=== PATIENT | female | born 1935 | race Caucasian/White ===

== ENCOUNTER 2017-11-04 18:11 | Inpatient (IN) | payer OTHER ==
[~2017-11-04] VITALS: Ht 152.4 cm; Wt 74.4 kg
--- NOTE | 2017-11-04 18:11 | NUR ---
PT BIBA BLS TO BED 6
[2017-11-04 18:18] VITALS: BP 117/38
--- NOTE | 2017-11-04 18:20 | NUR ---
82 YO F BIBA SENT FROM [facility] FOR HYPERNATREMIA, AND INCREASED GENERALIZED WEAKNESS. PT ARRIVES IN C-COLLAR. PER FAMILY, PT HAD A FALL 1-2 MONTHS AGO W/ SURGERY FOR FRACTURED C4 AND C5. PT IS GCS 3 AT THIS TIME AND UPON ARRIVAL. FACILITY REPORTS PT USUALLY OPENS EYES, BUT SHE HAS NOT SINCE ARRIVING TO ER. PT HAS A GTUBE WITH SURROUNDING SKIN INTACT. WILCOX CATHETER INSERTED, WITH 200 ML CLEAR, YELLOW URINE. UNSTAGEABLE WOUNDS TO BACK OF HEAD AND COCCYX. RR TACHYPNIC, SHALLOW AND APPEAR LABORED, WITH SYMMETRICAL RISE AND FALL OF THE CHEST. LUNGS BILATERALLY CLEAR TO AUSCULTATION AT THIS TIME. O2 SAT 90% ON 2L/MIN NC. CMS INTACT. ABD SOFT. ER MD ADAM NOTIFIED OF PT STATUS. PT NEEDS MET. SAFETY PRECAUTIONS IN PLACE. DAUGHTER AT BEDSIDE. WILL CONTINUE TO MONITOR. MED HX: DEMENTIA, ASPIRATION PNA, QUADRIPLEGIC S/P FALL, OPEN REDUCTION OF C4-C5, CORONARY ARTERY BYPASS GRAFT 2007,VENTRAL HERNIA REPAIR, DM
--- NOTE | 2017-11-04 18:30 | NUR ---
PT PLACED SUPINE AT THIS TIME WITH PILLOWS POSITIONED ON HER DOUG PROMINENCES. WILL COTNINUE TO MONITOR.
[2017-11-04] MEDS ORDERED: NACL 0.9% 1,000 ML IV SCH (18:33)
[2017-11-04] MEDS ORDERED: MULT10VI3 IV (18:41)
[2017-11-04] MEDS ORDERED: NOVR SUBQ (18:41)
[2017-11-04] MEDS ORDERED: MEMA5TAB PO (18:41)
[2017-11-04] MEDS ORDERED: ASCO500T45 PO ×2 (18:41→22:58)
[2017-11-04] MEDS ORDERED: METO-485 PO ×2 (18:41→22:58)
[2017-11-04] MEDS ORDERED: ASPI81CT89 PO (18:41)
[2017-11-04] MEDS ORDERED: FERR75LI22 PO (18:41)
[2017-11-04] MEDS ORDERED: ACET-8386 PO (18:41)
[2017-11-04] MEDS ORDERED: GABA100C PO (18:41)
[2017-11-04] MEDS ORDERED: QUET25TA PO (18:41)
[2017-11-04] MEDS ORDERED: LOV40I SUBQ (18:41)
[2017-11-04] MEDS ORDERED: PRO5 PO (18:41)
[2017-11-04] MEDS ORDERED: PIPE1SOL IV ×2 (18:41→22:58)
[2017-11-04] MEDS ORDERED: ALBU2SYR49 PO (18:41)
[2017-11-04] MEDS ORDERED: [UNRECOGNIZED DRUG - CODE] PO (18:41)
[2017-11-04] MEDS ORDERED: ACET-2619 PO (18:41)
--- NOTE | 2017-11-04 19:15 | NUR ---
PATIENT TAKEN TO CT VIA [facility] WITH TECH.
[2017-11-04 19:24] LABS: BASOPHILS % (AUTO) 0.3 % (0.0-2.0); EOSINOPHILS # (AUTO) 0.1 K/uL (0-0.4); EOSINOPHILS % (AUTO) 1.4 % (0.0-4.0); HEMATOCRIT 31.9 % (36-48); HEMOGLOBIN 9.3 g/dL (12.0-16.0); LYMPHOCYTES # (AUTO) 1.7 K/uL (2.5-16.5); LYMPHOCYTES % (AUTO) 18.8 % (20.5-51.1); MEAN CORPUSCULAR HEMOGLOBIN 28 pg (27-31); MEAN CORPUSCULAR HGB CONC 29 g/dL (33-37); MONOCYTES # (AUTO) 0.3 K/uL (0.8-1.0); MONOCYTES % (AUTO) 2.9 % (1.7-9.3); NEUTROPHILS # (AUTO) 6.8 K/uL (1.8-7.7); NEUTROPHILS % (AUTO) 76.6 % (42.2-75.2); PLATELET COUNT (AUTO) 192 K/uL (140-450); RED BLOOD CELL COUNT(AUTO) 3.32 MIL/uL (4.20-5.40); RED CELL DISTRIBUTION WIDTH 16.7 % (11.6-13.7); WHITE BLOOD COUNT (AUTO) 8.8 K/uL (4.8-10.8)
--- NOTE | 2017-11-04 19:28 | NUR ---
PT RETURN FROM CT.
[2017-11-04 19:49] LABS: ALBUMIN 1.5 g/dL (3.4-5.0); ANION GAP 3.6 (8-16); ASPARTATE AMINOTRANSFERASE 190 U/L (15-37); CARBON DIOXIDE 39.7 mmol/L (21-32); CHLORIDE 139 mmol/L (98-107); CREATININE 0.7 mg/dL (0.6-1.3); GLUCOSE 162 mg/dL (74-106); POTASSIUM 3.3 mmol/L (3.5-5.1); TOTAL BILIRUBIN 0.2 mg/dL (0.0-1.0); UREA NITROGEN, BLOOD 56 mg/dL (7-18)
--- NOTE | 2017-11-04 19:51 | NUR ---
PERIPHERAL IV UNABLE TO BE INSERTED DUE TO PERIPHERAL EDEMA. ORE WASHER NOTIFIED, AND CHARGE UNABLE TO INSERT IV. ER MD WATTERS NOTIFIED. WILL CONTINUE TO MONITOR.
[2017-11-04 19:57] LABS: SODIUM SERUM 179 mmol/L (136-145)
--- NOTE | 2017-11-04 19:57 | NUR ---
CRITICAL LAB VALUE FOR SODIUM 179 RECEIVED AT THIS TIME AND VERIFIED BY YORDAN IN THE LAB. ER MD WATTERS NOTIFIED.
--- NOTE | 2017-11-04 19:59 | NUR ---
CRITICAL LAB VALUE LACTIC ACID 2.4 RECEIVED FOM YORDAN IN THE LAB. ER MD WATTERS NOTIFIED.
--- NOTE | 2017-11-04 20:25 | NUR ---
PT TURNED ONTO HER RIGHT SIDE AT THIS TIME WITH ADDITIONAL PILLOWS PLACED ON DOUG PROMINENCES. WILL CONTINUE TO MONITOR.
--- NOTE | 2017-11-04 20:53 | NUR ---
ER MD WATTERS AT BEDSIDE AT THIS TIME.
[2017-11-04] MEDS ORDERED: DOCUSATE SODIUM 100 MG GELCAP PO PRN (21:15)
[2017-11-04] MEDS ORDERED: ACETAMINOPHEN 325 MG TAB PO PRN (21:15)
[2017-11-04] MEDS ORDERED: ONDANSETRON 4 MG/2 ML VIAL IM/IVP PRN (21:15)
[2017-11-04] MEDS ORDERED: NACL 0.9% 1,000 ML IV ONE (21:30)
[2017-11-04] MEDS ORDERED: MECLIZINE 25 MG TAB PO SCH (21:30)
--- NOTE | 2017-11-04 21:30 | NUR ---
PATIENT TAKEN TO CT VIA [facility] WITH TECH.
[2017-11-04 21:42] LABS: PROTHROMBIN TIME 10.2 secs (10.8-13.4)
[2017-11-04] MEDS ORDERED: NACL 0.45% 1,000 ML IV SCH (21:45)
[2017-11-04 21:53] LABS: CHOL/HDL RATIO 4.1 (1-4.5); FREE T4 (FREE THYROXINE) 0.7 ng/dL (0.76-1.46); MAGNESIUM 2.8 mg/dL (1.8-2.4); PHOSPHORUS 3.3 mg/dL (2.5-4.9); THYROID STIMULATING HORMONE 2.97 uIU/mL (0.34-3.74)
--- NOTE | 2017-11-04 21:55 | NUR ---
PATIENT RETURN FROM CT.
--- NOTE | 2017-11-04 22:21 | NUR ---
PT STILL ON THE FLOOR DUE TO PICTURES BEING TAKEN OF UNSTAGEABLE WOUNDS TO VARIOUS LOCATIONS OF PT BODY AND CLEANING PT UP. CHARGE NURSE KESHA AWARE. SHAHEED WATTERS AWARE. PT HEADING TO THE FLOOR AT THIS TIME ACCOMPANIED BY FEI PRESCOTT AND CITLALLI CARRASCO. Addendum: 11/06/17 at 0922 by [email or web address] PT STILL ON THE ER FLOOR DUE TO PICTURES BEING TAKEN OF UNSTAGEABLE WOUNDS TO VARIOUS LOCATIONS OF PT BODY AND CLEANING PT UP. PT HAS UNSTAGEABLE WOUND TO THE BACK OF THE HEAD R/T HARD C-COLLAR BEING WORN FOR EXTENDED PERIOD OF 2 MONTHS PER FAMILY. THE WOUND WAS ROUGHLY 3 INCH BY 4 INCH AND CIRCULAR WITH WHAT APPEARS TO BE BONE EXPOSED. THE SKIN SURROUNDING OF THE WOUND APPEARS TO BE PINK AND FLESHY AT THIS TIME. WOUND TO COCCYX HAD A LARGE, ISLAND DRESSING THAT WAS SATURATED WITH GREEN EXUDATE AND FOUL-SMELLING. THE WOUNDS MEASURE ROUGHLY 5 INCH BY 6 INCH AND CIRCULAR IN SHAPE. FECES WAS IN THE WOUND, BUT NO FECES WERE NOTED IN HER ADULT BREIF. THE WOUND WAS CLEANED BY MYSELF DURING THIS ASSESSMENT. EXPOSED DOWN TO WHAT APPEARS TO BE THE BONE, WITH NOTED ESCHAR AND POSSIBLE NECROSIS OF SURROUNDING SKIN. PT TURNED ONTO HER LEFT SIDE AT THIS TIME TO PREVENT FURTHER BREAKDOWN. CHARGE NURSE KESHA AWARE. SHAHEED WATTERS AWARE. PT HEADING TO THE FLOOR AT THIS TIME ACCOMPANIED BY FEI PRESCOTT AND CITLALLI CARRASCO.
--- NOTE | 2017-11-04 22:30 | NUR ---
Patient will be admitted to care of [facility]. Admitted to TELE. Will go to room 123A. Belongings list completed. Report to CITLALLI BROOKS.
[2017-11-04] MEDS ORDERED: IBUPROFEN 400 MG TAB GT PRN (22:40)
--- NOTE | 2017-11-04 22:45 | NUR ---
RECEIVED FROM ER PER AMAN PT. ACCOMPANIED BY FAMILY MEMBERS. PT. RESIDENT OF [facility]. RECEIVED WITH C-COLLAR IN PLACE. 02 AT 4 LPM/NC , GT IN PLACE, WILCOX CATHETER IN PLACE . PT. IS LETHARGIC. MOANS WHEN MOVED BUT DOES NOT OPEN EYES. NON VERBAL. TELEMETRY MONITORING. CARE PLANS FOR THE NIGHT DISCUSSED BY MD TEJADA TO FAMILY MEMBERS. NEEDS WILL BE ANTICIPATED AND WILL BE MET. PT. SKIN NOT INTACT RT PER STOCK PITCHER WITH SURGICAL WOUND TO BACK OF HEAD AND SACRAL WOUND. SEE PICTURES. HX. OF QUADRIPLEGIA, DEMENTIA, PNA ASPIRATION, VENTRAL HERNIA, DM AND POST FALL IN SNF.
[2017-11-04] MEDS ORDERED: VAN500I IV (22:58)
[2017-11-04] MEDS ORDERED: MEMA5TAB GT (22:58)
[2017-11-04] MEDS ORDERED: GABA100C GT (22:58)
[2017-11-04] MEDS ORDERED: IBUP-1842 GT (22:58)
[2017-11-04] MEDS ORDERED: LEVEMIR SUBQ (22:58)
[2017-11-04] MEDS ORDERED: LACT10SO1 PO (22:58)
[2017-11-04] MEDS ORDERED: FURO-572 GT (22:58)
[2017-11-04] MEDS ORDERED: FERR75LI22 GT (22:58)
--- NOTE | 2017-11-04 23:00 | NUR ---
FAMILY MEMBERS LEFT. NEEDS OF PPT. WILL BE ATTENDED. TOTAL CARE. IMMOBILE.
[2017-11-04] MEDS ORDERED: KCL 20 MEQ/WATER INJ PREMIX 100 ML IV SCH (23:10)
--- NOTE | 2017-11-04 23:17 | NUR ---
INFORMED MD TEJADA THAT PT.S 02 SAT WITH 4LPM/NC IS AT 80 %. SAID "I WILL ORDER RESPIRATORY THERAPIST TO TITRATE IT. " INFORMED HIM OF CT ABDOMEN AND PELVIS WITHOUT CONTRAST RESULT FAXED IN BY RADIOLOGIST. AWARE.
[2017-11-04 23:30] VITALS: BP 94/33
--- NOTE | 2017-11-04 23:32 | NUR ---
RESPIRATORY THERAPIST IN HERE TO TITRATE 02 FOR PT. NOW ON 02 AT 6LPM/OXYMIZER NOW 02 SAT AT 96 %.
[2017-11-04] MEDS ORDERED: PIPERACILLIN/TAZOBACTAM 2.25 GM VIAL IV ONE (23:42)
[2017-11-05] VITALS (24 sets, daily range): BP systolic 78–116; BP diastolic 26–95
--- NOTE | 2017-11-05 00:06 | NUR ---
PAGED RESPIRATORY THERAPIST TO RE-TITRATE 02. PT. IN HERE TO OBSERVE PT. INFORMED MD TEJADA OF PRESENT SITUATION OF PT.
--- NOTE | 2017-11-05 00:10 | NUR ---
RESPIRATORY THERAPIST TITRATED 02 TO 9 LITERS NOW . 02 SAT 93 %.
[2017-11-05] MEDS ORDERED: FUROSEMIDE 40 MG/4 ML VIAL IVP SCH (01:50)
[2017-11-05 02:42] LABS: ANION GAP 2.9 (8-16); CARBON DIOXIDE 37.7 mmol/L (21-32); CHLORIDE 143 mmol/L (98-107); CREATININE 0.6 mg/dL (0.6-1.3); GLUCOSE 138 mg/dL (74-106); POTASSIUM 3.6 mmol/L (3.5-5.1); UREA NITROGEN, BLOOD 50 mg/dL (7-18)
[2017-11-05 02:46] LABS: SODIUM SERUM 180 mmol/L (136-145)
--- NOTE | 2017-11-05 02:53 | NUR ---
CRITICAL LAB VALUE: SODIUM 180. SPOKE WITH DR. TEJADA AND HE WILL BE PLACING AN ORDER TO INCREASE IVF TO NS 4.5% @ 100ML/HR
--- NOTE | 2017-11-05 03:15 | NUR ---
PT. IVF FLUID INCREASED TO 100 ML/H. IVF SITE TO LEFT FOREARM#22 WITH GOOD BLOOD RETURN. NEEDS ANTICIPATED AND WILL BE MET. TURNED Q 2H SIDE TO SIDE ONLY.
[2017-11-05] MEDS ORDERED: PIPERACILLIN IV SCH (05:00)
[2017-11-05] MEDS ORDERED: DEXTROSE IV SCH (05:00)
[2017-11-05] MEDS ORDERED: TAZOBACTAM IV SCH (05:00)
[2017-11-05] MEDS ORDERED: PIPERACILLIN/TAZOBACTAM 2.25 GM VIAL IV ONE (05:02)
[2017-11-05] MEDS: BLOOD GLUCOSE MONITORING 1 DEV DEV FS SCH ×4 (05:10→21:00)
[2017-11-05 06:53] LABS: BASOPHILS % (AUTO) 0.2 % (0.0-2.0); EOSINOPHILS # (AUTO) 0.1 K/uL (0-0.4); EOSINOPHILS % (AUTO) 1.7 % (0.0-4.0); HEMATOCRIT 22.5 % (36-48); LYMPHOCYTES % (AUTO) 17.6 % (20.5-51.1); MEAN CORPUSCULAR HEMOGLOBIN 29 pg (27-31); MEAN CORPUSCULAR HGB CONC 30 g/dL (33-37); MEAN CORPUSCULAR VOLUME 95.4 fL (80-94); MONOCYTES # (AUTO) 0.2 K/uL (0.8-1.0); MONOCYTES % (AUTO) 3.5 % (1.7-9.3); NEUTROPHILS # (AUTO) 4.5 K/uL (1.8-7.7); PLATELET COUNT (AUTO) 144 K/uL (140-450); RED BLOOD CELL COUNT(AUTO) 2.36 MIL/uL (4.20-5.40); RED CELL DISTRIBUTION WIDTH 16.8 % (11.6-13.7); WHITE BLOOD COUNT (AUTO) 5.8 K/uL (4.8-10.8)
--- NOTE | 2017-11-05 07:22 | NUR ---
OXYMIZER TITRATED TO 5L. NURSE AWARE WILL CONTINUE TO MONITOR. PT NOT SOB AT THIS TIME.
--- NOTE | 2017-11-05 07:30 | NUR ---
ENDORSED TO THE NEXT RN FOR CONTINUITY OF CARE. PT. OPENS EYES AT THIS TIME. NONE VERBAL STILL. NEEDS ANTICIPATED AND MET. TURNED TO SIDES ONLY AND NOT SUPINE IN THIS SHIFT. WILCOX CATHETER DRAINING WELL. FOR US ABD. AND NEEDS TO BE NPO. ENDORSED TO THE AM RN.
--- NOTE | 2017-11-05 07:50 | NUR ---
PATIENT IS DROWSY, EYE OPEN SPONTANEOUSLY, NO VERBAL RESPONSE. RESPIRATION EVEN, UNLABOR ON 5L OXIMIZER. SKIN DRY AND WARM. WILCOX IS DRAINING WELL. GTUBE PATENT AND INTACT. IV PATENT AND INTACT. FLACC 0. NO DISTRESS NOTED AT THIS TIME. BED AT LOW POSITION, SIDE RAILS UP. CALL LIGHT WITHIN REACH
[2017-11-05 07:51] LABS: HEMOGLOBIN 6.8 g/dL (12.0-16.0)
[2017-11-05 08:19] LABS: ANION GAP 7.6 (8-16); CARBON DIOXIDE 34.7 mmol/L (21-32); CHLORIDE 142 mmol/L (98-107); POTASSIUM 3.3 mmol/L (3.5-5.1); SODIUM SERUM 181 mmol/L (136-145)
[2017-11-05 08:20] LABS: CREATININE 0.6 mg/dL (0.6-1.3); GLUCOSE 113 mg/dL (74-106); UREA NITROGEN, BLOOD 50 mg/dL (7-18)
[2017-11-05 08:21] LABS: MAGNESIUM 2.7 mg/dL (1.8-2.4); PHOSPHORUS 2.9 mg/dL (2.5-4.9)
[2017-11-05] MEDS ORDERED: FERROUS SULFATE 300 MG/5 ML UDC GT SCH (09:00)
[2017-11-05] MEDS ORDERED: FUROSEMIDE 20 MG TAB GT SCH (09:00)
[2017-11-05] MEDS ORDERED: ASPIRIN 81 MG TAB.CHEW PO SCH (09:00)
[2017-11-05] MEDS: METOCLOPRAMIDE 10 MG TAB PO SCH ×2 (09:00→21:58)
[2017-11-05] MEDS: ATORVASTATIN 20 MG TAB PO SCH (09:00)
[2017-11-05] MEDS: FUROSEMIDE 20 MG/2 ML VIAL IVP SCH (09:00)
[2017-11-05] MEDS: LACTULOSE 20 GM/30 ML UDC PO SCH (09:00)
[2017-11-05] MEDS: ASCORBIC ACID 500 MG TAB PO SCH (09:00)
[2017-11-05] MEDS ORDERED: VANCOMYCIN 500 MG VIAL IV SCH (09:00)
--- NOTE | 2017-11-05 09:00 | NUR ---
PATIENT IS LETHARGIC, ONLY RESPONSIVE TO NAME AND SHAKING. PO MEDS WERE HELD.
--- NOTE | 2017-11-05 09:00 | NUR ---
GTUBE IS IN PLACE, INTACT, AND DRY. RESIDUAL CHECKED AT 5ML. MEDS WERE GIVEN PER ORDER
--- NOTE | 2017-11-05 09:18 | NUR ---
PATIENT HAS BEEN SCREENED AND CATEGORIZED HIGH NUTRITION RISK. PATIENT WILL BE SEEN WITHIN 1-2 DAYS OF ADMISSION. 11/05/17 11/06/[address]
[2017-11-05] MEDS: MEMANTINE 10 MG TAB GT SCH ×2 (09:51→21:58)
[2017-11-05] MEDS: GABAPENTIN 100 MG CAP GT SCH ×3 (09:51→16:39)
[2017-11-05] MEDS: DEXTROSE 5% 1,000 ML IV SCH ×2 (09:52→20:25)
[2017-11-05] MEDS: INSULIN LANTUS 100 UNITS/ML 10 ML VIAL SUBQ SCH (09:58)
[2017-11-05] MEDS ORDERED: VANCOMYCIN 500 MG in DEXTROSE 5% 100 ML IV SCH ×2 (10:00→21:00)
--- NOTE | 2017-11-05 10:00 | NUR ---
PATIENT WAS REPOSITIONED, PERINEAL CARE WAS GIVEN. OPTIFOAM WAS APPLIED TO SACRAL WOUND.
[2017-11-05] MEDS ORDERED: NACL 0.9% 500 ML IV SCH ×2 (12:00→12:55)
--- NOTE | 2017-11-05 12:01 | NUR ---
DR. HERRERA WAS MADE AWARE OF PATIENT'S BP TRENDING DOWN, WILL MEDICATE PER ORDER
--- NOTE | 2017-11-05 12:57 | NUR ---
Social Service Notes: I attempted to meet with Patient, She is non-verbal and unable to empress her needs at this time. These senior copywriter will be calling Patient's Family to confirm and gather her information.
[2017-11-05] MEDS ORDERED: SODIUM FERRIC GLUCONATE 125 MG in NACL 0.9% 100 ML IV SCH (13:00)
--- NOTE | 2017-11-05 13:03 | NUR ---
DR. HERRERA WAS MADE AWARE OF HER BP AFTER NS BOLUS, AND POTASSIUM 3.3. NEW ORDER WAS RECEIVED. WILL MEDICATE PER ORDER.
--- NOTE | 2017-11-05 13:30 | NUR ---
PATIENT WAS REPOSITIONED. WOUND DRESSING WAS CHANGED. WOUND CULTURE WAS OBTAINED AND SENT TO LAB PER ORDER.
--- NOTE | 2017-11-05 13:30 | NUR ---
PATIENT IS LETHARGIC, RESPONDING TO PAIN. RESPIRATION IS LABORED, TACHYPNIEC ON 7L OXIMIZER. RT WAS NOTIFIED. BP DECREASED TO 84/29. DR. HERRERA WAS MADE AWARE
[2017-11-05] MEDS: VANCOMYCIN 500 MG in DEXTROSE 5% 100 ML IV SCH ×2 (13:35→23:31)
[2017-11-05] MEDS: PIPER/TAZO 2.25GM/D5W PREMIX 50 ML IV SCH ×3 (13:35→23:31)
[2017-11-05] MEDS ORDERED: NOREPINEPHRINE 4 MG in DEXTROSE 5% 250 ML IV PRN (14:05)
--- NOTE | 2017-11-05 14:05 | NUR ---
Travel Manager Notes: I attempted to call Patient's daughter Filomena Yen at to confirm and gather Patient's information. Patient's Daughter did not respond the call and I left her a voice mail MSG with my contact information and a request for a call back.
--- NOTE | 2017-11-05 14:21 | NUR ---
11/05/17 RD INITIAL ASSESSMENT COMPLETED PLEASE REFER TO NUTRITION ASSESSMENT UNDER CARE ACTIVITY FOR ESTIMATED NUTRITIONAL NEEDS. 1. RECOMMEND NUTREN PULMONARY THROUGH G-TUBE AT GOAL RATE OF 45ML/HR, PROVIDING 1080 TOTAL ML, 1620 KCAL, 73 GM PROTEIN, AND 845 ML FREE WATER. THIS WILL MEET 100% OF PT'S ESTIMATED NEEDS. 2. RECOMMEND 125ML Q4H FOR WATER FLUSHES. 3. RD TO FOLLOW-UP 2-3 DAYS, HIGH RISK MARI GIRON RD
[2017-11-05] MEDS ORDERED: ALBUMIN HUMAN 25% 100 ML IV SCH (15:00)
--- NOTE | 2017-11-05 15:04 | NUR ---
Sludge Filtration Operator Notes: I attempted to speak Patient's daughter Filomena Yen and call her several times (3x) at to confirmed, gather patient's information, and inform her of patient been transferred to ICU unit. Patient's Daughter did not respond the calls and I left her voicemail MSGS with my contact information and a request for a call back
--- NOTE | 2017-11-05 15:08 | NUR ---
Black And White Printer Operator Notes: I call [facility], I spoke to Janet to discuss and gather Patient's information, confirmed Patien'ts daughter contact information. Janet Stated that patient was at [facility] since the beganin of october and placed to their facility since 10/18/17. We confirmed Patient's daughter contact information and only number of contact is . Janet then transfer my call with RN that had more information about Patient. According to Janine patient has no issues with medications and is bed bound with wounds in pelvic area, has 02. Patient is on a 7 days skilled bed hold and will be able to returned to [facility] when ready and clear for discharge. I thank RN for Information and ended the call.
--- NOTE | 2017-11-05 15:11 | NUR ---
ENDORSEMENT GIVEN TO THE SENIOR MANAGER CREATIVE SERVICES FOR CONTINUITY OF CARE.
--- NOTE | 2017-11-05 15:15 | NUR ---
RECEIVED PT FROM MICHOACANO POWELL/MST RN. PT IS NOT VERBAL BUT RESPONDS TO PAIN, OPENS HER EYES SPONTANEOUSLY. SKIN IS NOT INTACT; SEE WOUND ASSESSMENT AND CHART WITH PICTURES; OPEN WOUNDS ARE RED, WITH A FOUL ODER AND DISCHARGE.. PT HAD C-COLLAR ON FROM HER SURGERY IN SEPTEMBER 2017. SHE IS PARAPLEGIC. DOES NOT TRACT. PUPILS ARE SLUGGISH AND DO NOT RESPOND EVERY TIME ASSESSED. PT HAS WILCOX CATH IN PLACE, BRIGHT YELLOW URINE IN BAG. PT IS EDEMATOUS, PITTING +2 ON ALL EXTREMITIES. S1S2 HEARD, BRADYCARDIA. PTS LUNGS SOUND CONGESTED; WHEEZING PRESENT IN LOWER LOBES WITH. PT HAS G-TUBE IN PLACE, ZERO RESIDUALS, AREAS AROUND G-TUBE RED, HAS FOUL ODER AND DISCHARGE (WILL NOTIFY AND TAKE CULTURE). RIGHT WRIST PERIPHERAL IV 24 RAUL, FLUSHES, ASYMPTOMATIC. LEFT WRIST PERIPHERAL IV RAUL 22 FLUSHES, ASYMPTOMATIC. BED LOCKED AND IN LOWEST POSITION. CALL LIGHT WITHIN REACH. WILL CLOSELY MONITOR.
[2017-11-05 15:30] LABS: ANION GAP 6.8 (8-16); CARBON DIOXIDE 34.1 mmol/L (21-32); CHLORIDE 141 mmol/L (98-107); CREATININE 0.6 mg/dL (0.6-1.3); GLUCOSE 132 mg/dL (74-106); UREA NITROGEN, BLOOD 45 mg/dL (7-18)
[2017-11-05 15:34] LABS: POTASSIUM 2.9 mmol/L (3.5-5.1); SODIUM SERUM 179 mmol/L (136-145)
--- NOTE | 2017-11-05 15:40 | NUR ---
SPOKE WITH DR. HERRERA ABOUT POLST SAYING "GENERALLY NO INTENSIVE CARE". HE IS MADE AWARE.
--- NOTE | 2017-11-05 16:06 | NUR ---
REDUCED OXYMIZER TO 7L.
[2017-11-05] MEDS ORDERED: KCL 20 MEQ/WATER INJ PREMIX 200 ML IV SCH (16:30)
[2017-11-05] MEDS: SODIUM FERRIC GLUCONATE 125 MG in NACL 0.9% 100 ML IV SCH (16:47)
--- NOTE | 2017-11-05 17:44 | NUR ---
CALLED PT'S DAUGHTER FOR SURGERY CONSENT. NO ANSWER, LEFT A GENERIC VOICEMAIL ASKING FOR A CALL BACK.
--- NOTE | 2017-11-05 18:18 | NUR ---
DR DRAKE SPOKE WITH PT DAUGHTER ABOUT ID SURGERY THAT IS GOING TO TAKE PLACE. THEY ARE TAKING PT TO THE OR NOW.
[2017-11-05] MEDS ORDERED: BUPIVACAINE-MPF/EPI 0.25% 30 ML VIAL INJ ONE (18:49)
--- NOTE | 2017-11-05 19:10 | NUR ---
gave report to night rn for continuation of care
--- NOTE | 2017-11-05 19:15 | NUR ---
RECEIVED REPORT FROM DAY NURSE, PT CURRENTLY IN OR.
--- NOTE | 2017-11-05 19:32 | NUR ---
RECIEVED REPORT FROM OR NURSE JESSICA. PT SEDATED, AROUSABLE. NONVERBAL. BP 83/28 HR 50S SINUS ANGEL. PT COOL TO TOUCH +1 EDEMA TO UPPER EXTREMITIES. LUNGS DIMINISHED. ABD SOFT NON DISTENDED PEG TUBE CLAMPED. F/C CLEAR YELLOW URINE. SKIN NON INTACT. SACRAL COCCYX WOUND NOTED, WITH DRESSING CDI. PERIPHERAL IVS X2 TO BILATERAL ARMS. WILL CONTINUE TO OBSERVE.
--- NOTE | 2017-11-05 19:45 | NUR ---
SPOKE WITH DR. HERNANDEZ ABOUT PLAN OF CARE, STATED NO COMPRESSIONS, ALL OTHER LIFE SAVING TREATMENT OK. WILL CONTINUE TO MONITOR.
--- NOTE | 2017-11-05 20:00 | NUR ---
@ BEDSIDE. MD CALLED DAUGHTER TO UPDATE. PER DAUGHTER AND MD CODE STATUS MODIFIED TO NO COMPRESSIONS ALL OTHER LIFE SAVING TREATMENT OK. MD TO UPDATE ORDER WILL CONTINUE TO OBSERVE. SEE CHART FOR FURTHER DETAILS.
--- NOTE | 2017-11-05 20:55 | NUR ---
TIMEOUT TAKEN @BEDSIDE WITH DR. HERNANDEZ AND CHIEF MINISTER FOR CENTRAL LINE INSERTION. CONSENT GIVEN BY DAUGHTER, VIVIANE.
[2017-11-05] MEDS ORDERED: QUEtiapine FUMARATE 25 MG TAB ONE (20:56)
--- NOTE | 2017-11-05 21:11 | NUR ---
DR. GALEANO AT BEDSIDE TO SEE PT. WILL FOLLOW-UP WITH ANY ORDER.
[2017-11-05] MEDS ORDERED: NOREPINEPHRINE 4 MG/4 ML VIAL IV ONE (21:42)
[2017-11-05] MEDS: QUEtiapine FUMARATE 25 MG TAB PO SCH (21:58)
[2017-11-05] MEDS: NOREPINEPHRINE 8 MG in DEXTROSE 5% 250 ML IV PRN (21:59)
[2017-11-05 22:29] LABS: ANION GAP 5.7 (8-16); CARBON DIOXIDE 35.2 mmol/L (21-32); CHLORIDE 140 mmol/L (98-107); CREATININE 0.5 mg/dL (0.6-1.3); GLUCOSE 111 mg/dL (74-106); UREA NITROGEN, BLOOD 42 mg/dL (7-18)
[2017-11-05 22:30] LABS: SODIUM SERUM 178 mmol/L (136-145)
[2017-11-05 22:31] LABS: POTASSIUM 2.9 mmol/L (3.5-5.1)
--- NOTE | 2017-11-05 23:24 | NUR ---
SPOKE WITH GIG PHARMACIST ABOUT ZOSYN SCHEDULE, INFORMED PHARMACIST THAT LAST DOSE WAS GIVEN @ 2200 and 0000 DOSE WAS TOO EARLY. PHARMACIST STATED OK TO GIVE 0000 DOSE AND STAY WITH ANTIBIOTIC SCHEDULE.
[2017-11-06] VITALS (96 sets, daily range): BP systolic 72–163; BP diastolic 25–120
--- NOTE | 2017-11-06 00:15 | NUR ---
PT TURNED AND REPOSITIONED, BULKY DRESSING CDI TO SACRAL/COCCYX AREA. WILL CONTINUE TO OBSERVE.
--- NOTE | 2017-11-06 01:00 | NUR ---
PT ASLEEP, COMFORTABLE, RELAXED. NO S/S OF ACUTE DISTRESS NOTED. LEVOPHED @ 8 MCG//MIN. WILL CONTINUE TO OBSERVE.
--- NOTE | 2017-11-06 02:30 | NUR ---
PT ASLEEP NO ACUTE DISTRESS NOTED. WILL CONTINUE TO MONITOR
--- NOTE | 2017-11-06 04:00 | NUR ---
PT TURNED AND REPOSITIONED; BATH GIVEN. LINEN CHANGED. SKIN BREAKDOWN NOTED TO BILATERAL FEET. WILL CONTINUE TO OBSERVE.
[2017-11-06] MEDS: PIPER/TAZO 2.25GM/D5W PREMIX 50 ML IV SCH ×4 (05:28→23:49)
[2017-11-06] MEDS: KCL 20 MEQ/WATER INJ PREMIX 100 ML IV SCH ×2 (05:29→06:41)
--- NOTE | 2017-11-06 06:00 | NUR ---
DR. DEJESUS @ BEDSIDE.
[2017-11-06] MEDS ORDERED: FUROSEMIDE 20 MG/2 ML VIAL IVP ONE (06:20)
[2017-11-06 06:32] LABS: HEMATOCRIT 21.4 % (36-48); MEAN CORPUSCULAR HEMOGLOBIN 28 pg (27-31); MEAN CORPUSCULAR HGB CONC 30 g/dL (33-37); MEAN CORPUSCULAR VOLUME 95.2 fL (80-94); PLATELET COUNT (AUTO) 128 K/uL (140-450); RED BLOOD CELL COUNT(AUTO) 2.25 MIL/uL (4.20-5.40); RED CELL DISTRIBUTION WIDTH 16.8 % (11.6-13.7); WHITE BLOOD COUNT (AUTO) 8.5 K/uL (4.8-10.8)
[2017-11-06] MEDS: INSULIN LISPRO SLIDING SCALE 100 UNITS/ML VIAL SUBQ PRN ×2 (06:47→13:01)
[2017-11-06] MEDS: BLOOD GLUCOSE MONITORING 1 DEV DEV FS SCH ×4 (06:47→20:30)
[2017-11-06 06:58] LABS: MAGNESIUM 2.4 mg/dL (1.8-2.4); PHOSPHORUS 2.6 mg/dL (2.5-4.9)
[2017-11-06 07:00] LABS: ALBUMIN 1.4 g/dL (3.4-5.0); ANION GAP 5.1 (8-16); ASPARTATE AMINOTRANSFERASE 35 U/L (15-37); CARBON DIOXIDE 34.6 mmol/L (21-32); CHLORIDE 134 mmol/L (98-107); CREATININE 0.6 mg/dL (0.6-1.3); GLUCOSE 269 mg/dL (74-106); TOTAL BILIRUBIN 0.4 mg/dL (0.0-1.0); UREA NITROGEN, BLOOD 39 mg/dL (7-18)
[2017-11-06 07:05] LABS: HEMOGLOBIN 6.3 g/dL (12.0-16.0)
[2017-11-06 07:06] LABS: EOSINOPHILS % (MANUAL) 2 % (0-4); LYMPHOCYTES % (MANUAL) 10 % (20-46); MONOCYTES % (MANUAL) 3 % (5-12)
--- NOTE | 2017-11-06 07:19 | NUR ---
RECEIVED REPORT FROM NIGHT RN. PT IS NON-VERBAL, OPENS EYES SPONTANEOUSLY, WITHDRAWALS TO PAIN. PUPILS ARE SLUGGISH, LEFT IS MORE RESPONSIVE THAN RIGHT. PT IS ON OXYMIZER 10L. PT IS WEARING A C-COLLAR DUE TO SPINAL SURGERY. PT'S SKIN IS NOT INTACT, SEE WOUND ASSESSMENT, SACRAL WOUND HAS LARGE DRESSING IN PLACE, CLEAN AND DRY, BACK OF HEAD HAS A DRESSING CLEAN AND DRY. PT HAS A RIGHT IJ CENTRAL LINE, TRIPLE LUMEN; DRESSING DRY AND INTACT, ALL PORTS FLUSH WITH GOOD BLOOD RETURN, PT HAS RIGHT WRIST 24 RAUL, DRY AND INTACT, ASYMPTOMATIC. PT HAS G-TUBE, AREA AROUND OPENING IS RED, LEAKING, HAS AN ODER; PT IS ON NUTREN PULMO; 5ML RESIDUALS. PT HAS WILCOX CATHETER, YELLOW URINE IN UROMETER, WITH SEDIMENTS IN THE TUBE. PT HAS SCDS ON AND HEEL BOOTS. PT IS ON LEVOPHED. BED IS LOCKED AND IN LOWEST POSITION WITH HOB ELEVATED, CALL LIGHT IS WITHIN REACH, ALARM IS ON. WILL CLOSELY MONITOR.
--- NOTE | 2017-11-06 07:19 | NUR ---
REPORT GIVEN TO DAY NURSE FOR CONTINUITY OF CARE.
[2017-11-06 07:24] LABS: POTASSIUM 2.7 mmol/L (3.5-5.1); SODIUM SERUM 171 mmol/L (136-145)
--- NOTE | 2017-11-06 07:48 | NUR ---
ASLEEP SATURATION 100% ON SUPPLEMENTAL OXYGEN AT 11 LPM VIA OXYMIZER TITRATED FIO2 TO 7 LPM REINSPECTOR TO MONITOR INDIO/CITLALLI AWARE
[2017-11-06] MEDS: DEXTROSE 5% 1,000 ML IV SCH (09:11)
[2017-11-06] MEDS: LACTULOSE 20 GM/30 ML UDC PO SCH (09:14)
[2017-11-06] MEDS: ATORVASTATIN 20 MG TAB PO SCH (09:14)
[2017-11-06] MEDS: ASCORBIC ACID 500 MG TAB PO SCH (09:14)
[2017-11-06] MEDS: GABAPENTIN 100 MG CAP GT SCH ×3 (09:14→17:47)
[2017-11-06] MEDS: FUROSEMIDE 20 MG/2 ML VIAL IVP SCH (09:14)
[2017-11-06] MEDS: MEMANTINE 10 MG TAB GT SCH ×2 (09:15→20:30)
[2017-11-06] MEDS: METOCLOPRAMIDE 10 MG TAB PO SCH ×2 (09:15→20:31)
[2017-11-06] MEDS: KCL 20 MEQ/WATER INJ PREMIX 200 ML IV SCH ×2 (09:17→20:32)
[2017-11-06] MEDS: INSULIN LANTUS 100 UNITS/ML 10 ML VIAL SUBQ SCH (09:28)
--- NOTE | 2017-11-06 10:08 | NUR ---
DR. BARCENAS CAME TO SEE PT. ASSESSED SITUATION AND CALLED DAUGHTER, VIVIANE. CHANGED CODE STATE BACK TO DNR; ACLS DRUGS AND BIPAP ONLY.
--- NOTE | 2017-11-06 10:15 | NUR ---
CALL RESIDENTS TO ASK ABOUT: NEPHRO FOLLOW UP CODE STATUS CHANGE VANCO DOSING WILL FOLLOW UP
[2017-11-06] MEDS ORDERED: VANCOMYCIN PER PHARMACY MC PRN (12:00)
[2017-11-06] MEDS: POTASSIUM CHL 20 MEQ/ 1/2 NS 1,000 ML IV SCH ×2 (12:42→20:30)
[2017-11-06] MEDS ORDERED: KCL 20 MEQ/WATER INJ PREMIX 100 ML IV ONE (12:48)
--- NOTE | 2017-11-06 12:55 | NUR ---
PT IS RESTING IN BED, FLACC 0.
--- NOTE | 2017-11-06 14:00 | NUR ---
PTS DAUGHTERS ARE AT BEDSIDE. UPDATED FAMILY ON STATUS AND WILL CALL WITH ANY UPDATES.
[2017-11-06] MEDS: VANCOMYCIN HCL 750 MG in DEXTROSE 5% 250 ML IV SCH (14:11)
[2017-11-06 14:21] LABS: POTASSIUM 3.8 mmol/L (3.5-5.1)
[2017-11-06 14:26] LABS: ANION GAP 7.4 (8-16); CARBON DIOXIDE 33.4 mmol/L (21-32); CHLORIDE 130 mmol/L (98-107); CREATININE 0.6 mg/dL (0.6-1.3); GLUCOSE 283 mg/dL (74-106); UREA NITROGEN, BLOOD 36 mg/dL (7-18)
[2017-11-06 14:33] LABS: SODIUM SERUM 167 mmol/L (136-145)
[2017-11-06] MEDS: NOREPINEPHRINE 8 MG in DEXTROSE 5% 250 ML IV PRN (15:28)
--- NOTE | 2017-11-06 16:42 | NUR ---
SATURATION 100% ON SUPPLEMENTAL OXYEN AT 7 LPM VIA OXYMIZER TITRATED FIO2 TO 4 LPM KARYN/RN INFORMED OF CHANGE
--- NOTE | 2017-11-06 17:29 | NUR ---
PT IS SLEEPING IN BED. FLACC 0.
[2017-11-06] MEDS: SODIUM FERRIC GLUCONATE 125 MG in NACL 0.9% 100 ML IV SCH (17:44)
--- NOTE | 2017-11-06 18:05 | NUR ---
DR PORTER CAME TO ASSESS PATIENT. NO NEW ORDERS. WILL COME SEE PT. TOMORROW.
--- NOTE | 2017-11-06 19:15 | NUR ---
RECEIVED REPORT FROM DAY NURSE NO ACUTE DISTRESS NOTED. WILL CONTINUE TO OBSERVE.
--- NOTE | 2017-11-06 19:30 | NUR ---
PT ASLEEP, MOANS TO TOUCH + 3 BRISK PERRL, PT UNABLE TO FOLLOW COMMANDS. FLACCID UPPER AND LOWER EXTREMITIES. QUADRIPLEGIC. C COLLAR IN PLACE, C SPINE PRECAUTIONS. GCS 9. NO SEIZURES ACTIVITY NOTED. OPENING EYES TO VOICE. SINUS ANGEL 50S +2 EDEMA TO PERIPHERAL UPPER AND LOWER EXTREMITIES NOTED. LUNGS DIMINISHED BREATH SOUNDS. ABD SOFT NON DISTENDED. PEG TUBE IN PLACE WITH NUTREN PULMONARY RUNNING. F/C IN PLACE, CLEAR YELLOW WITH SEDIMENTS NOTED. SKIN NON INTACT, S/P I&D TO SACRAL/COCCYX AREA DUE TO DECUBITIS, BULKY DRESSING CDI. WOUND TO OCCIPITAL AREA DRESSING CDI. MULTIPLE BLISTERS TO BILATERAL FEET NOTED. NON BLANCHABLE REDNESS TO HEELS NOTED. SOFT FOAM BOOTS IN PLACE, ELEVATED WITH PILLOWS. CENTRAL LINE TO R IJ IN PLACE, PATENT. LEVOPHED RUNNING @ 8 MCG/MIN, IVF INFUSING. NO OTHER S/S OF ACUTE DISTRESS NOTED. WILL CONTINUE TO MONITOR.
--- NOTE | 2017-11-06 20:00 | NUR ---
BLOOD TRANSFUSION STARTED INFUSING TO RIJ. NO ACUTE DISTRESS NOTED WILL CONTINUE TO MONITOR.
--- NOTE | 2017-11-06 20:15 | NUR ---
NO S/S OF BLOOD TRANSFUSION REACTION NOTED. WILL CONTINUE TO OBSERVE.
[2017-11-06] MEDS: QUEtiapine FUMARATE 25 MG TAB PO SCH (20:31)
--- NOTE | 2017-11-06 21:00 | NUR ---
PT CALM, ASLEEP IN BED NO S/S OF ACUTE DISTRESS NOTED. WILL CONTINUE TO MONITOR.
--- NOTE | 2017-11-06 23:00 | NUR ---
1ST UNIT OF PRBC FINISHED. NO REACTION NOTED. WILL CONTINUE TO OBSERVE.
--- NOTE | 2017-11-06 23:30 | NUR ---
2nd UNIT PRBC TRANSFUSION INFUSING INTO RIJ NO S/S OF REACTION NOTED. WILL CONTINUE TO MONITOR.
[2017-11-07] VITALS (94 sets, daily range): BP systolic 71–172; BP diastolic 26–63
--- NOTE | 2017-11-07 01:00 | NUR ---
PT ASLEEP; EYES OPENING SPONTANEOUSLY. PT TOLERATING BLOOD TRANSFUSION. NO S/S OF ACUTE DISTRESS NOTED. WILL CONTINUE TO OBSERVE
--- NOTE | 2017-11-07 02:45 | NUR ---
BLOOD TRANSFUSION FINISHED; NO ACUTE REACTION NOTED. WILL CONTINUE TO OBSERVE.
--- NOTE | 2017-11-07 04:00 | NUR ---
AM CARE DONE. LINEN CHANGED. DRESSING TO SACRAL COCCYX AREA CHANGED, BULKY DRESSING WET TO DRY DRESSING APPLIED REINFORCED WITH ABD PADS AND PAPER TAPE PER MD ORDER. WILL CONTINUE TO MONITOR.
[2017-11-07] MEDS: PIPER/TAZO 2.25GM/D5W PREMIX 50 ML IV SCH ×3 (05:06→17:10)
[2017-11-07] MEDS: HYDROcodone/APAP 7.5/325 MG 1 TAB PO PRN ×2 (05:29→21:10)
--- NOTE | 2017-11-07 06:00 | NUR ---
DR. DEJESUS @ BEDSIDE
[2017-11-07] MEDS: VANCOMYCIN HCL 750 MG in DEXTROSE 5% 250 ML IV SCH (06:19)
[2017-11-07] MEDS ORDERED: FUROSEMIDE 20 MG/2 ML VIAL IVP ONE (06:30)
[2017-11-07] MEDS: INSULIN LISPRO SLIDING SCALE 100 UNITS/ML VIAL SUBQ PRN ×3 (06:48→17:05)
[2017-11-07] MEDS: BLOOD GLUCOSE MONITORING 1 DEV DEV FS SCH ×4 (06:49→21:10)
[2017-11-07 06:58] LABS: ANION GAP 1.7 (8-16); CARBON DIOXIDE 27.7 mmol/L (21-32); CHLORIDE 127 mmol/L (98-107); CREATININE 0.5 mg/dL (0.6-1.3); GLUCOSE 203 mg/dL (74-106); POTASSIUM 4.4 mmol/L (3.5-5.1); SODIUM SERUM 152 mmol/L (136-145); UREA NITROGEN, BLOOD 30 mg/dL (7-18)
[2017-11-07 07:11] LABS: MAGNESIUM 2.2 mg/dL (1.8-2.4); PHOSPHORUS 2.3 mg/dL (2.5-4.9)
--- NOTE | 2017-11-07 07:28 | NUR ---
RECEIVED PATIENT ON 7L OXYMIZER, 02 SAT 93%. WILL CONTINUE TO MONITOR.
--- NOTE | 2017-11-07 07:29 | NUR ---
RECEIVED REPORT FROM NOC RN FOR CONTINUITY OF CARE. PATIENT IS AWAKE, OPENS EYES, BUT UNABLE TO TRACK MOVEMENT. MOANS DURING REPOSITIONING. LUQ G TUBE IN PLACE TO NUTREN PULMONARY AT 45 ML/H, TOLERATING WELL. ON OXIMIZER AT 4LPM, 02 SAT 98%. FC IN PLACE, PATENT TO CLEAR YELLOW URINE IN MODERATE AMOUNT. SKIN WARM TO TOUCH WNL, TOENAILS ARE SLIGHTLY THICKENED, +3 PITTING EDEMA TO BLE, UNABLE TO PALPATE PEDAL PULSES DUE TO EDEMA. RIJ TRIPLE LUMEN PATENT AND INTACT. ON LEVOPHED DRIP AT 6 MCG. MULTIPLE PRESSURE ULCERS NOTED TO OCCIPITAL AREA, SACRALCOCCYX TO (B) BUTTOCKS TO PERIAREA, BILATERAL HEELS AND LATERAL BACK WITH DRESSING DRY AND INTACT. CALL LIGHT WITHIN REACH, BED AT LOWEST POSSIBLE POSITION. ALL SAFETY MEASURES IN PLACE. WILL CONTINUE TO MONITOR PATIENT.
--- NOTE | 2017-11-07 07:29 | NUR ---
REPORT GIVEN TO DAY NURSE FOR CONTINUITY OF CARE.
[2017-11-07 07:56] LABS: BASOPHILS % (AUTO) 0.1 % (0.0-2.0); EOSINOPHILS # (AUTO) 0.2 K/uL (0-0.4); EOSINOPHILS % (AUTO) 2.1 % (0.0-4.0); HEMATOCRIT 29.3 % (36-48); HEMOGLOBIN 9.4 g/dL (12.0-16.0); LYMPHOCYTES # (AUTO) 0.9 K/uL (2.5-16.5); LYMPHOCYTES % (AUTO) 9.2 % (20.5-51.1); MEAN CORPUSCULAR HEMOGLOBIN 30 pg (27-31); MEAN CORPUSCULAR HGB CONC 32 g/dL (33-37); MEAN CORPUSCULAR VOLUME 92.3 fL (80-94); MONOCYTES # (AUTO) 0.2 K/uL (0.8-1.0); MONOCYTES % (AUTO) 1.7 % (1.7-9.3); NEUTROPHILS # (AUTO) 8.6 K/uL (1.8-7.7); NEUTROPHILS % (AUTO) 86.9 % (42.2-75.2); PLATELET COUNT (AUTO) 85 K/uL (140-450); RED BLOOD CELL COUNT(AUTO) 3.17 MIL/uL (4.20-5.40); RED CELL DISTRIBUTION WIDTH 15.8 % (11.6-13.7); WHITE BLOOD COUNT (AUTO) 9.9 K/uL (4.8-10.8)
--- NOTE | 2017-11-07 08:00 | NUR ---
DR. STATON AND GROUP ROUNDING ON THE PATIENT. WILL FOLLOW UP WITH ORDERS.
--- NOTE | 2017-11-07 08:10 | NUR ---
NASOTRACHEAL SUCTIONED PATIENT THROUGH LEFT NARE. SUCTIONED LARGE AMOUNT OF THICK YELLOW SECRETIONS. VITAL SIGNS REMAINED WITHIN NORMAL LIMITS. WILL CONTINUE TO MONITOR.
[2017-11-07] MEDS: METOCLOPRAMIDE 10 MG/10 ML SYRP UDC GT SCH ×2 (08:31→21:10)
[2017-11-07] MEDS: FUROSEMIDE 20 MG/2 ML VIAL IVP SCH (08:32)
[2017-11-07] MEDS: LACTULOSE 20 GM/30 ML UDC PO SCH (08:32)
[2017-11-07] MEDS: ATORVASTATIN 20 MG TAB PO SCH (08:32)
[2017-11-07] MEDS: MEMANTINE 10 MG TAB GT SCH ×2 (08:33→21:10)
[2017-11-07] MEDS: ASCORBIC ACID 500 MG TAB PO SCH (08:33)
[2017-11-07] MEDS: GABAPENTIN 100 MG CAP GT SCH ×3 (08:33→16:59)
[2017-11-07] MEDS: INSULIN LANTUS 100 UNITS/ML 10 ML VIAL SUBQ SCH (08:38)
--- NOTE | 2017-11-07 09:15 | NUR ---
DR. BARCENAS IN, SEEN AND EXAMINED PATIENT. WILL FOLLOW UP WITH NEW ORDERS.
[2017-11-07] MEDS: POTASSIUM CHL 20 MEQ/ 1/2 NS 1,000 ML IV SCH ×4 (10:12→18:21)
[2017-11-07] MEDS ORDERED: hePARIN / DEXT 5% PREMIX 250 ML IV SCH (13:10)
[2017-11-07] MEDS ORDERED: HEPARIN PER PHARMACY MC PRN (13:10)
--- NOTE | 2017-11-07 13:32 | NUR ---
IVF RATE DECREASED TO 100ML/HR ORDERED.
[2017-11-07] MEDS: NOREPINEPHRINE 8 MG in DEXTROSE 5% 250 ML IV PRN (14:14)
[2017-11-07] MEDS ORDERED: DOBUTamine 250 MG/D5W PREMIX 250 ML IV SCH (14:20)
[2017-11-07] MEDS: SODIUM FERRIC GLUCONATE 125 MG in NACL 0.9% 100 ML IV SCH (15:00)
[2017-11-07 15:14] LABS: PROTHROMBIN TIME 10.9 secs (10.8-13.4)
[2017-11-07 15:32] LABS: ANION GAP 7.9 (8-16); CARBON DIOXIDE 28.2 mmol/L (21-32); CHLORIDE 126 mmol/L (98-107); CREATININE 0.5 mg/dL (0.6-1.3); GLUCOSE 278 mg/dL (74-106); POTASSIUM 4.1 mmol/L (3.5-5.1); SODIUM SERUM 158 mmol/L (136-145); UREA NITROGEN, BLOOD 30 mg/dL (7-18)
[2017-11-07] MEDS: DOBUTamine 500 MG/D5W PREMIX 250 ML IV PRN (16:33)
[2017-11-07] MEDS: hePARIN / DEXT 5% PREMIX 250 ML IV SCH (16:35)
[2017-11-07] MEDS ORDERED: SODIUM PHOS / POTASSIUM PHOS 1 PKT PDR GT ONE (18:30)
--- NOTE | 2017-11-07 19:15 | NUR ---
NOTIFIED ENGINEERING PROGRAMMER OF BERTA DIAZ NOT AVAILABLE IN [facility], UNABLE TO FIND ON FLOOR. AWARE, HOLD DIANE AM.
--- NOTE | 2017-11-07 19:15 | NUR ---
REPORT GIVEN TO NOC RN FOR CONTINUITY OF CARE. PATIENT IN STABLE CONDITION.
--- NOTE | 2017-11-07 19:20 | NUR ---
RECEIVED REPORT FROM DAY NURSE NO ACUTE DISTRESS NOTED. WILL CONTINUE TO OBSERVE.
--- NOTE | 2017-11-07 19:45 | NUR ---
PT AWAKE, + 3 BRISK PERRL, PT UNABLE TO FOLLOW COMMANDS. FLACCID UPPER AND LOWER EXTREMITIES. QUADRIPLEGIC. C COLLAR IN PLACE, C SPINE PRECAUTIONS. GCS 9. OPENING EYES SPONTANEOUSLY. SINUS RHYTHM 70S +2-3 EDEMA TO PERIPHERAL UPPER AND LOWER EXTREMITIES NOTED. LUNGS DIMINISHED BREATH SOUNDS. ABD SOFT NON DISTENDED. PEG TUBE IN PLACE WITH NUTREN PULMONARY RUNNING. FECAL COLLECTION BAG IN PLACE. F/C IN PLACE, CLEAR YELLOW WITH SEDIMENTS NOTED. SKIN NON INTACT, S/P I&D TO SACRAL/COCCYX AREA DUE TO DECUBITIS, BULKY DRESSING CDI. WOUND TO OCCIPITAL AREA DRESSING CDI; REDNESS AROUND C COLLAR NOTED. MULTIPLE BLISTERS TO BILATERAL FEET NOTED. NON BLANCHABLE REDNESS TO HEELS NOTED. SOFT FOAM BOOTS IN PLACE, ELEVATED WITH PILLOWS. CENTRAL LINE TO R IJ IN PLACE, PATENT. DOBUTAMINE RUNNING @ 4 MCG/KG/MIN, HEPARIN DRIP PER PROTOCOL @ 870 UNITS/HR, IVF INFUSING. NO OTHER S/S OF ACUTE DISTRESS NOTED. WILL CONTINUE TO MONITOR.
[2017-11-07] MEDS: QUEtiapine FUMARATE 25 MG TAB PO SCH (21:10)
--- NOTE | 2017-11-07 22:00 | NUR ---
PT AWAKE, TURNED AND REPOSITIONED, NO S/S OF DISTRESS NOTED WILL CONTINUE TO MONITOR.
--- NOTE | 2017-11-07 22:35 | NUR ---
LAB @ BEDSIDE FOR PTT
[2017-11-07 23:41] LABS: APPEARANCE,URINE CLEAR (CLEAR); BILIRUBIN,URINE NEGATIVE (NEGATIVE); BLOOD, URINE 1+ (NEGATIVE); COLOR,URINE YELLOW (YELLOW); LEUKOCYTE ESTERASE ,URINE NEGATIVE (NEGATIVE); NITRITE, URINE NEGATIVE (NEGATIVE); PH,URINE 5.5 (5.0-9.0); UGLUCOSE NEGATIVE (NEGATIVE)
[2017-11-07 23:52] LABS: BARBITURATE, URINE NEG. ng/ml (NEG <=200); BENZODIAZEPINE, URINE POS. ng/mL (NEG <=200); CANNABINOID, URINE NEG. ng/mL (NEG <=50); COCAINE, URINE NEG. ng/mL (NEG <=300); OPIATE, URINE POS. ng/mL (NEG <=2000); PHENCYCLIDINE SCREEN,URINE NEG. ng/mL (NEG <=25)
[2017-11-08] VITALS (94 sets, daily range): BP systolic 69–138; BP diastolic 21–88
--- NOTE | 2017-11-08 | NUR ---
PT TURNED REPOSITIONED FOR COMFORT. NO S/S OF ACUTE DISTRESS NOTED. WILL CONTINUE TO OBSERVE
--- NOTE | 2017-11-08 00:07 | NUR ---
PER HEPARIN PROTOCOL HEPARIN BOLUS 2030 UNITS GIVEN, INCREASED RATE TO 990 UNITS/HR. NO S/S OF ACUTE DISTRESS NOTED. SEE EMAR FOR DETAILS. WILL CONTINUE TO MONITOR.
[2017-11-08] MEDS: VANCOMYCIN HCL 750 MG in DEXTROSE 5% 250 ML IV SCH (00:10)
[2017-11-08 00:19] LABS: RBC,URINE 3-10 (FEW) /HPF (0-5); WBC,URINE 0-5 (RARE) /HPF (0-5)
[2017-11-08 00:20] LABS: HYALINE CASTS, URINE 0-10 /LPF (None Seen)
--- NOTE | 2017-11-08 04:00 | NUR ---
PT ASLEEP; SITTING UP IN BED AROUSABLE; MOANING @ TIMES. NO ACUTE S/S OF DISTRESS NOTED. WILL CONTINUE TO OBSERVE
[2017-11-08] MEDS: HYDROcodone/APAP 7.5/325 MG 1 TAB PO PRN ×2 (04:37→22:49)
[2017-11-08] MEDS: POTASSIUM CHL 20 MEQ/ 1/2 NS 1,000 ML IV SCH ×2 (04:37→14:36)
--- NOTE | 2017-11-08 06:00 | NUR ---
INCREASED HEPARIN DRIP TO 1110 UNITS/HR. BOLUS GIVEN PER PROTOCOL. NO BLEEDING NOTED. WILL CONTINUE TO OBSERVE.
[2017-11-08] MEDS: PIPER/TAZO 2.25GM/D5W PREMIX 50 ML IV SCH ×4 (06:30→18:17)
[2017-11-08] MEDS: BLOOD GLUCOSE MONITORING 1 DEV DEV FS SCH ×4 (06:43→21:00)
--- NOTE | 2017-11-08 07:20 | NUR ---
RECIEVED REPORT FROM [facility] NURSE. PATIENT NONVERBAL UNABLE TO FOLLOW COMMANDS OR VERBALIZE NEEDS. AFEBRILE. QUADRIPELIGIC C4-C5 FX. LUNG SOUNDS DIMINISHED ON O2 4LPM VIA OXYMIZER. LUNG SOUNDS DIMINISHED. BRADYCARDIAC. RIGHT IJ CENTRAL LINE PATENT AND INTACT. RIGHT ARM 24G IV SITE PATENT, INTACT. DRESSING CDI. ABD SOFT, NONDISTENDED, BS ACTIVE X 4 QUADRANTS. GT LUQ PATENT. BLADDER NONDISTENDED. FC PATENT CLEAR YELLOW, NO FOUL ODOR. MULTIPLE WOUNDS NOTED SACRALCOCCYX STAGE IV DRESSING DRY INTACT. OCCIPITAL LOBE DRESSING DRY, INTACT. BILATERAL HEELS STEFF. BACK DRESSING CLEAN, DRY INTACT, BLE 3+ EDEMA. CERVICAL COLLAR IN PLACE. BILATERAL SOFT HEEL RAISER BOOTS IN PLACE. CONTACT ISOLATION PRECAUTIONS. BED IN LOWEST POSITION. SR UP X 4. CALL LIGHT WITHIN REACH WILL CONTINUE TO MONITOR.
--- NOTE | 2017-11-08 07:30 | NUR ---
REPORT GIVEN TO DAY NURSE FOR CONTINUITY OF CARE.
[2017-11-08 08:40] LABS: BASOPHILS % (AUTO) 0.2 % (0.0-2.0); EOSINOPHILS # (AUTO) 0.2 K/uL (0-0.4); EOSINOPHILS % (AUTO) 2.2 % (0.0-4.0); HEMATOCRIT 25.1 % (36-48); LYMPHOCYTES # (AUTO) 0.9 K/uL (2.5-16.5); LYMPHOCYTES % (AUTO) 10.4 % (20.5-51.1); MEAN CORPUSCULAR HEMOGLOBIN 29 pg (27-31); MEAN CORPUSCULAR HGB CONC 32 g/dL (33-37); MONOCYTES # (AUTO) 0.2 K/uL (0.8-1.0); MONOCYTES % (AUTO) 2.9 % (1.7-9.3); NEUTROPHILS # (AUTO) 6.9 K/uL (1.8-7.7); NEUTROPHILS % (AUTO) 84.3 % (42.2-75.2); PLATELET COUNT (AUTO) 64 K/uL (140-450); RED BLOOD CELL COUNT(AUTO) 2.73 MIL/uL (4.20-5.40); RED CELL DISTRIBUTION WIDTH 15.9 % (11.6-13.7); WHITE BLOOD COUNT (AUTO) 8.2 K/uL (4.8-10.8)
[2017-11-08] MEDS: GABAPENTIN 100 MG CAP GT SCH ×3 (08:46→16:08)
[2017-11-08] MEDS: LACTULOSE 20 GM/30 ML UDC PO SCH (08:47)
[2017-11-08] MEDS: ATORVASTATIN 20 MG TAB PO SCH (08:47)
[2017-11-08] MEDS: MEMANTINE 10 MG TAB GT SCH ×2 (08:47→21:00)
[2017-11-08] MEDS: ASCORBIC ACID 500 MG TAB PO SCH (08:47)
[2017-11-08] MEDS: METOCLOPRAMIDE 10 MG/10 ML SYRP UDC GT SCH ×2 (08:47→21:00)
[2017-11-08] MEDS: INSULIN LANTUS 100 UNITS/ML 10 ML VIAL SUBQ SCH (08:58)
[2017-11-08] MEDS ORDERED: SODIUM FERRIC GLUCONATE 125 MG in NACL 0.9% 100 ML IV SCH (09:00)
--- NOTE | 2017-11-08 10:22 | NUR ---
PATIENT HAS BEEN SCREENED AND CATEGORIZED HIGH NUTRITION RISK. PATIENT WILL BE SEEN WITHIN 1-2 DAYS OF ADMISSION. 11/08/[address] Addendum: 11/08/17 at [address] DISREGARD NOTE ABOVE ADELINA GIRON [address]
--- NOTE | 2017-11-08 13:18 | NUR ---
SPOKE TO DR. DRAKE AND TO CLARIFY TO APPLY WOUND VAC WITH SILVER FOAM OVER THE INFECTED WOUND PER MANUFACTURAL GUIDELINES. WILL APPLY WOUND VAC WHEN AVAILABLE. [facility] CONTACTED [phone] CONFIRMATION # [id number]
--- NOTE | 2017-11-08 13:40 | NUR ---
RESIDENT PHYSICIAN, DR. HERRERA MADE AWARE OF RD RECOMMENDATIONS TO CHANGE FEEDING TO DIABETISOURCE. MADE AWARE WELL OF THE PTT AND PLATELET LEVELS. WILL FOLLOW UP WITH ORDERS.
[2017-11-08 14:57] LABS: ANION GAP 8.9 (8-16); CARBON DIOXIDE 26.9 mmol/L (21-32); CHLORIDE 120 mmol/L (98-107); CREATININE 0.4 mg/dL (0.6-1.3); GLUCOSE 117 mg/dL (74-106); POTASSIUM 3.8 mmol/L (3.5-5.1); SODIUM SERUM 152 mmol/L (136-145); UREA NITROGEN, BLOOD 22 mg/dL (7-18)
--- NOTE | 2017-11-08 15:09 | NUR ---
11/08/17 RD FOLLOW UP COMPLETED PLEASE REFER TO NUTRITION ASSESSMENT UNDER CARE ACTIVITY FOR ESTIMATED NUTRITIONAL NEEDS. 1.RECOMMEND CHANGING FORMULA TO DIABETISOURCE 1.2 AT A GOAL RATE OF 55 ML/HR. INITIATE AT 10-20 ML/HR AND INCREASE Q6H 10 ML. -THIS WILL PROVIDE 1320 ML, 1584 KCAL AND 80 GM PROTEIN, MEETING 100% OF PATIENTS ESTIMATED NEEDS. 2. RECOMMEND ADDING MULTIVITAMIN AND INCREASING VITAMIN C DOSE TO 2000MG/DAY 3. RD TO FOLLOW-UP 2-3 DAYS, HIGH RISK MARI GIRON RD
[2017-11-08] MEDS: hePARIN / DEXT 5% PREMIX 250 ML IV SCH (15:11)
[2017-11-08] MEDS: DOBUTamine 500 MG/D5W PREMIX 250 ML IV PRN (15:12)
--- NOTE | 2017-11-08 15:35 | NUR ---
WOUND CARE EVALUATION NOTES: REASON FOR EVALUATION: MULTIPLE PRESSURE INJURIES SKIN ASSESSMENT DONE ON THIS 89 Y/O MALE PATIENT ADMITTED FROM [facility] TO [facility], WITH INITIAL DIAGNOSIS OF SOB. PAST MEDICAL HISTORY INCLUDE COPD, CHF, PULMONARY FIBROSIS. ALL ABOVE INFORMATION WAS OBTAINED FROM THE ADMISSION H&P. LABS ARE WBC 10.6, H/H 11.9/36.3, GLUCOSE 119, AND ALBUMIN 2.2. PATIENT IS AWAKE, WITH NECK COLLAR IN PLACE. SKIN WARM TO TOUCH WNL, WILCOX CATHETER PATENT AND INTACT WITH MODERATE AMOUNT CLEAR URINE OUTPUT. PRIMARY RN INSERT RECTAL TUBE DURING ASSESSMENT. BLE NO HAIR GROWTH +1 EDEMA, DORSAL PEDAL PULSES PRESENT, NEEDS ASSISTANCE IN TURNING. PLAN OF CARE AND PRESSURE PREVENTIVE MEASURES DISCUSSED WITH PT AND PRIMARY NURSE. FURTHER SKIN BREAKS MAY NOTICE DUE TO COMORBIDITIES. INTEGUMENTARY: -OCCIPITAL STAGE 4 LEAD RAMP AGENT ASSOCIATE PRESSURE INJURY, SKULL BONE 4.5X5X0.2 CM WITH INTERSPACE/UNDERMINING BETWEEN SCALP AND SKULL BONE AROUND WOUND EDGE. SMALL AMOUNT OF SANGUINOUS DRAINAGE TO WOUND EDGE, MILD ODOR. -R/L EARS STAGE 1 LEAD RAMP AGENT ASSOCIATE PRESSURE INJURIES -OLD HEALED SCAR TO NECK -LEFT UPPER CHEST DRY ABRASION -BUE SKIN DRYNESS, EDEMA WITH MULTIPLE ECCHYMOSIS -LEFT SCAPULA PRESSURE INJURIES 1.5X1X0.1CM, WOUND BEDS ARE PINK AND MOIST, NO ODOR, OPTIFORM IN PLACE. - LEFT SCAPULA TOWARD SHOULDER DIRECTION 1 DRY ABRASION 0.3X1.5CM -RIGHT SCAPULA OBSERVED 2 PRESSURE INJURIES STAGE 2, LARGEST 3X2.5 X0.1 CM AND SMALLEST 2.1.5X0.1 CM, WOUND BEDS ARE PINK AND MOIST, NO ODOR, OPTIFORM IN PLACE. -R/LGROIND AND PERINEUM IAD, MOIST AND REDNESS -SACRALCOCCYX EXTENDED TO PERIANAL PRESSURE INJURY STAGE 4 WITH S/P DEBRIDEMENT, [id number], WOUND BED IS DIRTY AND INFECTED WITH FECES, BONE AND MUSCLE OBSERVED, IRREGULAR WOUND SHAPE, [place]-WOUND SKIN REDNESS WITH WOUND EDGE BLACK TISSUE OBSERVED BETWEEN 12-1 O'CLOCK AND BLACK/ YELLOW MUSCLE TISSUE BETWEEN 6 O'CLOCK TO 9 O'CLOCK, MODERATE AMOUNT OF SEROSANGUINEOUS DRAINAGE, MILD ODOR. -LEFT LATERAL LEG BLOOD FILLED BLISTER 3X0.5CM -LEFFT POSTERIOR ABOVE ANKLE DTI 2X3CM -LEFT 5TH T0E, LATERAL SIDE DTI 0.5X0.5CM, LEFT LATERAL SIDE HALLUX DTI 1.5X1CM -RIGHT 5TH T0E, LATERAL SIDE DTI 0.3X0.3CM, RIGHT LATERAL SIDE HALLUX DTI 1X1CM -BILATERAL HEELS BLANCHABLE REDNESS, THIN CALLUS TO RIGHT HEEL. RECOMMENDATIONS: -CHECK NECK COLLAR PLACEMENT QSHIFT AND RELEASE Q2H X 5 MINUTES AND REAPPLY -PENDING DEBRIDEMENT TO SACRALCOCCYX WOUND -WOUND VAC THERAPY TO SACRALCOCCYX WITH SILVER GRANUFOAM. SET WOUND VAC. AT 125 mmHg, CHANGE DRESSING Q72HR AND PRN BY FOLLOWING MANUFACTURE GUIDELINES. PLEASE SACRALCOCCYX BONE WITH ADAPTIC DRESSING FIRST THEN APPLY FORM DRESSING. (STAR VAC. THERAPY WHEN AVAILABLE) -CLEANSE OCCIPITAL WOUND WITH NS, APPLY HYDROGEL WITH ADAPTIC DRESSING COVER WITH DRY DRESSING, PAD WITH ABD QD AND PRN IF SOILING -CLEANSE WITH NS. PAT DRY AND APPLY OPTIFORM DRESSING CHANGE Q7 DAYS AND PRN IF SOILING. AREAS INCLUDING: LEFT SCAPULA PRESSURE INJURIES AND RIGHT SCAPULA OBSERVED 2 PRESSURE INJURIES -APPLY HYDRAGUARD TO R/L EARS, R/L GROIND AND PERINEUM BIDWC AND PRN IF SOILING, STEFF -APPLY VERSATEL DRESSING TO LEFT LATERAL LEG BLOOD FILLED BLISTER CHANGE Q7 DAYS AND PRN IF SOILING -APPLY FORM DRESSING TO MULTIPLE DTI CHANGE Q7 DAYS AND PRN IF SOILING. AREAS INCLUDING: LEFFT POSTERIOR ABOVE ANKLE, LEFT 5TH T0E, LATERAL SIDE, LEFT (LATERAL SIDE) HALLUX, RIGHT 5TH T0E, LATERAL SIDE AND RIGHT LATERAL SIDE HALLUX -HEEL RAISER TO BILATERAL HEELS AT ALL TIMES -TURN AND REPOSITION PATIENT Q2H TO LEFT AND RIGHT SIDE ONLY TO OFFLOAD SACRALCOCCYX, AND THORACIC AREAS -ASSESS AND MONITOR SKIN CONDITION DURING POSITION CHANGE, PLEASE PAY ATTENTION TO SACRALCOCCYX -PRESSURE REDISTRIBUTION SURFACE THERAPY -KEEP SKIN CLEAN AND DRY AT ALL TIMES. RECOMMENDATIONS DISCUSSED WITH PRIMARY RN WILL FOLLOW UP PATIENT Q 7 -10 DAYS AND PRN. PLEASE CONTACT WOUND CARE NURSE FOR ANY QUESTION OR CHANGES IN WOUND CONDITION Addendum: 11/08/17 at 1539 by Usman Anthony RN (Grace) SPOKE TO DR. HERRERA AND NOTIFY ALL RECOMMENDATIONS Addendum: 11/08/17 at 1611 by Usman Anthony RN (Grace) EDIT: -LEFT SCAPULA PRESSURE INJURIES STAGE 2, 1.5X1X0.1CM, WOUND BEDS ARE PINK AND MOIST, NO ODOR, OPTIFORM IN PLACE. CLARIFICATION ORDER TO DC'D SILVER FORM TO BLACK FORM, SILVER FOAM NOT AVAILABLE.
[2017-11-08] MEDS ORDERED: COLISTIMETHATE SODIUM 150 MG in NACL 0.9% 100 ML IV SCH (16:00)
--- NOTE | 2017-11-08 16:10 | NUR ---
FOR WOUND VAC APPLICATION. WOUND IS NOT WOUND VAC APPROPRIATE 50% NECROTIC TISSUE NOTED. WOUND NURSE MADE AWARE.
--- NOTE | 2017-11-08 16:45 | NUR ---
SPOKE TO DAUGHTER IRIS Victoria ABOUT WOUND CARE PLANS, ALSO, EXPLAINED ALL COMOBIDITIES RELATED FURTHER SKIN BREAKS AND DELAY WOUND HEALING, DAUGHTER VERBALIZES UNDERSTOOD. ALL QUESTIONS ANSWERED.
--- NOTE | 2017-11-08 16:57 | NUR ---
SATURATION 100% ON SUPPLEMENTAL OXYGEN AT 6 LPM VIA OXYMIZER TITRATED FIO2 4 LPM Addendum: 11/08/17 at 1703 by Jovanny Raya RT BARKING MACHINE FEEDER TO INFORM RN OF OXYGEN TITRATION
--- NOTE | 2017-11-08 17:07 | NUR ---
NOTIFIED BRIAN/RN OF OXYGEN TITRATION NOTED AT 1657 INCLUSION PARAEDUCATOR TO MONITOR
--- NOTE | 2017-11-08 17:45 | NUR ---
DR. DRAKE MADE AWARE THAT WOUND VAC WAS NOT APPLIED DUE TO 50% NECROTIC TISSUES PRESENT ON WOUND BED. HE STATED THAT PATIENT IS NOT CLINICALLY STABLE TO BE DEBRIDED AT THIS TIME. WOUND CARE NURSE MADE AWARE.
--- NOTE | 2017-11-08 18:09 | NUR ---
RESIDENT PHYSICIAN DR. PEACE MADE AWARE OF PATIENT'S PTT LEVEL OF 36.5 AND PLATELET OF 64. WILL SEE PATIENT.
--- NOTE | 2017-11-08 18:55 | NUR ---
HEPARIN DRIP STOPPED AT THIS TIME PER DR PEACE'S ORDER.
--- NOTE | 2017-11-08 19:18 | NUR ---
REPORT GIVEN TO NOC RN FOR CONTINUITY OF CARE. PATIENT IN STABLE CONDITION.
--- NOTE | 2017-11-08 19:20 | NUR ---
RECEIVED REPORT FROM DAY NURSE, NO ACUTE DISTRESS. WILL CONTINUE TO MONITOR.
--- NOTE | 2017-11-08 19:55 | NUR ---
PT AWAKE, + 3 BRISK PERRL, PT UNABLE TO FOLLOW COMMANDS. FLACCID UPPER AND LOWER EXTREMITIES. QUADRIPLEGIC. C COLLAR IN PLACE, C SPINE PRECAUTIONS. GCS 9. OPENING EYES SPONTANEOUSLY. SINUS RHYTHM 70S +2-3 EDEMA TO PERIPHERAL UPPER AND LOWER EXTREMITIES NOTED. LUNGS DIMINISHED BREATH SOUNDS. SUPPLEMENTAL O2 VIA OXIMIZER. ABD SOFT NON DISTENDED. PEG TUBE IN PLACE WITH NUTREN PULMONARY RUNNING. RECTAL TUBE IN PLACE. F/C IN PLACE, CLEAR MITUL WITH SEDIMENTS NOTED. SKIN NON INTACT, S/P I&D TO SACRAL/COCCYX AREA DUE TO DECUBITIS, BULKY DRESSING CDI. WOUND TO OCCIPITAL AREA DRESSING CDI; REDNESS AROUND C COLLAR NOTED. MULTIPLE BLISTERS TO BILATERAL FEET NOTED. NON BLANCHABLE REDNESS TO HEELS NOTED. SOFT FOAM BOOTS IN PLACE, ELEVATED WITH PILLOWS. CENTRAL LINE TO R IJ IN PLACE, PATENT. DOBUTAMINE RUNNING @ 6 MCG/KG/MIN, HEPARIN DRIP ON HOLD PER MD ORDERS, IVF INFUSING. NO BLEEDING NOTED. NO OTHER S/S OF ACUTE DISTRESS NOTED. WILL CONTINUE TO MONITOR.
[2017-11-08] MEDS: QUEtiapine FUMARATE 25 MG TAB PO SCH (21:00)
--- NOTE | 2017-11-08 21:45 | NUR ---
BLOOD SUGAR CHECKED 41, 1 AMP D50 GIVEN; BLOOD SUGAR RECHECKED NOW 165. AWARE. WILL CONTINUE TO OBSERVE
--- NOTE | 2017-11-08 22:10 | NUR ---
PT AWAKE; EYES OPEN. TURNED AND REPOSITIONED. WILL CONTINUE TO OBSERVE
[2017-11-08] MEDS: DEXTROSE 50% 50 ML SYR IVP PRN (22:48)
[2017-11-09] VITALS (96 sets, daily range): BP systolic 66–138; BP diastolic 31–67
--- NOTE | 2017-11-09 00:05 | NUR ---
PT TURNED AND REPOSITIONED. PER DR PEACE NO WOUND VAC @ THIS TIME, UNTIL PT STABLE FOR DEBRIDEMENT FROM DR. DRAKE. CONTINUE DRESSING CHANGES PRN AND DAILY WILL CONTINUE TO OBSERVE
[2017-11-09] MEDS: PIPER/TAZO 2.25GM/D5W PREMIX 50 ML IV SCH ×5 (01:06→23:39)
[2017-11-09] MEDS: POTASSIUM CHL 20 MEQ/ 1/2 NS 1,000 ML IV SCH ×3 (01:06→22:38)
[2017-11-09] MEDS ORDERED: HYDRAGUARD CREAM TP ONE (01:38)
--- NOTE | 2017-11-09 01:45 | NUR ---
WOUND CARE ASSESSMENT DONE; PT PRE MEDICATED WITH PRN PAIN MEDICATION. SACRAL COCCYX DRESSING SATURATED; SOILED. DRESSING CHANGED, BULKY DRESSING APPLIED PER DR. DRAKE ORDER. NO OTHER ACUTE S/S OF DISTRESS NOTED. WILL CONTINUE TO MONITOR.
[2017-11-09] MEDS: MORPHINE SULFATE 4 MG/ML SYR IVP PRN (03:55)
--- NOTE | 2017-11-09 04:00 | NUR ---
AM CARE DONE. PT TURNED @ REPOSITIONED, NO S/S OF ACUTE DISTRESS NOTED. WILL CONTINUE TO OBSERVE.
[2017-11-09 05:12] LABS: BASOPHILS % (AUTO) 0.2 % (0.0-2.0); EOSINOPHILS # (AUTO) 0.2 K/uL (0-0.4); EOSINOPHILS % (AUTO) 2.9 % (0.0-4.0); HEMATOCRIT 23.7 % (36-48); HEMOGLOBIN 7.5 g/dL (12.0-16.0); LYMPHOCYTES # (AUTO) 0.8 K/uL (2.5-16.5); LYMPHOCYTES % (AUTO) 13.6 % (20.5-51.1); MEAN CORPUSCULAR HEMOGLOBIN 29 pg (27-31); MEAN CORPUSCULAR HGB CONC 32 g/dL (33-37); MEAN CORPUSCULAR VOLUME 92.2 fL (80-94); MONOCYTES # (AUTO) 0.2 K/uL (0.8-1.0); MONOCYTES % (AUTO) 3.2 % (1.7-9.3); NEUTROPHILS # (AUTO) 4.8 K/uL (1.8-7.7); NEUTROPHILS % (AUTO) 80.1 % (42.2-75.2); PLATELET COUNT (AUTO) 66 K/uL (140-450); RED BLOOD CELL COUNT(AUTO) 2.57 MIL/uL (4.20-5.40); RED CELL DISTRIBUTION WIDTH 15.8 % (11.6-13.7)
[2017-11-09 05:55] LABS: ANION GAP 9.4 (8-16); CARBON DIOXIDE 28.5 mmol/L (21-32); CHLORIDE 118 mmol/L (98-107); CREATININE 0.4 mg/dL (0.6-1.3); GLUCOSE 117 mg/dL (74-106); POTASSIUM 3.9 mmol/L (3.5-5.1); SODIUM SERUM 152 mmol/L (136-145); UREA NITROGEN, BLOOD 16 mg/dL (7-18)
[2017-11-09 06:02] LABS: MAGNESIUM 2.1 mg/dL (1.8-2.4)
[2017-11-09] MEDS: BLOOD GLUCOSE MONITORING 1 DEV DEV FS SCH ×4 (06:10→21:30)
[2017-11-09 07:15] LABS: FREE T4 (FREE THYROXINE) 0.94 ng/dL (0.76-1.46); THYROID STIMULATING HORMONE 5.01 uIU/mL (0.34-3.74)
--- NOTE | 2017-11-09 07:30 | NUR ---
REPORT GIVEN TO DAY NURSE FOR CONTINUITY OF CARE
--- NOTE | 2017-11-09 07:30 | NUR ---
RECEIVED REPORT FROM PM NURSE, PT OPENS EYES, UNABLE TO FOLLOW COMMANDS. BEDSIDE MONITOR SHOWS SR, PT ON OXYMIZER 3 L/MIN, NO S/S OF RESPIRATORY DISTRESS NOTED.LUNG SOUND DIMINISHED. C COLLAR IN PLACE, ALL EXTREMITIES ARE FLACCID. QUADRIPLEGIC, G-TUBE IN PLACE, PT TOLERATED WELL. RECTAL BAG AND F/C IN PLACE, PT HAS CENTRAL LINE TO [facility] RUNNING DOBUTAMINE 4 MCG/ KG/MIN AND KCL 20 MEQ 1/2 NS AT 100 MLS/HR, SITE INTACT AND PATENT. SKIN NON INTACT ( SEE WOUND ASSESSMENT). HEEL PROTECTOR IN PLACE, HOB ELEVATED 30 DEGREES WITH LOW BED POSITION, WILL CONTINUE TO MONITOR.
[2017-11-09] MEDS: MULTIVITAMIN/MINERALS 1 TAB PO SCH (08:10)
[2017-11-09] MEDS: METOCLOPRAMIDE 10 MG/10 ML SYRP UDC GT SCH ×2 (08:10→20:03)
[2017-11-09] MEDS: ATORVASTATIN 20 MG TAB PO SCH (08:10)
[2017-11-09] MEDS: LACTULOSE 20 GM/30 ML UDC PO SCH (08:10)
[2017-11-09] MEDS: ASCORBIC ACID 500 MG TAB PO SCH (08:10)
[2017-11-09] MEDS: MEMANTINE 10 MG TAB GT SCH ×2 (08:11→20:03)
[2017-11-09] MEDS: GABAPENTIN 100 MG CAP GT SCH ×3 (08:11→17:23)
[2017-11-09] MEDS: COLISTIMETHATE SODIUM 75 MG in NACL 0.9% 100 ML IV SCH ×2 (08:11→20:04)
[2017-11-09] MEDS: INSULIN LANTUS 100 UNITS/ML 10 ML VIAL SUBQ SCH (09:00)
--- NOTE | 2017-11-09 09:12 | NUR ---
NOTIFIED DR. HERRERA PT BS 69, PER DR. HERRERA, HOLD LANTUS 36 UNITS, WILL CARRY OUT.
--- NOTE | 2017-11-09 09:43 | NUR ---
INCREASED DOBUTAMINE TO 4 MCG/KG/MIN DUE TO PT HAD CONSECUTIVE BP MAP LESS THAN 65.
--- NOTE | 2017-11-09 12:52 | NUR ---
IN TO SEE PT, UPDATED PT'S CONDITION, PER DR. BEAN, PLATELETS WAS LOW ON 11/07/2017 BEFORE HEPARIN DRIP, SO START HEPARIN DRIP AND HOLD IT IF PLATELETS LESS THAN 50.000, DO NOT GIVE HEPARIN BOLUS. PHARMACIST MAURA CURRIE.
[2017-11-09] MEDS: hePARIN / DEXT 5% PREMIX 250 ML IV SCH (13:09)
[2017-11-09 15:02] LABS: ANION GAP 5.5 (8-16); CARBON DIOXIDE 29.7 mmol/L (21-32); CHLORIDE 116 mmol/L (98-107); CREATININE 0.4 mg/dL (0.6-1.3); GLUCOSE 131 mg/dL (74-106); POTASSIUM 4.2 mmol/L (3.5-5.1); SODIUM SERUM 147 mmol/L (136-145); UREA NITROGEN, BLOOD 15 mg/dL (7-18)
--- NOTE | 2017-11-09 15:08 | NUR ---
SITUATION NO CHANGE, NO S/S OF RESPIRATORY DISTRESS NOTED.WILL CONTINUE TO MONITOR.
--- NOTE | 2017-11-09 17:40 | NUR ---
TUBE FEEDING RESIDUAL CHECKED, 250 ML NOTICED AND RETURNED IT BACK, HOLD TUBE FEEDING .
--- NOTE | 2017-11-09 19:05 | NUR ---
REPORT GIVEN TO PM NURSE.
--- NOTE | 2017-11-09 19:20 | NUR ---
RECEIVED REPORT FROM MORNING NURSE, PT OPENS EYES BUT NOT TRACKING, UNABLE TO FOLLOW COMMANDS. BEDSIDE MONITOR SHOWS SR WITH BBB, PT ON OXYMIZER 3 L/MIN, NO S/S OF RESPIRATORY DISTRESS NOTED.BILATERAL LUNG SOUND DIMINISHED. PATIENT HAS CENTRAL LINE TO RIGHT IJ TRIPLE LUMENS, INTACT AND PATENT. RUNNING DOBUTAMINE 4MCG/KG/MIN, KCL 20MEQ IN 1/2NS AT 100ML/HR AND HEPARIN DRIP 1110 UNIT/HR. C COLLAR IN PLACE FOR REPAIRED FX C4/C5, ALL EXTREMITIES ARE FLACCID, QUADRIPLEGIC. HOLDING NUTREN PULMO G-TUBE FEEDING, RESIDUAL CHECKED OVER 200 NOTED. PLACEMENT CHECKED. RECTAL BAG AND F/C IN PLACE. SKIN NON INTACT ( SEE WOUND ASSESSMENT). HEEL PROTECTOR IN PLACE, HOB ELEVATED 30 DEGREES WITH LOW BED POSITION, WILL CONTINUE TO MONITOR.
[2017-11-09] MEDS: QUEtiapine FUMARATE 25 MG TAB PO SCH (20:04)
[2017-11-09] MEDS: DOBUTamine 500 MG/D5W PREMIX 250 ML IV PRN (20:20)
--- NOTE | 2017-11-09 20:50 | NUR ---
ADMINISTERED SCHEDULED MEDICATIONS ORDERED, PATIENT TOLERATED WELL. G TUBE FEEDING IS STILL ON HOLD, RESIDUAL OVER 200 NOTED. NO ACUTE RESPIRATORY DISTRESS NOTED. WILL CONTINUE TO MONITOR.
--- NOTE | 2017-11-09 21:30 | NUR ---
BS CHECKED 160 NOTED. ADMINISTERED INSULIN 2 UNIT. SR WITH BBB ON THE MONITOR. WILL CONTINUE TO MONITOR.
[2017-11-09] MEDS: INSULIN LISPRO SLIDING SCALE 100 UNITS/ML VIAL SUBQ PRN (21:33)
--- NOTE | 2017-11-09 22:00 | NUR ---
CHECKED G TUBE FEEDING RESIDUAL 180 NOTED. STILL HOLDING THE FEEDING. WILL CONTINUE TO MONITOR.
[2017-11-10] VITALS (95 sets, daily range): BP systolic 84–136; BP diastolic 33–82
--- NOTE | 2017-11-10 | NUR ---
STARTED NPO AFTER MIDNIGHT, G TUBE FEEDING IS HOLDING, RESIDUAL CHECKED 120ML NOTED
--- NOTE | 2017-11-10 02:00 | NUR ---
PATIENT OPENS EYES SPONTANEOUSLY BUT NOT TRACKING, UNABLE TO FOLLOW SIMPLE COMMANDS. NO ACUTE RESPIRATORY DISTRESS NOTED. MAP ABOVE 60 NOTED. ON DOBUTAMINE DRIP. SR WITH BBB ON THE MONITOR. WILL CONTINUE TO MONITOR.
[2017-11-10] MEDS: MORPHINE SULFATE 4 MG/ML SYR IVP PRN (04:13)
--- NOTE | 2017-11-10 04:15 | NUR ---
ADMINISTERED PRN MORPHINE ORDERED. FLACC 6 NOTED. SR WITH BBB ON THE MONITOR. WILL CONTINUE TO MONITOR.
[2017-11-10] MEDS: PIPER/TAZO 2.25GM/D5W PREMIX 50 ML IV SCH ×3 (05:21→18:30)
[2017-11-10 05:55] LABS: HEMOGLOBIN 7.1 g/dL (12.0-16.0); RED BLOOD CELL COUNT(AUTO) 2.42 MIL/uL (4.20-5.40); WHITE BLOOD COUNT (AUTO) 4.3 K/uL (4.8-10.8)
[2017-11-10 05:56] LABS: BASOPHILS % (AUTO) 0.3 % (0.0-2.0); EOSINOPHILS # (AUTO) 0.1 K/uL (0-0.4); EOSINOPHILS % (AUTO) 2.1 % (0.0-4.0); HEMATOCRIT 22.2 % (36-48); LYMPHOCYTES % (AUTO) 22.9 % (20.5-51.1); MEAN CORPUSCULAR HEMOGLOBIN 29 pg (27-31); MEAN CORPUSCULAR HGB CONC 32 g/dL (33-37); MEAN CORPUSCULAR VOLUME 91.5 fL (80-94); MONOCYTES # (AUTO) 0.2 K/uL (0.8-1.0); MONOCYTES % (AUTO) 5.4 % (1.7-9.3); NEUTROPHILS % (AUTO) 69.3 % (42.2-75.2); PLATELET COUNT (AUTO) 84 K/uL (140-450); RED CELL DISTRIBUTION WIDTH 15.8 % (11.6-13.7)
--- NOTE | 2017-11-10 06:00 | NUR ---
ADMINISTERED SCHEDULED IV ABX, TOLERATED WELL. NO ACUTE DISTRESS NOTED. PATIENT IN ASLEEP AT THIS TIME. AROUSABLE TO LIGHT TOUCH. FLACC 0. WILL CONTINUE TO MONITOR.
--- NOTE | 2017-11-10 06:55 | NUR ---
HOLD HEPARIN DRIP ORDERED AT THIS TIME FOR SURGICAL WOUND PROCEDURE TODAY. WILL CONTINUE TO MONITOR.
--- NOTE | 2017-11-10 07:20 | NUR ---
RECEIVED REPORT FROM NOC SHIFT RN. PT RESTING IN BED COMFORTABLY. SR ON MONITOR. SPONTANEOUS EYES OPENING, WITHDRAWS TO PAIN. SKIN DRY AND WARM TO TOUCH. PT ON OXYMIZER AT 3 LTR.MIN. RIGHT IJ TRIPLE LUMEN NOTED INTACT WITH GOOD BLOOD RETURNS. 1/2 NS WITH KCL 20 MEQ RUNNING AT 100 ML/HR. DOBUTAMIN RUNNING AT 4 MCG/KG/MIN. HEPARIN DRIP ON HOLD. LUNGS WHEEZING ON AUSCULTATION. GTUBE ON LUQ, RESIDUAL 0. ABDOMEN SOFT, ROUND AND NON-TENDER. ACTIVE BOWEL SOUND. WILCOX'S CATHETER IN PLACE DRAINING YELLOW URINE VIA GRAVITY. RECTAL BAG IN PLACE DRAINING WATERY DIARRHEA TO BAG. MULTIPLE OPEN WOUND AND BRUISES NOTED ALL OVER THE BODY. SACRO COCCYX PRESSURE ULCER ON BACK. EDEMATOUS BOTH UPPER AND LOWER EXTREMITIES. KEPT HOB ELEVATED. BED IN LOW POSITION LOCKED. WILL CONTINUE TO MONITOR.
--- NOTE | 2017-11-10 07:20 | NUR ---
REPORT GIVEN TO MORNING NURSE FOR CONTINUITY OF CARE.
[2017-11-10] MEDS: BLOOD GLUCOSE MONITORING 1 DEV DEV FS SCH ×4 (07:31→21:01)
[2017-11-10 07:38] LABS: ANION GAP 7.7 (8-16); CARBON DIOXIDE 28.6 mmol/L (21-32); CHLORIDE 113 mmol/L (98-107); CREATININE 0.4 mg/dL (0.6-1.3); GLUCOSE 124 mg/dL (74-106); POTASSIUM 4.3 mmol/L (3.5-5.1); SODIUM SERUM 145 mmol/L (136-145); UREA NITROGEN, BLOOD 13 mg/dL (7-18)
[2017-11-10 07:43] LABS: MAGNESIUM 1.9 mg/dL (1.8-2.4)
[2017-11-10] MEDS: LACTULOSE 20 GM/30 ML UDC PO SCH (09:00)
[2017-11-10] MEDS: INSULIN LANTUS 100 UNITS/ML 10 ML VIAL SUBQ SCH (09:50)
[2017-11-10] MEDS: GABAPENTIN 100 MG CAP GT SCH ×3 (09:51→17:53)
[2017-11-10] MEDS: MEMANTINE 10 MG TAB GT SCH ×2 (09:51→20:31)
[2017-11-10] MEDS: METOCLOPRAMIDE 10 MG/10 ML SYRP UDC GT SCH ×2 (09:52→20:32)
[2017-11-10] MEDS: COLISTIMETHATE SODIUM 75 MG in NACL 0.9% 100 ML IV SCH ×2 (09:53→20:31)
[2017-11-10] MEDS: ASCORBIC ACID 500 MG TAB PO SCH (09:54)
[2017-11-10] MEDS: ATORVASTATIN 20 MG TAB PO SCH (09:54)
[2017-11-10] MEDS: MULTIVITAMIN/MINERALS 1 TAB PO SCH (09:54)
--- NOTE | 2017-11-10 10:13 | NUR ---
DR. HERRERA MADE AWARE ABOUT PT HAVING DIARRHEA AND HELDING LACTULOSE AND HELDING LANTUS FOR BS 129.
[2017-11-10] MEDS: POTASSIUM CHL 20 MEQ/ 1/2 NS 1,000 ML IV SCH (10:20)
[2017-11-10] MEDS: NACL 0.9% 1,000 ML IV SCH ×2 (12:09→20:32)
[2017-11-10] MEDS: SODIUM FERRIC GLUCONATE 125 MG in NACL 0.9% 100 ML IV SCH (12:25)
--- NOTE | 2017-11-10 12:39 | NUR ---
SEEN BY DR. DRAKE. SAID WILL DO WOUND DEBRIDEMENT TOMORROW. DR. HERRERA MADE AWARE. WILL FOLLOW UP ON ORDER.
--- NOTE | 2017-11-10 12:41 | NUR ---
PT RESTING IN BED COMFORTABLY. NO ACUTE RESPIRATORY DISTRESS NOTED. NO CHANGE IN LOC. WILL CONTINUE TO MONITOR.
--- NOTE | 2017-11-10 13:58 | NUR ---
STOOL SAMPLE SENT TO LAB FOR OB.
--- NOTE | 2017-11-10 14:05 | NUR ---
PAGED DR. HERRERA TO FOLLOW UP FOR HEPARIN DRIP. WAITING FOR CALL BACK.
[2017-11-10] MEDS ORDERED: NON ADHERENT DRESSING TP PRN ×2 (14:10→14:25)
[2017-11-10] MEDS ORDERED: DRY DRESSING TP PRN (14:25)
[2017-11-10] MEDS ORDERED: SKINTEGRITY HYDROGEL TP PRN (14:25)
[2017-11-10] MEDS ORDERED: NACL 0.9% IRR 250 ML BOTTLE IR PRN ×2 (14:25→14:35)
[2017-11-10 14:34] LABS: ANION GAP 12.2 (8-16); CARBON DIOXIDE 26.2 mmol/L (21-32); CHLORIDE 111 mmol/L (98-107); CREATININE 0.4 mg/dL (0.6-1.3); GLUCOSE 192 mg/dL (74-106); POTASSIUM 4.4 mmol/L (3.5-5.1); SODIUM SERUM 145 mmol/L (136-145); UREA NITROGEN, BLOOD 12 mg/dL (7-18)
[2017-11-10] MEDS ORDERED: HYDRAGUARD CREAM TP PRN (14:35)
[2017-11-10] MEDS ORDERED: FOAM DRESSING TP PRN (14:35)
[2017-11-10] MEDS ORDERED: HEPARIN PER PHARMACY MC PRN ×2 (14:55→19:05)
[2017-11-10] MEDS ORDERED: LORazepam 2 MG/ML VIAL IM/IVP SCH (15:30)
[2017-11-10] MEDS: DRY DRESSING TP SCH (16:00)
[2017-11-10] MEDS: FOAM DRESSING TP SCH (16:00)
[2017-11-10] MEDS: SKINTEGRITY HYDROGEL TP SCH (16:00)
[2017-11-10] MEDS: HYDRAGUARD CREAM TP SCH (16:00)
[2017-11-10] MEDS: NACL 0.9% IRR 250 ML BOTTLE IR SCH ×2 (16:00)
[2017-11-10] MEDS: NON ADHERENT DRESSING TP SCH ×2 (16:00)
--- NOTE | 2017-11-10 19:17 | NUR ---
PT RESTING IN BED. NO CHANGE IN CONDITION. WILL CONTINUE TO MONITOR.
[2017-11-10] MEDS ORDERED: hePARIN / DEXT 5% PREMIX 250 ML IV SCH (19:20)
--- NOTE | 2017-11-10 19:45 | NUR ---
REPORT GIVEN TO NOC SHIFT RN FOR CONTINUITY OF CARE.
--- NOTE | 2017-11-10 19:45 | NUR ---
RECEIVED REPORT FROM DAY NURSE. NO ACUTE DISTRESS NOTED.
--- NOTE | 2017-11-10 20:00 | NUR ---
PT AWAKE, NON VERBAL @ THIS TIME. + 3 BRISK PERRL, PT UNABLE TO FOLLOW COMMANDS. FLACCID UPPER AND LOWER EXTREMITIES. QUADRIPLEGIC. C COLLAR IN PLACE, C SPINE PRECAUTIONS. GCS 9. OPENING EYES SPONTANEOUSLY. SINUS RHYTHM 70-80S +3 EDEMA TO PERIPHERAL UPPER AND LOWER EXTREMITIES NOTED. DIMINISHED BREATH SOUNDS THROUGHOUT. O2 OXIMIZER @ 3L. ABDOMEN SOFT NON DISTENDED. PEG TUBE IN PLACE WITH DIABETIC SOURCE RUNNING @ 50 ML/HR. FLEXYSEAL IN PLACE. F/C IN PLACE, CLEAR MITUL WITH SEDIMENTS NOTED. SKIN NON INTACT, S/P I&D TO SACRAL/COCCYX AREA DUE TO DECUBITIS, BULKY DRESSING CDI. WOUND TO OCCIPITAL AREA DRESSING CDI; REDNESS AROUND C COLLAR NOTED. RELEASED AND REAPPLIED PER WOUND CARE NURSE RECCOMENDATIONS. MULTIPLE BLISTERS TO BILATERAL FEET NOTED. NON BLANCHABLE REDNESS TO HEELS NOTED. SOFT FOAM BOOTS IN PLACE, ELEVATED WITH PILLOWS. CENTRAL LINE TO R IJ IN PLACE, PATENT. DOBUTAMINE RUNNING @ 4 MCG/KG/MIN, HEPARIN DRIP TO RESTART @ 1350 UNITS/HR PER MD ORDERS, 0.9 NS IVF INFUSING. NO BLEEDING NOTED. NO OTHER S/S OF ACUTE DISTRESS NOTED. WILL CONTINUE TO MONITOR.
[2017-11-10] MEDS: HYDROcodone/APAP 7.5/325 MG 1 TAB PO PRN (20:31)
[2017-11-10] MEDS: QUEtiapine FUMARATE 25 MG TAB PO SCH (20:31)
[2017-11-10] MEDS: hePARIN / DEXT 5% PREMIX 250 ML IV SCH (20:57)
--- NOTE | 2017-11-10 22:00 | NUR ---
PT ASLEEP @ THIS TIME, TURNED AND REPOSITIONED. WILL CONTINUE TO OBSERVE
[2017-11-10 23:05] LABS: APPEARANCE,URINE SL CLOUDY (CLEAR); BILIRUBIN,URINE NEGATIVE (NEGATIVE); BLOOD, URINE TRACE-I (NEGATIVE); COLOR,URINE YELLOW (YELLOW); LEUKOCYTE ESTERASE ,URINE NEGATIVE (NEGATIVE); NITRITE, URINE NEGATIVE (NEGATIVE); UGLUCOSE NEGATIVE (NEGATIVE)
[2017-11-11] VITALS (96 sets, daily range): BP systolic 74–132; BP diastolic 27–64
[2017-11-11] MEDS: PIPER/TAZO 2.25GM/D5W PREMIX 50 ML IV SCH ×4 (00:28→18:00)
[2017-11-11] MEDS: HYDRAGUARD CREAM TP SCH ×2 (01:00→13:00)
--- NOTE | 2017-11-11 01:00 | NUR ---
PT ASLEEP FLACC 0. NO S/S OF ACUTE DISTRESS NOTED. WILL CONTINUE TO OBSERVE.
[2017-11-11 03:20] LABS: MAGNESIUM 1.4 mg/dL (1.8-2.4); PHOSPHORUS 2.7 mg/dL (2.5-4.9)
[2017-11-11 03:45] LABS: ANION GAP 10.5 (8-16); CARBON DIOXIDE 26.2 mmol/L (21-32); CHLORIDE 112 mmol/L (98-107); CREATININE 0.4 mg/dL (0.6-1.3); GLUCOSE 151 mg/dL (74-106); POTASSIUM 3.7 mmol/L (3.5-5.1); SODIUM SERUM 145 mmol/L (136-145); UREA NITROGEN, BLOOD 13 mg/dL (7-18)
--- NOTE | 2017-11-11 04:00 | NUR ---
HEPARIN ON HOLD DUE TO ELEVATED PTT, PER HEPARIN PROTOCOL WILL RESTART IN HOUR AND REDUCE RATE TO 1150 UNITS/HR . NO BLEEDING NOTED. NO ACUTE DISTRESS NOTED. WILL CONTINUE TO OBSERVE.
[2017-11-11] MEDS ORDERED: MAG SULF 2000 MG/WATER PREMIX 50 ML IV SCH ×2 (05:00→07:30)
--- NOTE | 2017-11-11 05:00 | NUR ---
HEPARIN DRIP RESTARTED PER PROTOCOL WILL CONTINUE TO MONITOR.
[2017-11-11 05:30] LABS: BASOPHILS % (AUTO) 0.3 % (0.0-2.0); EOSINOPHILS # (AUTO) 0.1 K/uL (0-0.4); EOSINOPHILS % (AUTO) 2.5 % (0.0-4.0); HEMATOCRIT 21.3 % (36-48); LYMPHOCYTES # (AUTO) 0.8 K/uL (2.5-16.5); LYMPHOCYTES % (AUTO) 16.6 % (20.5-51.1); MEAN CORPUSCULAR HEMOGLOBIN 30 pg (27-31); MEAN CORPUSCULAR HGB CONC 32 g/dL (33-37); MEAN CORPUSCULAR VOLUME 91.9 fL (80-94); MONOCYTES # (AUTO) 0.3 K/uL (0.8-1.0); MONOCYTES % (AUTO) 7.2 % (1.7-9.3); NEUTROPHILS # (AUTO) 3.4 K/uL (1.8-7.7); NEUTROPHILS % (AUTO) 73.4 % (42.2-75.2); PLATELET COUNT (AUTO) 112 K/uL (140-450); RED BLOOD CELL COUNT(AUTO) 2.32 MIL/uL (4.20-5.40); RED CELL DISTRIBUTION WIDTH 15.7 % (11.6-13.7); WHITE BLOOD COUNT (AUTO) 4.6 K/uL (4.8-10.8)
[2017-11-11 05:35] LABS: HEMOGLOBIN 6.9 g/dL (12.0-16.0)
--- NOTE | 2017-11-11 06:00 | NUR ---
INFORMED DR PEACE ABOUT H/H. AWARE. STATED TO CONTINUE HEPARIN DRIP
[2017-11-11] MEDS: BLOOD GLUCOSE MONITORING 1 DEV DEV FS SCH ×4 (07:00→21:14)
--- NOTE | 2017-11-11 07:10 | NUR ---
RECEIVED REPORT FROM MAURICE MARCIAL RN. PT IS NON-VERBAL AND DOES NOT FOLLOW COMMANDS, SPONTANEOUS EYE OPENING. ANASARCA, PITTING +2. PUPILS ARE UNEQUAL, RESPONSIVE BUT SLUGGISH, RIGHT MORE THAN LEFT. PT IS BREATHING WITH OXYMIZER, 3L. PT IS ON SCALING MACHINE OPERATOR. PTS IS WEARING C-COLLAR. SKIN IS NOT INTACT; SCARS, BRUISING, CUTS, AND PRESSURE ULCERS ON BODY (SACRAL AND BACK OF HEAD); PRESSURE ULCER ON SACRUM HAS FOUL ODER AND NECROTIC. SEE WOUND ASSESSMENT. PT HAS DIMINISHED BREATH SOUNDS. S1S2 HEARD. BOWELS SOUNDS ARE ACTIVE AND PRESENT IN ALL 4 QUADRANTS. PT HAS G-TUBE IN PLACE, CURRENTLY NPO; ZERO RESIDUALS. PT HAS RIGHT IJ, ASYMPTOMATIC, ALL PORT FLUSH WITH GOOD BLOOD DRAW, DRESSING DRY AND INTACT; CURRENTLY RUNNING: HEPARIN DRIP, .9% NORMAL SALINE, AND DOBUTAMINE. PT HAS HEEL BOOTS ON. PT SKIN IS WARM AND DRY. PT HAS WILCOX CATHETER; UROMETER; CLEAR YELLOW URINE IN COLLECTION BAG. PT HAS FLEXI-SEAL FECAL COLLECTION BAG IN PLACE; WATERY FECAL-MATTER IN COLLECTION BAG. PT IS POSITIONED OFF PRESSURE AREAS AND POSITIONED FOR COMFORT, PT'S BED IS IN LOWEST POSITION WITH HOB ELEVATED, BED ALARM AND LOCK ON.
--- NOTE | 2017-11-11 07:30 | NUR ---
REPORT GIVEN TO DAY NURSE FOR CONTINUITY OF CARE.
[2017-11-11] MEDS: ASCORBIC ACID 500 MG TAB PO SCH (08:29)
[2017-11-11] MEDS: METOCLOPRAMIDE 10 MG/10 ML SYRP UDC GT SCH ×2 (08:32→21:10)
[2017-11-11] MEDS: MULTIVITAMIN/MINERALS 1 TAB PO SCH (08:33)
[2017-11-11] MEDS: NACL 0.9% 1,000 ML IV SCH ×3 (08:33→19:15)
[2017-11-11] MEDS: MEMANTINE 10 MG TAB GT SCH ×2 (08:33→21:10)
[2017-11-11] MEDS: ATORVASTATIN 20 MG TAB PO SCH (08:33)
[2017-11-11] MEDS: GABAPENTIN 100 MG CAP GT SCH ×3 (08:33→17:13)
[2017-11-11] MEDS: LACTULOSE 20 GM/30 ML UDC PO SCH (08:33)
[2017-11-11] MEDS: INSULIN LANTUS 100 UNITS/ML 10 ML VIAL SUBQ SCH (08:43)
[2017-11-11] MEDS ORDERED: HYDROcodone/APAP 7.5/325 MG 1 TAB PO PRN (09:05)
[2017-11-11] MEDS ORDERED: NACL 0.45% 1,000 ML IV SCH (09:05)
--- NOTE | 2017-11-11 10:45 | NUR ---
ASLEEP RESPONDS TO SENIOR APPLICATIONS ARCHITECT VERBAL WITH OPENING EYES AND MOUTHING WORDS NO RESPIRATORY DISTRESS NOTED BREATH SOUNDS CLEAR WITH GOOD CHEST RISE C-COLLAR REMAINS IN NECK REGION SATURATION 99% ON SUPPLEMENTAL OXYGEN AT 3 LPM VIA OXYMIZER TITRATE FIO2 TO 2 PLM VIA NC WITH HUMIDIFIER INDIO/RN AWARE SENIOR APPLICATIONS ARCHITECT TO MONITOR
--- NOTE | 2017-11-11 10:50 | NUR ---
RT TOOK PT OF OXYMIZER AND ONTO 2L NASAL CANULA.
[2017-11-11] MEDS: COLISTIMETHATE SODIUM 75 MG in NACL 0.9% 100 ML IV SCH ×2 (10:59→21:11)
[2017-11-11] MEDS: INSULIN LISPRO SLIDING SCALE 100 UNITS/ML VIAL SUBQ PRN (11:58)
[2017-11-11] MEDS: SODIUM FERRIC GLUCONATE 125 MG in NACL 0.9% 100 ML IV SCH (12:26)
[2017-11-11] MEDS: ACETAMINOPHEN 325 MG TAB PO SCH ×3 (12:26→20:00)
[2017-11-11] MEDS: NACL 0.9% IRR 250 ML BOTTLE IR SCH (13:00)
[2017-11-11] MEDS ORDERED: NON ADHERENT DRESSING TP SCH (13:00)
[2017-11-11] MEDS: SKINTEGRITY HYDROGEL TP SCH (13:00)
[2017-11-11] MEDS: DRY DRESSING TP SCH (13:00)
[2017-11-11] MEDS ORDERED: DRY DRESSING TP SCH (13:00)
[2017-11-11] MEDS: NON ADHERENT DRESSING TP SCH ×2 (13:00)
--- NOTE | 2017-11-11 13:44 | NUR ---
DR DRAKE ON THE PHONE WITH PT'S DAUGHTER DISCUSSING THE RISK OF SURGERY OF ACUTE DVT, ELEVATED PTT, NEED FOR I&D AND DIVERTING COLOSTOMY. I&D WAS SCHEDULED FOR 1300; OCTOBER BE MOVE UNTIL THIS EVENING
--- NOTE | 2017-11-11 13:45 | NUR ---
BLOOD TRANSFUSION BEGAN.
--- NOTE | 2017-11-11 14:07 | NUR ---
DR DRAKE STOPPED BY AGAIN; CHANGE OF PLANS. PROCEDURE WILL BE TOMORROW 11/12/17 AROUND 1045. RESUME FEEDINGS BUT STOP AT MIDNIGHT AND NPO UNTIL AFTER PROCEDURE. STOP HEPARIN TOMORROW MORNING AT 0400. PTT WILL BE ORDERED AND TAKEN STAT BEFORE SURGERY.
--- NOTE | 2017-11-11 16:17 | NUR ---
11/11/17 RD FOLLOW UP COMPLETED PLEASE REFER TO NUTRITION ASSESSMENT UNDER CARE ACTIVITY FOR ESTIMATED NUTRITIONAL NEEDS. 1.CONTINUE TF WITH GLUCERNIA 1.2 AT A GOAL RATE OF 55 ML/HR. INITIATE AT 10-20 ML/HR AND INCREASE Q6H 10 ML. -THIS WILL PROVIDE 1320 ML, 1584 KCAL AND 80 GM PROTEIN, MEETING 100% OF PATIENT'S ESTIMATED NEEDS. 2. RD TO FOLLOW-UP 2-3 DAYS, HIGH RISK MARI GIRON, RD
--- NOTE | 2017-11-11 17:45 | NUR ---
PLACED BEAR HUGGER ON PT FOR LOW TEMPERATURE
--- NOTE | 2017-11-11 18:14 | NUR ---
800ML URINE OUTPUT. CLOUDY WITH SEDIMENTS
--- NOTE | 2017-11-11 18:33 | NUR ---
WILCOX CARE, BED BATH, AND ORAL CARE. PTS FAMILY JUST LEFT BEDSIDE.
--- NOTE | 2017-11-11 19:30 | NUR ---
RECEIVED REPORT FROM MORNING NURSE. PT IS AWAKE, OBTUNDED, NONVERBAL, UNABLE TO FOLLOW COMMANDS, AND PERRL. BILATERAL LUNG SOUNDS DIMINISHED WITH RHONCHI. O2 VIA NC @2L/MIN. CENTRAL LINE TO RIJ WITH TLC-ALL PATENT AND ASYMPTOMATIC. PITTING EDEMA NOTED FROM UPPER EXTREMITIES AND FLUID SIPPING OUT OF SKIN. BOWEL SOUNDS ACTIVE FROM ALL 4 QUADS. WILCOX CATHETER DRAINING CLEAR YELLOW URINE. DRESSINGS INTACT ON THE SACROCOCCYX, BILATERAL FEET. GT IN PLACE AND RESIDUAL ZERO. VSS. FLACC 0. CURRENTLY 2NG PRBC BLOOD TRANSFUSION IS INFUSING. ON DOBUTAMINE DRIP AND HEPARIN DRIP DRIP ARE INFUSING. SR WITH BBB ON CONTINUOUS CARDIAC MONITORING. NOTED WITH THE ORDER FOR NPO AFTER MIDNIGHT FOR PREPARATION FOR I&D OF SACROCOCCYX PU AND DIVERTING COLOSTOMY 9AM ON 11/11/2017. CONTACT ISOLATION PRECAUTIONS CARRIED THROUGHOUT. CALL LIGHT IN REACH. HOB ELEVATED TO 30 DEGREES. BED KEPT TO THE LOWEST AND LOCKED. WILL CONTINUE TO MONITOR.
--- NOTE | 2017-11-11 19:50 | NUR ---
PRBC TRANSFUSION COMPLETED AT THIS TIME. NO ADVERSE REACTION NOTED. WILL CONTINUE TO MONITOR.
--- NOTE | 2017-11-11 20:50 | NUR ---
TYLENOL AND BENADRYL NOT ADMINISTERED DUE TO BLOOD TRANSFUSION WAS ALREADY COMPLETED.
[2017-11-11] MEDS: QUEtiapine FUMARATE 25 MG TAB PO SCH (21:10)
--- NOTE | 2017-11-11 21:14 | NUR ---
MEDS ADMINISTERED ORDERED. ZERO RESIDUAL NOTED. VSS. WILL CONTINUE TO MONITOR.
[2017-11-11 21:16] LABS: BASOPHILS % (AUTO) 0.3 % (0.0-2.0); EOSINOPHILS # (AUTO) 0.2 K/uL (0-0.4); EOSINOPHILS % (AUTO) 3.3 % (0.0-4.0); HEMATOCRIT 29.3 % (36-48); HEMOGLOBIN 9.7 g/dL (12.0-16.0); LYMPHOCYTES # (AUTO) 0.8 K/uL (2.5-16.5); LYMPHOCYTES % (AUTO) 13.6 % (20.5-51.1); MEAN CORPUSCULAR HEMOGLOBIN 30 pg (27-31); MEAN CORPUSCULAR HGB CONC 33 g/dL (33-37); MONOCYTES # (AUTO) 0.4 K/uL (0.8-1.0); MONOCYTES % (AUTO) 6.2 % (1.7-9.3); NEUTROPHILS # (AUTO) 4.6 K/uL (1.8-7.7); NEUTROPHILS % (AUTO) 76.6 % (42.2-75.2); PLATELET COUNT (AUTO) 132 K/uL (140-450); RED BLOOD CELL COUNT(AUTO) 3.26 MIL/uL (4.20-5.40); RED CELL DISTRIBUTION WIDTH 14.9 % (11.6-13.7)
[2017-11-11 21:26] LABS: CARBON DIOXIDE 27.4 mmol/L (21-32); CHLORIDE 112 mmol/L (98-107); CREATININE 0.4 mg/dL (0.6-1.3); GLUCOSE 170 mg/dL (74-106); POTASSIUM 3.4 mmol/L (3.5-5.1); SODIUM SERUM 144 mmol/L (136-145); UREA NITROGEN, BLOOD 11 mg/dL (7-18)
--- NOTE | 2017-11-11 22:02 | NUR ---
REPOSITIONED TO OFF LOAD. BILATERAL HEEL PROTECTORS IN PLACE FOR OFF LOAD. VSS. CONTINUES WITH BEARHUGGER FOR LOW TEMPERATURE. 97.8 F AT THIS TIME. WILL CONTINUE TO MONITOR.
[2017-11-12] VITALS (85 sets, daily range): BP systolic 79–148; BP diastolic 27–91
--- NOTE | 2017-11-12 | NUR ---
STOPPED G-TUBE FEEDING AT THIS TIME DUE TO NPO AFTER MIDNIGHT ORDER.
[2017-11-12] MEDS: MORPHINE SULFATE 2 MG/ML SYR IVP PRN ×2 (00:05→21:13)
[2017-11-12] MEDS: hePARIN / DEXT 5% PREMIX 250 ML IV SCH ×2 (00:47→17:19)
[2017-11-12] MEDS: PIPER/TAZO 2.25GM/D5W PREMIX 50 ML IV SCH ×4 (00:47→17:27)
[2017-11-12] MEDS: HYDRAGUARD CREAM TP SCH ×2 (00:48→13:12)
--- NOTE | 2017-11-12 01:01 | NUR ---
PT NOTED WITH LARGE LIGHT BROWN PASTY AND LIQUID STOOL. ASSISTED WITH HYGIENE, BED BATH, WILCOX CATHETER CARE. WOUND CARE PROVIDED AND NEW DRESSINGS APPLIED. VSS. FLACC 0. WILL CONTINUE TO MONITOR.
--- NOTE | 2017-11-12 03:52 | NUR ---
HEPARIN DRIP STOPPED FOR PREPARATION OF SURGERY IN AM ORDERED.
--- NOTE | 2017-11-12 04:15 | NUR ---
TURNED AND REPOSITIONED TO OFF LOAD. VSS. AFEBRILE. WILL CONTINUE TO MONITOR.
[2017-11-12] MEDS: NACL 0.9% 1,000 ML IV SCH (05:12)
[2017-11-12 05:16] LABS: BASOPHILS % (AUTO) 0.2 % (0.0-2.0); EOSINOPHILS # (AUTO) 0.2 K/uL (0-0.4); EOSINOPHILS % (AUTO) 3.1 % (0.0-4.0); HEMOGLOBIN 9.7 g/dL (12.0-16.0); LYMPHOCYTES # (AUTO) 0.7 K/uL (2.5-16.5); LYMPHOCYTES % (AUTO) 12.7 % (20.5-51.1); MEAN CORPUSCULAR HEMOGLOBIN 30 pg (27-31); MEAN CORPUSCULAR HGB CONC 33 g/dL (33-37); MEAN CORPUSCULAR VOLUME 90.1 fL (80-94); MONOCYTES # (AUTO) 0.4 K/uL (0.8-1.0); MONOCYTES % (AUTO) 7.4 % (1.7-9.3); NEUTROPHILS # (AUTO) 4.5 K/uL (1.8-7.7); NEUTROPHILS % (AUTO) 76.6 % (42.2-75.2); PLATELET COUNT (AUTO) 135 K/uL (140-450); RED BLOOD CELL COUNT(AUTO) 3.21 MIL/uL (4.20-5.40); RED CELL DISTRIBUTION WIDTH 15.5 % (11.6-13.7); WHITE BLOOD COUNT (AUTO) 5.8 K/uL (4.8-10.8)
--- NOTE | 2017-11-12 05:30 | NUR ---
PROVIDED MORNING CARE, BED BATH, LINEN CHANGE, AND WILCOX CATHETER CARE. DRESSING CLEAN AND INTACT. VSS. PT IS OFF HEPARIN DRIP SINCE 0400 AND FEEDING STOPPED SINCE MIDNIGHT FOR PREPARATION OF SURGERY ORDERED TODAY. WILL CONTINUE TO MONITOR.
[2017-11-12 06:18] LABS: ANION GAP 6.9 (8-16); CARBON DIOXIDE 27.1 mmol/L (21-32); CHLORIDE 113 mmol/L (98-107); CREATININE 0.3 mg/dL (0.6-1.3); GLUCOSE 65 mg/dL (74-106); SODIUM SERUM 144 mmol/L (136-145); UREA NITROGEN, BLOOD 12 mg/dL (7-18)
[2017-11-12] MEDS: BLOOD GLUCOSE MONITORING 1 DEV DEV FS SCH ×4 (06:42→20:36)
[2017-11-12] MEDS: DEXTROSE 50% 50 ML SYR IVP PRN (06:42)
--- NOTE | 2017-11-12 06:43 | NUR ---
BS=40. RECHECKED BS=36. D50 ADMINISTERED ORDERED. WILL CLOSELY MONITOR.
--- NOTE | 2017-11-12 06:53 | NUR ---
BLOOD GLUCOSE RECHECKED AFTER D50 ADMINISTRATION. CURRENTLY 161.
--- NOTE | 2017-11-12 07:00 | NUR ---
DR. PAZ WAS NOTIFIED ABOUT THE BG=36. WILL FOLLOW UP W/ ANY NEW ORDERS.
--- NOTE | 2017-11-12 07:16 | NUR ---
REPORT GIVEN TO MORNING SHIFT RN FOR CONTINUITY OF CARE. VSS. ALL SAFETY PRECAUTIONS ARE IN PLACE.
--- NOTE | 2017-11-12 07:17 | NUR ---
RECEIVED REPORT FROM TUBE AND ROD STRAIGHTENER NURSE AT BEDSIDE, PT IS AWAKE, APHASIC, PERRL, UNABLE TO FOLLOW COMMANDS, FLACC 0, VSS, NO S/S OF DISTRESS, DIMINISHED LUNG SOUND JUANCARLOS, ON O2 VIA NC @2L/MIN. CENTRAL LINE TO RIJ WITH TLC, PATENT AND ASYMPTOMATIC, RUNNING D5 NS AT 100ML/HR, DOBUTAMINE AT 2MCG/KG/MIN, SR/BBB ON CIGARETTE MACHINES MECHANIC, SOFT ABDOMEN WITH ACTIVE BOWEL SOUNDS, GTUBE IN PLACE, NPO AT THIS TIME, WILCOX CATHETER IN PLACE DRAINING CLEAR YELLOW URINE VIA GRAVITY, PITTING EDEMA TO JUANCARLOS. PPER EXTREMITIES AND FLUID SIPPING OUT OF SKIN NOTED. SKIN IS COOL, PLACED ON BARREL HUGGER, MULTIPLE WOUND PRESENT (SEE WOUND ASSESSMENT), SEVERE WEAKNESS TO ALL EXTREMITIES NOTED, ON CONTACT ISOLATION PRECAUTIONS, HOB ELEVATED TO 30 DEGREES, SAFETY MEASURES IN PLACE, POSITION CHANGED FOR OFF LOAD PRESSURE, WILL CONTINUE TO MONITOR.
[2017-11-12] MEDS ORDERED: KCL 20 MEQ/WATER INJ PREMIX 200 ML IV SCH (08:00)
[2017-11-12] MEDS: MEMANTINE 10 MG TAB GT SCH ×2 (08:10→20:35)
[2017-11-12] MEDS: DEXT 5% /NACL 0.9% 1,000 ML IV SCH ×2 (08:10→20:44)
[2017-11-12] MEDS: GABAPENTIN 100 MG CAP GT SCH ×3 (08:11→17:27)
[2017-11-12] MEDS: ASCORBIC ACID 500 MG/5 ML ORASYR GT SCH (08:12)
[2017-11-12] MEDS: METOCLOPRAMIDE 10 MG/10 ML SYRP UDC GT SCH ×2 (08:12→20:35)
[2017-11-12] MEDS: MULTIVITAMIN/MINERALS 1 TAB PO SCH (08:12)
[2017-11-12] MEDS: ATORVASTATIN 20 MG TAB PO SCH (08:13)
[2017-11-12] MEDS: COLISTIMETHATE SODIUM 75 MG in NACL 0.9% 100 ML IV SCH ×2 (08:21→20:36)
[2017-11-12] MEDS: INSULIN LANTUS 100 UNITS/ML 10 ML VIAL SUBQ SCH (08:24)
[2017-11-12 09:41] LABS: MAGNESIUM 1.8 mg/dL (1.8-2.4); PHOSPHORUS 2.1 mg/dL (2.5-4.9)
--- NOTE | 2017-11-12 10:00 | NUR ---
NO S/S OF DISTRESS, VSS, FLACC 0, POSITION CHANGED FOR OFF LOAD PRESSURE.
[2017-11-12] MEDS ORDERED: MIDODRINE 5 MG TAB PO PRN (10:10)
--- NOTE | 2017-11-12 10:21 | NUR ---
DR. BARCENAS CAME IN TO SEE PT AT BEDSIDE, WILL FOLLOW UP WITH NEW ORDERS.
[2017-11-12] MEDS ORDERED: BUPIVACAINE-MPF 0.25% 30 ML VIAL INJ ONE ×2 (10:43→12:23)
[2017-11-12] MEDS ORDERED: PROPOFOL 200 MG/20 ML VIAL IV ONE (10:50)
[2017-11-12] MEDS ORDERED: MIDAZOLAM 2 MG/2 ML VIAL ONE (10:54)
[2017-11-12] MEDS ORDERED: KETAMINE 500 MG/5 ML VIAL ONE (10:54)
[2017-11-12] MEDS ORDERED: HYDROmorphone PFS 2 MG/ML SYR ONE (10:54)
--- NOTE | 2017-11-12 11:00 | NUR ---
PT IS OFF UNIT TO OR VIA BED WITH OR NURSE FOR SURGERY.
[2017-11-12] MEDS ORDERED: fentaNYL 0.05 MG/ML VIAL ONE (11:35)
--- NOTE | 2017-11-12 12:55 | NUR ---
PT IS BACK FROM SURGERY S/P DIVERTING COLOSTOMY, SACRAL DECUB ULCER DEBRIDEMENT. AWAKE, VSS, FLACC 0. ABDOMINAL DRESSING DRY AND INTACT, COLOSTOMY TO RLQ, SMALL AMOUNT OF SEROSANGUINEOUS DRAINAGES TO THE COLOSTOMY BAG NOTED. SACROCOCCYX WOUND AREA COVERED WITH STERIL OR SURGICAL TOWER AT THIS TIME, SPOKE TO ROSAURA, WOUND CARE NURSE, WILL COME AT AROUND 1430 TO PUT WOUND VAC.
[2017-11-12] MEDS: NON ADHERENT DRESSING TP SCH ×2 (13:12)
[2017-11-12] MEDS: NACL 0.9% IRR 250 ML BOTTLE IR SCH (13:12)
[2017-11-12] MEDS: DRY DRESSING TP SCH (13:12)
[2017-11-12] MEDS: SKINTEGRITY HYDROGEL TP SCH (13:12)
[2017-11-12] MEDS: SODIUM FERRIC GLUCONATE 125 MG in NACL 0.9% 100 ML IV SCH (13:18)
[2017-11-12] MEDS: HYDROCORTISONE NA SUCC 100 MG/2 ML VIAL IV SCH ×2 (13:18→20:36)
--- NOTE | 2017-11-12 14:45 | NUR ---
RESUME TUBE FEEDING ORDERED.
--- NOTE | 2017-11-12 15:00 | NUR ---
WOUND CARE NURSE CAME IN, WOUND VAC PLACED TO SACROCOCCYX AREA. PT TOLERATED WELL ALL THE PROCEDURE.
[2017-11-12] MEDS ORDERED: HEPARIN PER PHARMACY MC PRN (15:05)
--- NOTE | 2017-11-12 16:00 | NUR ---
NO S/S OF DISTRESS, VSS, FLACC 0, PM CARE AND F/C CARE PROVIDED, POSITION CHANGED FOR OFF LOAD PRESSURE.
--- NOTE | 2017-11-12 17:00 | NUR ---
RESUMED HEPARIN DRIP ORDERED.
--- NOTE | 2017-11-12 18:00 | NUR ---
NO CHANGE OF CONDITION AT THIS TIME, VSS, FLACC 0, POSITION CHANGED FOR OFF LOAD PRESSURE.
--- NOTE | 2017-11-12 19:24 | NUR ---
REPORT GIVEN TO METAL CRAFTS TEACHER NURSE FOR CONTINUE OF CARE, PT IS IN STABLE CONDITION AT THIS TIME.
--- NOTE | 2017-11-12 19:30 | NUR ---
RECEIVED REPORT FROM MORNING SHIFT RN. PT IS AWAKE, NONVERBAL, UNABLE TO FOLLOW COMMANDS. PERRL. RIJ CENTRAL LINE WITH TLC-ALL PATENT AND ASYMPTOMATIC. BILATERAL UPPER LOBES SOUND CLEAR AND BILATERAL LOWER LOBES SOUND DIMINISHED. CAPILLARY REFILLS WITHIN 3 SEC. PT IS CURRENTLY ON DOPAMINE DRIP @ 3 MCG/KG/MIN AND HEPARIN DRIP @ 1150 UNITS/HR. NEXT PTT TO BE DONE AT 2300 NOTED. PT HAD DIVERTING COLOSTOMY AND SACROCOCCYX PRESSURE ULCER DEBRIDEMENT THIS AM. NOTED WITH COLOSTOMY ON THE RLQ WITH SMALL AMOUNT OF DARK BROWN LIQUID FECAL MATTER NOTED IN THE COLOSTOMY BAG. SURGICAL INCISION COVERED WITH SURGICAL DRESSING ON THE LONGITUDINAL ABDOMEN-CLEAN AND DRY. GT IN PLACE AND RUNNING. 10ML RESIDUAL NOTED. WOUND VAC IN PLACE AND FUNCTIONING PROPERLY ON THE SACROCOCCYX P.U. WILCOX CATH DRAINING YELLOW CLEAR URINE. VSS AND AFEBRILE. CONTACT PRECAUTIONS CARRIED OUT. CALL LIGHT IN REACH AND HOB ELEVATED 30 DEGREES. BED LOCKED AND KEPT TO THE LOWEST. WILL CONTINUE TO MONITOR. Addendum: 11/13/17 at 0627 by Miranda Parks RN NOT DOPAMINE DRIP- CORRECTION TO DOBUTAMINE DRIP @ 3 MCG/KG/MIN
--- NOTE | 2017-11-12 19:50 | NUR ---
DOPAMINE DRIP TITRATED DOWN TO 2 MCG/KG/MIN DUE TO IO=694/45. WILL CONTINUE TO MONITOR. Addendum: 11/13/17 at 06 by Miranda Parks RN NOT DOPAMINE DRIP. CORRECTION- DOBUTAMINE DRIP 2 MCG/KG/MIN
[2017-11-12] MEDS: INSULIN LISPRO SLIDING SCALE 100 UNITS/ML VIAL SUBQ PRN (20:33)
[2017-11-12] MEDS: QUEtiapine FUMARATE 25 MG TAB PO SCH (20:36)
--- NOTE | 2017-11-12 20:40 | NUR ---
REPOSITIONED FOR COMFORT. MEDS ADMINISTERED ORDERED. WILL CONTINUE TO MONITOR.
--- NOTE | 2017-11-12 21:15 | NUR ---
FLACC 7. REPOSITIONED FOR COMFORT BUT UNSUCCESSFUL. MORPHINE ADMINISTERED ORDERED. WILL CONTINUE TO MONITOR.
--- NOTE | 2017-11-12 23:57 | NUR ---
CRITICAL LAB RESULT RECEIVED FOR PTT. REPORTED TO DR. PEACE AND ORDERED TO FOLLOW THE HEPARIN PROTOCOL. HEPARIN DRIP STOPPED AT THIS TIME.
[2017-11-13] VITALS (73 sets, daily range): BP systolic 89–167; BP diastolic 34–64
[2017-11-13] MEDS: HYDRAGUARD CREAM TP SCH ×2 (00:05→13:52)
[2017-11-13] MEDS: PIPER/TAZO 2.25GM/D5W PREMIX 50 ML IV SCH ×5 (00:05→23:23)
--- NOTE | 2017-11-13 00:05 | NUR ---
WOUND CARE TREATMENTS PROVIDED AND DRESSINGS CHANGES ORDERED. PT TOLERATED WELL.
--- NOTE | 2017-11-13 00:17 | NUR ---
ASSISTED WITH REPOSITIONING FOR COMFORT AND OFF LOAD. VSS AND AFEBRILE. WILL CONTINUE TO MONITOR.
--- NOTE | 2017-11-13 00:59 | NUR ---
HEPARIN DRIP RESUMED @ 950 UNITS/HR PER PROTOCOL. NEXT PTT NOTED TO BE @0500 IN AM. WILL CONTINUE TO MONITOR.
--- NOTE | 2017-11-13 01:58 | NUR ---
REPOSITIONED FOR COMFORT AND OFF LOAD PRESSURE AREAS. WOUND VAC FUNCTIONING PROPERLY DRAINING LIGHT BROWN MIXED WITH BLOOD FLUID. COLOSTOMY BAG INTACT AND NOTED TO HAVE DARK BROWN LIQUID WITH FECAL MATTER IN THE BAG. VSS AND AFEBRILE. WILL CONTINUE TO MONITOR.
[2017-11-13] MEDS: MORPHINE SULFATE 2 MG/ML SYR IVP PRN (04:07)
--- NOTE | 2017-11-13 04:08 | NUR ---
FLACC 7. REPOSITIONED FOR COMFORT AND OFF LOAD PRESSURE AREAS. MORPHINE ADMINISTERED ORDERED. WILL CONTINUE TO MONITOR.
[2017-11-13] MEDS: HYDROCORTISONE NA SUCC 100 MG/2 ML VIAL IV SCH ×3 (05:03→20:41)
--- NOTE | 2017-11-13 05:03 | NUR ---
MORNING CARE, BED BATH, LINEN CHANGE, WILCOX CATHETER CARE, ORAL CARE PROVIDED. WOUND VAC INTACT AND FUNCTIONING PROPERLY. FLACC 0. VSS. AFEBRILE. WILL CONTINUE TO MONITOR.
--- NOTE | 2017-11-13 06:00 | NUR ---
DR. BEAVER IN TO SEE PT. PT O2 SAT NOT GOING UP ABOVE 90 WITH ORAL SUCTION AND O2 INCREASED TO 6L STILL 88. RT AT BED SIDE. APPLIED OXYMIZER @10L/MN. O2 SAT 91% AT THIS TIME. WILL CONTINUE TO MONITOR.
--- NOTE | 2017-11-13 06:05 | NUR ---
PATIENTS SATS DROPPED TO 86% ON 2LNC. INCREASED FIO2 TO 4LNC. NO IMPROVEMENT. SWITCHED PT TO OXYMIZER AT 8L. SATS 88%. INCREASED TO 10L SATS 91%
--- NOTE | 2017-11-13 06:26 | NUR ---
DOBUTAMINE DRIP TITRATED DOWN TO 1 MCG/KG/MIN. WILL CONTINUE TO MONITOR.
[2017-11-13 06:28] LABS: HEMOGLOBIN 10.3 g/dL (12.0-16.0); MEAN CORPUSCULAR HEMOGLOBIN 30 pg (27-31); MEAN CORPUSCULAR HGB CONC 33 g/dL (33-37); MEAN CORPUSCULAR VOLUME 90.2 fL (80-94); PLATELET COUNT (AUTO) 168 K/uL (140-450); RED BLOOD CELL COUNT(AUTO) 3.44 MIL/uL (4.20-5.40); RED CELL DISTRIBUTION WIDTH 15.5 % (11.6-13.7); WHITE BLOOD COUNT (AUTO) 8.1 K/uL (4.8-10.8)
[2017-11-13 06:37] LABS: ANION GAP 11.3 (8-16); CARBON DIOXIDE 24.6 mmol/L (21-32); CHLORIDE 109 mmol/L (98-107); CREATININE 0.3 mg/dL (0.6-1.3); GLUCOSE 224 mg/dL (74-106); POTASSIUM 3.9 mmol/L (3.5-5.1); SODIUM SERUM 141 mmol/L (136-145); UREA NITROGEN, BLOOD 10 mg/dL (7-18)
[2017-11-13 06:39] LABS: MAGNESIUM 1.5 mg/dL (1.8-2.4); PHOSPHORUS 2.5 mg/dL (2.5-4.9)
[2017-11-13] MEDS: BLOOD GLUCOSE MONITORING 1 DEV DEV FS SCH ×4 (06:52→19:38)
[2017-11-13] MEDS: INSULIN LISPRO SLIDING SCALE 100 UNITS/ML VIAL SUBQ PRN ×3 (06:52→19:51)
--- NOTE | 2017-11-13 06:53 | NUR ---
BLOOD IDEVUUR=823. INSULIN ADMINISTERED PER SLIDING SCALE.
--- NOTE | 2017-11-13 07:00 | NUR ---
PTT=76.6. TITRATED HEPARIN DRIP TO 850 UNITS/HR PER HEPARIN PROTOCOL.
[2017-11-13 07:20] LABS: LYMPHOCYTES % (MANUAL) 7 % (20-46); MONOCYTES % (MANUAL) 2 % (5-12)
--- NOTE | 2017-11-13 07:21 | NUR ---
11/13/17 RD FOLLOW UP COMPLETED PLEASE REFER TO NUTRITION PROGRESS NOTE UNDER CARE ACTIVITY FOR ESTIMATED NUTRITION NEEDS. RD RECOMMENDATIONS: 1. RECOMMEND CONTINUE CURRENT TF GLUCERNA 1.2@50MLS/HR; SUFFICIENT TO MEET 100% ESTIMATED DAILY NUTRITIONAL NEEDS. 2. RD TO FOLLOW-UP IN 2-3 DAYS, HIGH RISK ISABEL PULLIAM MBA, RD
--- NOTE | 2017-11-13 07:27 | NUR ---
RECEIVED BEDSIDE REPORT FROM CONTACT LENS BLOCKER AND CUTTER RN FOR CONTINUITY OF CARE. PATIENT IS ASLEEP, EYES MOVE SPONTANEOUSLY, UNABLE TO MAKE NEEDS KNOWN. PATIENT SKIN IS NOT INTACT, PATIENT HAS WOUND VAC TO SACRALCOCCYX WOUND. SHE HAS CENTRAL LINE TO RIGHT IJ, TRIPLE LUMEN. PATIENT HAS NASAL OXYMIZER AT 10LPM, SR ON MONITOR. PATIENT HAS GTUBE IN PLACE, TO TUBE FEEDING, GLUCERNA. PATIENT HAS WILCOX CATHETER IN PLACE. PATIENT ALSO HAS COLOSTOMY BAG IN PLACE. HOB IS 30 DEGREES, SUCTION AT BEDSIDE. CALL LIGHT WITHIN REACH, NO SIGNS OF DISTRESS NOTED. WILL CONTINUE TO MONITOR.
--- NOTE | 2017-11-13 07:30 | NUR ---
REPORT GIVEN TO MORNING RN FOR CONTINUITY OF CARE. VSS AND AFEBRILE. ALL SAFETY PRECAUTIONS ARE IN PLACE.
[2017-11-13] MEDS ORDERED: DEXTROSE 10% 500 ML IV SCH (08:15)
--- NOTE | 2017-11-13 08:50 | NUR ---
GIVEN SCHEDULED MEDS VIA Ceannate, PATIENT TOLERATED WELL. NO SIGNS OF DISTRESS NOTED. WILL CONTINUE TO MONITOR.
[2017-11-13] MEDS: ASCORBIC ACID 500 MG/5 ML ORASYR GT SCH (08:53)
[2017-11-13] MEDS: ATORVASTATIN 20 MG TAB PO SCH (08:54)
[2017-11-13] MEDS: MEMANTINE 10 MG TAB GT SCH ×2 (08:54→20:40)
[2017-11-13] MEDS: METOCLOPRAMIDE 10 MG/10 ML SYRP UDC GT SCH ×2 (08:54→20:41)
[2017-11-13] MEDS: MULTIVITAMIN/MINERALS 1 TAB PO SCH (08:54)
--- NOTE | 2017-11-13 08:54 | NUR ---
DR. NASSAR IN TO SEE AND EXAMINE PATIENT, UPDATED ON PATIENT'S CONDITION. WILL FOLLOW UP ON ANY ORDERS.
[2017-11-13] MEDS: COLISTIMETHATE SODIUM 75 MG in NACL 0.9% 100 ML IV SCH ×2 (08:55→20:41)
[2017-11-13] MEDS: GABAPENTIN 100 MG CAP GT SCH ×3 (08:55→17:45)
[2017-11-13] MEDS: INSULIN LANTUS 100 UNITS/ML 10 ML VIAL SUBQ SCH (08:56)
--- NOTE | 2017-11-13 09:05 | NUR ---
RESIDENT PHYSICIANS MAKING ROUNDS, UPDATED ON PATIENT'S CONDITION, WILL FOLLOW UP ON ANY ORDERS.
[2017-11-13] MEDS ORDERED: NACL 0.9% 500 ML IV SCH (09:15)
[2017-11-13] MEDS ORDERED: MIDODRINE 5 MG TAB PO SCH (09:30)
--- NOTE | 2017-11-13 12:05 | NUR ---
RECEIVED CRITICAL LAB PTT 53.5, NO CHANGE IN TITRATION AT THIS TIME.
[2017-11-13] MEDS: NACL 0.9% IRR 250 ML BOTTLE IR SCH (12:23)
--- NOTE | 2017-11-13 13:50 | NUR ---
FAMILY AT BEDSIDE, NOTIFIED RESIDENT PHYSICIAN. AWAITING RESIDENT PHYSICIANS TO SPEAK WITH FAMILY.
[2017-11-13] MEDS: DRY DRESSING TP SCH (13:52)
[2017-11-13] MEDS: MIDODRINE 5 MG TAB PO SCH ×2 (13:52→20:42)
[2017-11-13] MEDS: NON ADHERENT DRESSING TP SCH ×2 (13:52)
[2017-11-13] MEDS: SKINTEGRITY HYDROGEL TP SCH (13:53)
[2017-11-13] MEDS ORDERED: ALBUMIN HUMAN 25% 50 ML IV SCH (14:00)
--- NOTE | 2017-11-13 14:16 | NUR ---
DR. BEAVER IN TO SPEAK WITH PATIENT'S FAMILY.
--- NOTE | 2017-11-13 14:18 | NUR ---
SIGN LANGUAGE TRANSLATOR AT BEDSIDE FOR CHEST XRAY, PATIENT PRESENTS NO SIGNS OF DISTRESS AT THIS TIME.
--- NOTE | 2017-11-13 16:10 | NUR ---
DR. DRAKE IN TO SEE AND EXAMINE PATIENT, UPDATED ON PATIENT'S CONDITION. WILL FOLLOW UP ON ANY ORDERS.
--- NOTE | 2017-11-13 19:30 | NUR ---
PATIENT REPORT RECEIVED FROM MORNING NURSE AT BEDSIDE FOR CONTINUITY OF CARE. PATIENT IS ASLEEP. BUT EASY TO AROUSE. PATIENT IS NONVERBAL AND UNABLE TO FOLLOW COMMANDS AT THIS TIME. ON O2 10L VIA OXYMIZER. RIJ TLC NOTED, LINES ARE ASYMPTOMATIC AND PATENT. LUNG SOUNDS ARE CLEAR. HEPARIN DRIP IS CURRENTLY RUNNING AT 1080 UNITS/HR. COLOSTOMY NOTED ON RLQ. SURGICAL INCISION DRESSING ON ABDOMEN, CLEAN, DRY AND INTACT. GTUBE IN PLACE WITH TUBE FEEDING RUNNING AT 50ML/HR. NO RESIDUAL NOTED. WOUND VAC IN PLACE ON THE SACROCOCCYX PRESSURE ULCER. FC IN PLACE DRAINING CLEAR, YELLOW URINE. VITAL SIGNS ARE STABLE AND PATIENT IS AFEBRILE. FLACC 0. CONTACT AND SAFETY PRECAUTIONS IN PLACE. BED LOCKED AND KEPT TO THE LOWEST POSITION. WILL CONTINUE TO MONITOR.
--- NOTE | 2017-11-13 19:41 | NUR ---
RECEIVED PATIENT ON 10L OXYMIZER, O2 SAT 96%. CONTINUOUS PULSE OX ON AND FUNCTIONING. NO RESPIRATORY DISTRESS NOTED AT THIS TIME. WILL CONTINUE TO MONITOR.
[2017-11-13] MEDS: hePARIN / DEXT 5% PREMIX 250 ML IV SCH (19:42)
--- NOTE | 2017-11-13 21:00 | NUR ---
MEDICATION EDUCATION GIVEN. MEDICATION ADMINISTERED ORDERED. PATIENT TOLERATED WELL. WILL CONTINUE TO MONITOR.
--- NOTE | 2017-11-13 22:00 | NUR ---
PATIENT REPOSITIONED FOR COMFORT. PATIENT TOLERATED WELL. WILL CONTINUE TO MONITOR.
--- NOTE | 2017-11-13 23:30 | NUR ---
NOTIFIED DR. KENNY OF PATIENTS MAG LEVEL OF 1.5. ORDERS RECEIVED.
[2017-11-14] VITALS (13 sets, daily range): BP systolic 145–171; BP diastolic 46–99
[2017-11-14] MEDS ORDERED: MAGNESIUM OXIDE 400 MG TAB PO SCH
--- NOTE | 2017-11-14 | NUR ---
PATIENT REPOSITIONED FOR COMFORT. PATIENT TOLERATED WELL. WILL CONTINUE TO MONITOR.
[2017-11-14] MEDS: HYDRAGUARD CREAM TP SCH ×2 (01:00→13:50)
--- NOTE | 2017-11-14 01:38 | NUR ---
PTT IS 144.9. PER PHARMACY, WILL HOLD HEPARIN DRIP FOR 1 HOUR, THEN DECREASE RATE BY 200 UNITS
--- NOTE | 2017-11-14 01:44 | NUR ---
OXYMIZER DECREASED TO 8L/MIN BY RT. PATIENT TOLERATING WELL
--- NOTE | 2017-11-14 02:40 | NUR ---
HEPARIN DRIP RESTARTED. NOW RUNNING AT 880 UNITS/HR
[2017-11-14] MEDS: MORPHINE SULFATE 2 MG/ML SYR IVP PRN (03:40)
--- NOTE | 2017-11-14 03:40 | NUR ---
PATIENT MOANING AND FREQUENT FACIAL GRIMACING. PAIN MEDICATION ADMINISTERED ORDERED.
--- NOTE | 2017-11-14 04:00 | NUR ---
BED BATH AND CATHETER CARE DONE. PADS AND GOWN CHANGED. PATIENT REPOSITIONED FOR COMFORT. WILL CONTINUE TO MONITOR.
[2017-11-14] MEDS: HYDROCORTISONE NA SUCC 100 MG/2 ML VIAL IV SCH ×3 (04:59→21:48)
[2017-11-14] MEDS: MIDODRINE 5 MG TAB PO SCH ×2 (05:00→13:00)
[2017-11-14] MEDS: PIPER/TAZO 2.25GM/D5W PREMIX 50 ML IV SCH ×4 (05:35→23:20)
--- NOTE | 2017-11-14 05:40 | NUR ---
NOTIFIED DR. KENNY OF PATIENT'S BRADYCARDIA
--- NOTE | 2017-11-14 05:41 | NUR ---
CHECKED ON PATIENT. PATIENT IS ASLEEP. BUT EASY TO AROUSE. NO SIGNS AND SYMPTOMS OF DISTRESS NOTED. WILL CONTINUE TO MONITOR.
[2017-11-14] MEDS: BLOOD GLUCOSE MONITORING 1 DEV DEV FS SCH ×4 (05:48→21:53)
[2017-11-14 06:49] LABS: EOSINOPHILS % (AUTO) 0.1 % (0.0-4.0); HEMATOCRIT 27.6 % (36-48); HEMOGLOBIN 9.2 g/dL (12.0-16.0); LYMPHOCYTES # (AUTO) 0.7 K/uL (2.5-16.5); MEAN CORPUSCULAR HEMOGLOBIN 30 pg (27-31); MEAN CORPUSCULAR HGB CONC 33 g/dL (33-37); MONOCYTES # (AUTO) 0.4 K/uL (0.8-1.0); MONOCYTES % (AUTO) 3.6 % (1.7-9.3); NEUTROPHILS # (AUTO) 9.4 K/uL (1.8-7.7); PLATELET COUNT (AUTO) 198 K/uL (140-450); RED BLOOD CELL COUNT(AUTO) 3.03 MIL/uL (4.20-5.40); RED CELL DISTRIBUTION WIDTH 15.2 % (11.6-13.7); WHITE BLOOD COUNT (AUTO) 10.5 K/uL (4.8-10.8)
[2017-11-14 07:01] LABS: ANION GAP 9.8 (8-16); CARBON DIOXIDE 26.4 mmol/L (21-32); CHLORIDE 112 mmol/L (98-107); CREATININE 0.4 mg/dL (0.6-1.3); GLUCOSE 126 mg/dL (74-106); POTASSIUM 3.2 mmol/L (3.5-5.1); SODIUM SERUM 145 mmol/L (136-145); UREA NITROGEN, BLOOD 12 mg/dL (7-18)
--- NOTE | 2017-11-14 07:06 | NUR ---
PATIENT REPORT GIVEN TO MORNING NURSE AT BEDSIDE FOR CONTINUITY OF CARE. PATIENT IS IN STABLE CONDITION
--- NOTE | 2017-11-14 07:06 | NUR ---
RECEIVED REPORT AT BEDSIDE FROM SLAB POLISHER RN FOR CONTINUITY OF CARE. PATIENT IS AWAKE, NONVERBAL, UNABLE TO MAKE NEEDS KNOWN. SKIN WARM AND DRY, NOT INTACT, SHE HAS A PRESSURE ULCER TO SACRALCOCCYX WITH WOUND VAC IN PLACE, PATIENT ALSO HAS MULTIPLE DTI TO BILATERAL FEET, DRESSING CLEAN AND DRY. SHE HAS A NECK BRACE IN PLACE. PATIENT IS ON NASAL OXYMIZER AT 8LPM, SINUS BRADYCARDIA ON MANAGER STEEL. PATIENT HAS A GTUBE IN PLACE TO TUBE FEEDING, COLOSTOMY BAG IN PLACE. WILCOX CATHETER IN PLACE TO CLEAR YELLOW URINE. HOB IS 30 DEGREES, IN A LOW POSITION, SUCTION BY BEDSIDE. CALL LIGHT IS WITHIN REACH. NO SIGNS OF DISTRESS NOTED. WILL CONTINUE TO MONITOR.
[2017-11-14 07:10] LABS: MAGNESIUM 1.4 mg/dL (1.8-2.4); PHOSPHORUS 2.5 mg/dL (2.5-4.9)
[2017-11-14 07:37] LABS: LYMPHOCYTES % (AUTO) 6.7 % (20.5-51.1); NEUTROPHILS % (AUTO) 89.6 % (42.2-75.2)
--- NOTE | 2017-11-14 08:42 | NUR ---
DR. PHILIP AND RESIDENT PHYSICIANS IN TO SEE PATIENT, UPDATED ON PATIENT'S CONDITION. WILL FOLLOW UP ON ANY ORDERS.
[2017-11-14] MEDS: GABAPENTIN 100 MG CAP GT SCH ×3 (09:30→17:41)
[2017-11-14] MEDS: MULTIVITAMIN/MINERALS 1 TAB PO SCH (09:31)
[2017-11-14] MEDS: MEMANTINE 10 MG TAB GT SCH ×2 (09:31→21:51)
[2017-11-14] MEDS: METOCLOPRAMIDE 10 MG/10 ML SYRP UDC GT SCH (09:33)
[2017-11-14] MEDS: INSULIN LANTUS 100 UNITS/ML 10 ML VIAL SUBQ SCH (09:33)
[2017-11-14] MEDS: COLISTIMETHATE SODIUM 75 MG in NACL 0.9% 100 ML IV SCH ×2 (09:33→21:49)
--- NOTE | 2017-11-14 09:59 | NUR ---
CHANGED AND REPOSITIONED PATIENT, PROVIDED ORAL CARE, PATIENT TOLERATED WELL.
[2017-11-14] MEDS ORDERED: RIVAROXABAN 15 MG TAB PO SCH (10:00)
[2017-11-14] MEDS ORDERED: ASCORBIC ACID 500 MG TAB GT SCH (10:00)
--- NOTE | 2017-11-14 10:07 | NUR ---
HEPARIN DRIP IS DISCONTINUED, PATIENT'S PTT IS 50.3
[2017-11-14] MEDS: NACL 0.9% IRR 250 ML BOTTLE IR SCH (13:49)
[2017-11-14] MEDS: DRY DRESSING TP SCH (13:50)
[2017-11-14] MEDS: NON ADHERENT DRESSING TP SCH ×2 (13:50)
[2017-11-14] MEDS: SKINTEGRITY HYDROGEL TP SCH (13:50)
--- NOTE | 2017-11-14 14:05 | NUR ---
PATIENT'S FAMILY AT BEDSIDE, UPDATED ON PATIENT'S CONDITION. NO SIGNS OF DISTRESS NOTED AT THIS TIME
--- NOTE | 2017-11-14 15:14 | NUR ---
DR. LEIGH IN TO SEE AND EXAMINE PATIENT, UPDATED ON PATIENT'S CONDITION. WILL FOLLOW UP ON ANY ORDERS.
--- NOTE | 2017-11-14 15:15 | NUR ---
DECREASED OXYMIZER TO 5L
--- NOTE | 2017-11-14 15:15 | NUR ---
TITRATED O2 TO 5 LPM, PER DR. LEIGH, NO SIGNS OF ACUTE DISTRESS NOTED. WILL CONTINUE TO MONITOR
[2017-11-14] MEDS ORDERED: MIDODRINE 5 MG TAB PO PRN ×2 (15:30→15:41)
[2017-11-14] MEDS ORDERED: METOCLOPRAMIDE 10 MG/10 ML SYRP UDC GT PRN (15:35)
--- NOTE | 2017-11-14 16:22 | NUR ---
FAMILY AT BEDSIDE, UPDATED ON PATIENT'S CONDITION, NO SIGNS OF DISTRESS NOTED AT THIS TIME
--- NOTE | 2017-11-14 17:57 | NUR ---
PATIENT TURNED AND REPOSITIONED, ORAL CARE PROVIDED, NO SIGNS OF DISTRESS NOTED.
--- NOTE | 2017-11-14 19:30 | NUR ---
RECEIVED REPORT FROM AM NURSE. INITIAL ASSESSMENT COMPLETED. WITH C-COLLAR. ATTACHED TO MANAGER PARK, PULSE OXIMETER. ON OXIMIZER AT 5LPM. IV ACCESS AT RIGHT IJ TLC. ON CONTINUOUS GT FEEDING. COLOSTOMY BAG IN PLACE. WOUND VAC IN PLACE. WILCOX CATH IN PLACE. ON CONTACT ISOLATION. BED IN LOW POSITION. SAFETY MEASURE ENSURE. WILL CONTINUE TO MONTIOR.
--- NOTE | 2017-11-14 19:55 | NUR ---
RECEIVED PATIENT ON 5L OXYMIZER, O2 SAT 97%. BREATH SOUNDS RHONCHI BILATERALLY WITH AUDIBLE SECRETIONS. PATIENT PRESENTS WITH WEAK COUGH EFFORT. NASOTRACHEALLY SUCTIONED PATIENT WITHOUT INCIDENT. SUCTIONED LARGE AMOUNT OF THICK YELLOW SECRETIONS. VITAL SIGNS REMAINED WITHIN NORMAL LIMITS. POST NTS VITAL SIGNS HR 57, O2 SAT 99%. POST BREATH SOUNDS CLEAR. NO RESPIRATORY DISTRESS NOTED. WILL CONTINUE TO MONITOR.
[2017-11-14] MEDS: RIVAROXABAN 15 MG TAB PO SCH (21:51)
--- NOTE | 2017-11-14 22:13 | NUR ---
DR. KENNY NOTIFIED OF MAGNESIUM RESULT OF 1.4, TAKEN IN AM TODAY. WILL FOLLOW UP FOR ANY ORDER.
[2017-11-14] MEDS ORDERED: MAG SULF 2000 MG/WATER PREMIX 50 ML IV SCH (23:00)
[2017-11-15] VITALS (11 sets, daily range): BP systolic 139–171; BP diastolic 44–70
--- NOTE | 2017-11-15 02:09 | NUR ---
DR. KENNY IN THE UNIT, DOING HIS ROUNDS. N
[2017-11-15] MEDS: HYDRAGUARD CREAM TP SCH ×3 (02:20→23:59)
[2017-11-15] MEDS: PIPER/TAZO 2.25GM/D5W PREMIX 50 ML IV SCH ×4 (05:12→23:56)
[2017-11-15] MEDS: HYDROCORTISONE NA SUCC 100 MG/2 ML VIAL IV SCH ×2 (05:12→13:17)
--- NOTE | 2017-11-15 05:40 | NUR ---
MORNING CARE DONE. PT TOLERATED WELL. NO SIGNS OF DISTRESS.
[2017-11-15] MEDS: BLOOD GLUCOSE MONITORING 1 DEV DEV FS SCH ×4 (06:46→21:34)
--- NOTE | 2017-11-15 07:00 | NUR ---
REPORT GIVEN TO AM NURSENAVARRO RN FOR CONTINUITY OF CARE.
--- NOTE | 2017-11-15 07:05 | NUR ---
RECEIVED BEDSIDE REPORT FROM EXTERNAL AUDITOR RN FOR CONTINUITY OF CARE. PATIENT IS NONVERBAL, UNABLE TO MAKE NEEDS KNOWN, OPENS EYES SPONTANEOUSLY. FLACC 0. SKIN IS NOT INTACT, SHE HAS A PRESSURE ULCER TO SACROCOCCYX WITH WOUND VAC IN PLACE, SHE ALSO HAS PRESSURE ULCER TO POSTERIOR OCCIPITAL, DRESSING DRY AND CLEAN. PATIENT HAS A RIGHT IJ TRIPLE LUMEN CATHETER, DRESSING IS CLEAN AND DRY, SITE IS ASYMPTOMATIC, LINES ARE PATENT. SHE IS ON NASAL OXIMIZER 5LPM, SUCTION BY BEDSIDE, SINUS BRADYCARDIA ON ENVIRONMENTAL PROTECTION GEOLOGIST. PATIENT HAS A NECK COLLAR IN PLACE. SHE HAS A GTUBE IN LEFT UPPER QUAD TO TUBE FEEDING, GLUCERNA 1.2. PATIENT HAS SURGICAL DRESSING IN PLACE, CLEAN AND DRY. COLOSTOMY IN PLACE, F/C IN PLACE TO YELLOW URINE WITH FEW SEDIMENTS. HOB 30 DEGREES IN LOW POSITION, CALL LIGHT WITHIN REACH, NO SIGNS OF DISTRESS. WILL CONTINUE TO MONITOR
--- NOTE | 2017-11-15 08:43 | NUR ---
PATIENT TURNED AND REPOSITIONED, COLOSTOMY BAG DRAINED, 100 MLS OUTPUT. NO SIGNS OF DISTRESS NOTED AT THIS TIME. WILL CONTINUE TO MONITOR
--- NOTE | 2017-11-15 08:55 | NUR ---
AND RESIDENT PHYSICIANS ROUNDING ON PATIENT, UPDATED ON PATIENT CONDITION. WILL FOLLOW UP ON ANY ORDERS.
[2017-11-15] MEDS: MEMANTINE 10 MG TAB GT SCH ×2 (09:26→21:35)
[2017-11-15] MEDS: COLISTIMETHATE SODIUM 75 MG in NACL 0.9% 100 ML IV SCH ×2 (09:26→21:29)
[2017-11-15] MEDS: MULTIVITAMIN/MINERALS 1 TAB PO SCH (09:26)
[2017-11-15] MEDS: ASCORBIC ACID 500 MG TAB GT SCH (09:26)
[2017-11-15] MEDS: GABAPENTIN 100 MG CAP GT SCH ×3 (09:27→16:42)
[2017-11-15] MEDS: INSULIN LANTUS 100 UNITS/ML 10 ML VIAL SUBQ SCH (09:30)
[2017-11-15] MEDS: RIVAROXABAN 15 MG TAB PO SCH ×2 (09:31→21:33)
--- NOTE | 2017-11-15 09:50 | NUR ---
DR. DRAKE AT BEDSIDE TO SEE AND EXAMINE PATIENT'S SURGICAL INCISION, WILL FOLLOW UP ON ANY ORDERS.
--- NOTE | 2017-11-15 10:00 | NUR ---
Enterprise Systems Manager Notes: I Call Patient's Daughter Filomena Yen at . These Urogynecology Physician discuss with Mrs. Yen recommendations, Order for [facility] evaluation and possible transfer as soon as a bed opens. Patients Daughter Agreed and stated that she has already discuss recommendation and Patient transfer but (Only) to [facility] at [place] when [facility] can provide a bed for patient. Patient's daughter Mrs. Yen however; stated to these senior writer her concern for patient not been able to met or go to her appointment scheduled for 11/17/17 with OP/MD for her C- COLLAR. Per Mrs. Yen it is important that Patient is seen for C-Collar or at least have MD see it and follows up with issue when patient gets transfer to services at [facility]. I Informed Mrs. Yen that these senior writer will be discussing her issue and concerns to MD and Cap Lining Machine Operator to coordinate care or follow up for patient. Mrs. Yen Thanked me for my assistance. MD Finney and Cap Lining Machine Operator Keesha made aware of Mrs. Yen concerns by these senior writer.
--- NOTE | 2017-11-15 10:15 | NUR ---
General Manager In Training Notes: I faxed all Patient's Information, MD Orders, updates, progress, notes and other Clinicals to Kathryn Guillermo from [place]. I call Kathryn at to confirm she receive all clinicals and Inf. needed. Kathryn confirmed Clinicals received and stated that she will be trying to get a telemetry bed for patient.
--- NOTE | 2017-11-15 11:46 | NUR ---
PATIENT TURNED AND REPOSITIONED, PROVIDED ORAL CARE, PATIENT TOLERATED WELL, NO SIGNS OF DISTRESS NOTED.
[2017-11-15 11:58] LABS: BASOPHILS % (AUTO) 0.1 % (0.0-2.0); HEMATOCRIT 28.9 % (36-48); HEMOGLOBIN 9.4 g/dL (12.0-16.0); LYMPHOCYTES # (AUTO) 0.6 K/uL (2.5-16.5); LYMPHOCYTES % (AUTO) 6.6 % (20.5-51.1); MEAN CORPUSCULAR HEMOGLOBIN 30 pg (27-31); MEAN CORPUSCULAR HGB CONC 33 g/dL (33-37); MEAN CORPUSCULAR VOLUME 90.6 fL (80-94); MONOCYTES # (AUTO) 0.2 K/uL (0.8-1.0); MONOCYTES % (AUTO) 2.8 % (1.7-9.3); NEUTROPHILS # (AUTO) 7.6 K/uL (1.8-7.7); NEUTROPHILS % (AUTO) 90.5 % (42.2-75.2); PLATELET COUNT (AUTO) 222 K/uL (140-450); RED BLOOD CELL COUNT(AUTO) 3.18 MIL/uL (4.20-5.40); RED CELL DISTRIBUTION WIDTH 15.4 % (11.6-13.7); WHITE BLOOD COUNT (AUTO) 8.4 K/uL (4.8-10.8)
--- NOTE | 2017-11-15 12:05 | NUR ---
RECEIVED CRITICAL LAB REPORT FOR POTASSIUM 2.2, NOTIFIED, WILL FOLLOW UP ON ANY ORDERS.
[2017-11-15 12:11] LABS: ANION GAP 7.2 (8-16); CHLORIDE 108 mmol/L (98-107); CREATININE 0.4 mg/dL (0.6-1.3); GLUCOSE 112 mg/dL (74-106); SODIUM SERUM 142 mmol/L (136-145); UREA NITROGEN, BLOOD 15 mg/dL (7-18)
[2017-11-15 12:12] LABS: MAGNESIUM 1.3 mg/dL (1.8-2.4); PHOSPHORUS 2.1 mg/dL (2.5-4.9)
[2017-11-15 12:13] LABS: POTASSIUM 2.2 mmol/L (3.5-5.1)
[2017-11-15] MEDS ORDERED: POTASSIUM CHLORIDE 40 MEQ, LIDOCAINE 1% 25 MG in NACL 0.9% 250 ML IV ONE (12:15)
--- NOTE | 2017-11-15 12:18 | NUR ---
SPOKE WITH PATIENT'S DAUGHTER REGARDING OBTAINING MEDICAL RECORDS FROM [facility], SHE GIVES TELEPHONE CONSENT FOR US TO OBTAIN RECORDS.
--- NOTE | 2017-11-15 12:45 | NUR ---
CALLED [facility] REGARDING OBTAINING MEDICAL RECORDS, SPOKE WITH [facility] [employer] BRANCH ASSOCIATE, STATES THAT SHE RECEIVED OUR FAX AND WILL BE SENDING INFORMATION.
[2017-11-15] MEDS ORDERED: POTASSIUM CHLORIDE 20% 40 MEQ/15 ML UDC GT SCH ×2 (13:00→17:00)
[2017-11-15] MEDS: NACL 0.9% IRR 250 ML BOTTLE IR SCH (13:17)
[2017-11-15] MEDS: DRY DRESSING TP SCH (13:17)
[2017-11-15] MEDS: NON ADHERENT DRESSING TP SCH ×2 (13:18)
[2017-11-15] MEDS: SKINTEGRITY HYDROGEL TP SCH (13:18)
[2017-11-15] MEDS: MAG SULF 2000 MG/WATER PREMIX 50 ML IV SCH ×2 (13:41→16:44)
--- NOTE | 2017-11-15 15:05 | NUR ---
PATIENT'S DAUGHTER CONCERNED ABOUT THE OP DOCTOR'S APPOINTMENT FOR THE C COLLAR. I SPOKE WITH DR. ROSARIO WHO DID SPEAK WITH THE DAUGHTER AND FOUND OUT THE DOCTOR AT [facility] WAS DR.JOHN ROME. DR. ROSARIO CALLED [facility] AND LEFT MESSAGE FOR DR. ROME TO CALL HIM. CALLED LEROY MARTINEZ FROM [place]. SHE SAID THAT DR. ROME WAS AN ORTHO SPINE SURGEON AND THAT [facility] HAS ORTHO SPINE SURGEONS ON STAFF. SHE SAID SHE IS TRYING TO GET A TELEMETRY BED FOR HER. I CALLED DR. HERRERA AND INFORMED HIM ABOUT THE ORTHO SPINE SURGEONS AT [facility].
--- NOTE | 2017-11-15 15:11 | NUR ---
FAMILY AT BEDSIDE, UPDATED ON PATIENT'S CONDITION. NO SIGNS OF DISTRESS NOTED AT THIS TIME.
--- NOTE | 2017-11-15 15:11 | NUR ---
DR. LEIGH IN TO SEE AND EXAMINE PATIENT, UPDATED ON PATIENT'S CONDITION. WILL FOLLOW UP ON ANY ORDERS.
--- NOTE | 2017-11-15 15:15 | NUR ---
CHANGED WOUND VAC DRESSING, COLOSTOMY BAG, AND SURGICAL INCISION DRESSING. PATIENT TOLERATED WELL, NO SIGNS OF DISTRESS NOTED.
[2017-11-15] MEDS ORDERED: PNEUMOCOCCAL VACCINE 23 MCG/0.5 ML VIAL IMVAC SCH (16:25)
--- NOTE | 2017-11-15 18:10 | NUR ---
ENDORSED CONTINUITY OF CARE TO MST RN, PATIENT PRESENTS NO SIGNS OF DISTRESS AT THIS TIME.
--- NOTE | 2017-11-15 18:32 | NUR ---
PT ARRIVED ON THE FLOOR AT 1810. PT IS ON OXIMIZER 5L. PT HAS A C-COLLAR ON. R IJ TRIPLE LUMEN ZOSYN AND MAG INFUSING. PT HAS COLOSTOMY BAG. G-TUBE IN PLACE. MIDLINE INCISION COVERED WITH DRESSING. WILCOX CATHETER IN PLACE. 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 MULTIPLE WOUNDS ON BI LATERAL UPPER AND LOWER EXTREMITIES WITH DRESSINGS IN PLACE. HEEL PROTECTORS. PT WAS MOVED TO WOUND BED. ADMINISTERED TELE MONITOR. PLAN; CONTINUE WOUND CARE, COLOSTOMY CARE, ABX THERAPY, TITRATE O2 GREATER THAN 90% AND AWAIT JONNA PLACEMENT. PER ICU NURSE ALL WOUND CARE DONE. PICTURES TAKEN. K REPLENISHED. MAG REPLENISHED. WE WILL RESUME CARE.
[2017-11-15 18:49] LABS: CREATININE 0.4 mg/dL (0.6-1.3); GLUCOSE 98 mg/dL (74-106); UREA NITROGEN, BLOOD 16 mg/dL (7-18)
--- NOTE | 2017-11-15 19:05 | NUR ---
ENDORSED PT TO MARKET RESEARCH SENIOR PROJECT MANAGER NURSE FOR CONTINUITY OF CARE. PT IN STABLE CONDITION.
--- NOTE | 2017-11-15 19:06 | NUR ---
RECEIVED BEDSIDE REPORT FROM DAY SHIFT NURSE PORTER RN, PT STABLE, NO DISTRESS NOTED, PT APHASIC AND QUADRAPLEGIC, PICC LINE TO THE R IJ TRIPLE LUMEN, PATENT, INTACT, PT ON 5LPM OXYMIZER, NO SOB, G TUBE IN PLACE, COLOSTOMY IN PLACE DRAINING BROWN SOFT FECES, WILCOX IN PLACE DRAINING YELLOW URINE WITH A LITTLE SEDIMENT, C COLLAR IN PLACE, PT FLACC 0, DRESSINGS IN PLACE, CLEAN AND INTACT, WOUND VAC IN PLACE, INITIAL ASSESSMENT DONE, ALL SAFETY PRECAUTION MET, WILL CONTINUE TO MONITOR.
[2017-11-15 19:11] LABS: ANION GAP 6.2 (8-16); CARBON DIOXIDE 31.8 mmol/L (21-32); CHLORIDE 108 mmol/L (98-107); SODIUM SERUM 143 mmol/L (136-145)
--- NOTE | 2017-11-15 20:30 | NUR ---
PT HR STAYING IN THE 40S, DR. VARGAS AWARE, PT RESTING, NO DISTRESS NOTED, TELE MONITOR VOLUME LOWERED.
--- NOTE | 2017-11-15 21:35 | NUR ---
DUE MEDICATION GIVEN, PT TOLERATED WELL, NO DISTRESS NOTED, CALL LIGHT WITHIN REACH, WILL CONTINUE TO MONITOR.
--- NOTE | 2017-11-15 23:44 | NUR ---
CHECKED ON PT, PT SLEEPING, NO DISTRESS NOTED, V/S TAKEN, WNL, CALL LIGHT WITHIN REACH, FLACC 0, WILL CONTINUE TO MONITOR.
[2017-11-16] VITALS: BP 153/46
--- NOTE | 2017-11-16 01:04 | NUR ---
NOTIFIED DR. VARGAS REGARDING PT HR IS AT 38, PT SLEEPING, NO DISTRESS NOTED, V/S WNL, STATED UNDERSTANDING, SAW THE PT.
[2017-11-16 03:54] VITALS: BP 151/46
--- NOTE | 2017-11-16 03:55 | NUR ---
CHECKED ON PT, PT SLEEPING, NO DISTRESS NOTED, CALL LIGHT WITHIN REACH, WILL CONTINUE TO MONITOR.
[2017-11-16] MEDS ORDERED: DEXTROSE 50% 50 ML SYR IVP ONE (05:38)
[2017-11-16] MEDS: DEXTROSE 50% 50 ML SYR IVP PRN ×2 (05:39→21:34)
--- NOTE | 2017-11-16 05:39 | NUR ---
CHECKED PT BLOOD SUGAR, 64, NOTIFIED DR. ALICIA DR. STATED IT IS OK TO GIVE D50, D50 ADMINISTERED PT TOLERATED WELL, WILL RECHECK BLOOD SUGAR IN 15 MINUTES
--- NOTE | 2017-11-16 06:04 | NUR ---
RECHECKED PT BLOOD SUGAR 163, PT STABLE, NO DISTRESS NOTED, CALL LIGHT WITHIN REACH, WILL CONTINUE TO MONITOR.
[2017-11-16] MEDS: PIPER/TAZO 2.25GM/D5W PREMIX 50 ML IV SCH ×4 (06:05→23:49)
[2017-11-16] MEDS: BLOOD GLUCOSE MONITORING 1 DEV DEV FS SCH ×4 (06:07→21:50)
[2017-11-16 06:37] LABS: EOSINOPHILS % (AUTO) 0.2 % (0.0-4.0); HEMATOCRIT 28.8 % (36-48); HEMOGLOBIN 9.6 g/dL (12.0-16.0); LYMPHOCYTES # (AUTO) 0.7 K/uL (2.5-16.5); LYMPHOCYTES % (AUTO) 8.9 % (20.5-51.1); MEAN CORPUSCULAR HEMOGLOBIN 30 pg (27-31); MEAN CORPUSCULAR HGB CONC 34 g/dL (33-37); MEAN CORPUSCULAR VOLUME 90.2 fL (80-94); MONOCYTES # (AUTO) 0.5 K/uL (0.8-1.0); MONOCYTES % (AUTO) 6.2 % (1.7-9.3); NEUTROPHILS # (AUTO) 6.2 K/uL (1.8-7.7); NEUTROPHILS % (AUTO) 84.7 % (42.2-75.2); PLATELET COUNT (AUTO) 217 K/uL (140-450); RED BLOOD CELL COUNT(AUTO) 3.19 MIL/uL (4.20-5.40); RED CELL DISTRIBUTION WIDTH 15.6 % (11.6-13.7); WHITE BLOOD COUNT (AUTO) 7.3 K/uL (4.8-10.8)
[2017-11-16 07:09] LABS: ANION GAP 7.2 (8-16); CHLORIDE 108 mmol/L (98-107); CREATININE 0.3 mg/dL (0.6-1.3); GLUCOSE 72 mg/dL (74-106); SODIUM SERUM 145 mmol/L (136-145); UREA NITROGEN, BLOOD 15 mg/dL (7-18)
--- NOTE | 2017-11-16 07:15 | NUR ---
ENDORSED PT TO DAY SHIFT NURSE ERIC LENNON, PT STABLE, NO DISTRESS NOTED.
[2017-11-16 07:18] LABS: MAGNESIUM 1.7 mg/dL (1.8-2.4); PHOSPHORUS 1.9 mg/dL (2.5-4.9)
--- NOTE | 2017-11-16 07:20 | NUR ---
RECEIVED PT FROM STREET SPRINKLER NURSE, KRYSTLE, PT IS ASLEEP WITH A RT IJ, PEAK LINE TRIPLE LUMEN, INTACT, NS AT KVO. PT HAS A COLOSTOMY BAG IN PLACE WITH A MINIMAL DRAINAGE NOTED AT THE RT SIDE OF ABDOMEN AND AM G-TUBE ON THE LEFT ABDOMINAL SIDE, INTACT. PT HAS A SACRAL WOUND VAC IN PLACE. PT HAS EDEMA ON BOTH HAND AND BILATERAL LEGS. PT HAS A PRESSURE ULCER ON THE LEFT AND RT SCAPULA AND A C- COLLAR IN PLACE DUE TO S/P FALL. PT HAS A WILCOX CATHETER IN PLACE AND DRAINED 550 ML OF URINE. SIDE RAILS ARE UP AND CALL LIGHT WITHIN REACH. SAFETY PRECAUTION ENFORCED AND NO SIGN OF DISTRESS NOTED. WILL CONTINUE TO MONITOR.
[2017-11-16 07:22] LABS: POTASSIUM 2.2 mmol/L (3.5-5.1)
[2017-11-16 08:00] VITALS: BP 148/49
--- NOTE | 2017-11-16 08:00 | NUR ---
PT IS ASLEEP AND ON 5L O2 VIA OXYMIZER, VITAL SIGNS TAKEN AND BP IS 148/49, HR IS JUST 37. MD INFORMED, ACKNOWLEDGED. NO OTHER UNTOWARD SIGN NOTED. WILL CONTINUE TO MONITOR.
--- NOTE | 2017-11-16 08:34 | NUR ---
RECEIVED PATIENT ON 5L OXYMIZER, O2 SAT 99%. NO RESPIRATORY DISTRESS NOTED AT THIS TIME. WILL CONTINUE TO MONITOR.
[2017-11-16] MEDS: MULTIVITAMIN/MINERALS 1 TAB PO SCH (08:58)
[2017-11-16] MEDS: ASCORBIC ACID 500 MG TAB GT SCH (08:59)
[2017-11-16] MEDS: MEMANTINE 10 MG TAB GT SCH ×2 (08:59→21:25)
[2017-11-16] MEDS: GABAPENTIN 100 MG CAP GT SCH ×3 (09:00→17:43)
[2017-11-16] MEDS: RIVAROXABAN 15 MG TAB PO SCH ×2 (09:06→21:26)
[2017-11-16] MEDS: INSULIN LANTUS 100 UNITS/ML 10 ML VIAL SUBQ SCH (09:07)
[2017-11-16] MEDS: COLISTIMETHATE SODIUM 75 MG in NACL 0.9% 100 ML IV SCH ×2 (09:30→21:25)
--- NOTE | 2017-11-16 09:30 | NUR ---
PT IS AWAKE, OPENED EYES WHEN NAME IS CALLED. MEDICATIONS GIVEN VIA G-TUBE AND IVPB AND PT TOLERATED IT. NO SIGN OF DISTRESS NOTED. SIDE RAILS ARE UP AND SAFETY PRECAUTION ENFORCED. WILL CONTINUE TO MONITOR.
[2017-11-16] MEDS ORDERED: POTASSIUM CHLORIDE 40 MEQ, LIDOCAINE 1% 25 MG in NACL 0.9% 250 ML IV SCH (11:30)
[2017-11-16 12:00] VITALS: BP 150/34
--- NOTE | 2017-11-16 12:17 | NUR ---
SPOKE WITH LEROY MARTINEZ FROM [facility] THIS MORNING. THEY ARE STILL LOOKING FOR A TELEMETRY BED AT [facility].
--- NOTE | 2017-11-16 12:50 | NUR ---
ASSISTED THE WOUND NURSE, ROSAURA IN DOING WOUND DRESSING AND WOUND VAC DONE BY WOUND CARE NURSE, WITH THE HELP OF SEWING LINE BALER. NO SIGN OF DISTRESS NOTED ON THE PT. WILL MONITOR.
--- NOTE | 2017-11-16 12:55 | NUR ---
WOUND RE-EVALUATION NOTE: INTEGUMENTARY: - MID ABDOMINAL SURGICAL SITE CHAGO IN PLACE, 10CM IN LENGTH, INCISION DRY AND CLEAN, NO S/S OF INFECTION, NO S/S WOUND DEHISCENCE -RLQ ABDOMINAL COLOSTOMY, 2 INCHES IN DIAMETER, 0.5CM TALL, [place]-STOMA SKIN INTACT, FUNCTIONING WITH SMALL AMOUNT OF SOFT DARK YELLOW STOOL OUTPUT. -OCCIPITAL STAGE 4 BOILERMAKER SHIP ASSOCIATE PRESSURE INJURY, SKULL BONE 4.5X5X0.2 CM WITH INTERSPACE/UNDERMINING BETWEEN SCALP AND SKULL BONE AROUND WOUND EDGE. SMALL AMOUNT OF SANGUINOUS DRAINAGE TO WOUND EDGE, MILD ODOR. -R/L EARS EDEMA, WITH PRESSURE INJURY STAGE 1 BOILERMAKER SHIP ASSOCIATE PRESSURE INJURIES -OLD HEALED SCAR TO NECK, LEFT LATERAL THIGH -LEFT UPPER CHEST DRY ABRASION -BUE EDEMA WITH MULTIPLE ECCHYMOSIS -LEFT SCAPULA PRESSURE INJURIES RESOLVED -LEFT SCAPULA TOWARD SHOULDER DIRECTION DRY ABRASION RESOLVED -RIGHT SCAPULA OBSERVED 2 PRESSURE INJURIES STAGE 2 RESOLVED -R/L GROINS AND PERINEUM IAD RESPONDING TO TREATMENT -SACRALCOCCYX EXTENDED TO PERIANAL PRESSURE INJURY STAGE 4 WITH S/P DEBRIDEMENT 2ND TIMES ON 11/11/17. [id number] CM, WOUND BED WITH 30% YELLOW SLOUGH, 50% GRANULATION TISSUE, REST ARE BONE AND MUSCLE OBSERVED. IRREGULAR WOUND SHAPE, [place]-WOUND SKIN REDNESS WITH WOUND EDGE UNDERMINING TISSUE OBSERVED BETWEEN 11 O'CLOCK TO 5 O'CLOCK, DEEPEST AROUND 2 O'CLOCK AND 4CM DEEP. MODERATE AMOUNT OF SEROSANGUINEOUS DRAINAGE WITH MILD ODOR PAIN MANIFESTED BY FACIAL GRIMACE. -LEFT LATERAL LEG BLOOD FILLED BLISTER 3X0.5CM -LEFT POSTERIOR ABOVE ANKLE DTI 2X3CM -LEFT 5TH T0E, LATERAL SIDE DTI 0.5X0.5CM, LEFT LATERAL SIDE HALLUX DTI 1.5X1CM -RIGHT 5TH T0E, LATERAL SIDE DTI 0.3X0.3CM, RIGHT LATERAL SIDE HALLUX DTI 1X1CM -BILATERAL HEELS BLANCHABLE REDNESS, THIN CALLUS TO RIGHT HEEL. RECOMMENDATIONS: -CHECK NECK COLLAR PLACEMENT Q SHIFT AND RELEASE Q2H X 5 MINUTES AND REAPPLY -KEEP MID ABDOMEN CHAGO INCISION DRY AND CLEAN, COVER WITH DRY DRESSING QD AND PRN IF SOILING -COLOSTOMY CARE PER NURSING PROCEDURES -WOUND VAC THERAPY TO SACRALCOCCYX WITH SILVER GRANUFOAM. SET WOUND VAC. AT 125 mmHg, CHANGE DRESSING Q72HR AND PRN BY FOLLOWING MANUFACTURE GUIDELINES. (PLEASE COVER SACRALCOCCYX BONE WITH ADAPTIC DRESSING FIRST THEN APPLY FORM DRESSING.) -CLEANSE OCCIPITAL WOUND WITH NS, APPLY HYDROGEL WITH ADAPTIC DRESSING COVER WITH DRY DRESSING, PAD WITH ABD QD AND PRN IF SOILING - LEFT SCAPULA AND RIGHT SCAPULA APPLY OPTIFORM DRESSING CHANGE Q7 DAYS AND PRN IF SOILING PREVENTION MEASUREMENT -APPLY HYDRAGUARD TO R/L EARS, R/L GROINS AND PERINEUM BIDWC AND PRN IF SOILING, HR INTERN -APPLY VERSATEL DRESSING TO LEFT LATERAL LEG BLOOD FILLED BLISTER CHANGE Q7 DAYS AND PRN IF SOILING -APPLY FORM DRESSING TO MULTIPLE DTI CHANGE Q7 DAYS AND PRN IF SOILING. AREAS INCLUDING: LEFFT POSTERIOR ABOVE ANKLE, LEFT 5TH T0E, LATERAL SIDE, LEFT (LATERAL SIDE) HALLUX, RIGHT 5TH T0E, LATERAL SIDE AND RIGHT LATERAL SIDE HALLUX -HEEL RAISER TO BILATERAL HEELS AT ALL TIMES -PRESSURE REDISTRIBUTION SURFACE ALL ABOVE RECOMMENDATIONS DISCUSSED WITH PRIMARY RN
[2017-11-16] MEDS: DRY DRESSING TP SCH (13:03)
[2017-11-16] MEDS: HYDRAGUARD CREAM TP SCH ×2 (13:03→23:49)
[2017-11-16] MEDS: NACL 0.9% IRR 250 ML BOTTLE IR SCH (13:03)
[2017-11-16] MEDS: SKINTEGRITY HYDROGEL TP SCH (13:04)
[2017-11-16] MEDS: NON ADHERENT DRESSING TP SCH ×2 (13:04)
--- NOTE | 2017-11-16 13:20 | NUR ---
PT IS ASLEEP WITH DAUGHTER ON THE BEDSIDE, VITAL SIGNS TAKEN AND MEDICATIONS GIVEN THRU G-TUBE AND IVPB. PT TOLERATED IT. NO SIGN OF DISTRESS NOTED ON THE PT. SAFETY PRECAUTION ENFORCED AND WILL CONTINUE TO MONITOR.
--- NOTE | 2017-11-16 14:23 | NUR ---
11/16/17 RD FOLLOW UP COMPLETED PLEASE REFER TO NUTRITION PROGRESS NOTE UNDER CARE ACTIVITY FOR ESTIMATED NUTRITIONAL NEEDS. 1. RECOMMEND DECREASING WATER FLUSHES TO 120ML Q4H. THIS WILL BETTER MEET PTS ESTIMATED FLUID NEEDS. 2. CONTINUE TUBE FEEDING THROUGH G-TUBE: GLUCERNA 1.2 @50ML/HR TOLERATED, PROVIDING 1440 KCAL AND 72GM PROTEIN. THIS IS ADEUQATE TO MEET 100% OF PTS ESTIMATED NEEDS. 3. RD TO FOLLOW-UP 2-3 DAYS, HIGH RISK MARI GIRON RD
--- NOTE | 2017-11-16 14:25 | NUR ---
PT IS ASLEEP AND MEDICATIONS GIVEN THRU IVPB. PT TOLERATED IT AND NO SIGN OF DISTRESS NOTED. WILL MONITOR.
[2017-11-16 16:00] VITALS: BP 134/42
[2017-11-16] MEDS ORDERED: MAG SULF 2000 MG/WATER PREMIX 50 ML IV SCH (17:00)
--- NOTE | 2017-11-16 17:25 | NUR ---
DR. LEIGH CAME AND SAW THE PT AND SPOKE TO THE DAUGHTER WELL. DR. LEIGH DECREASED THE OXYMIZER TO 2.5L AND PT TOLERATED IT. NO SIGN OF DISTRESS NOTED AND WILL CONTINUE TO MONITOR.
[2017-11-16 17:37] LABS: ANION GAP 4.3 (8-16); CARBON DIOXIDE 33.7 mmol/L (21-32); CHLORIDE 107 mmol/L (98-107); CREATININE 0.3 mg/dL (0.6-1.3); GLUCOSE 74 mg/dL (74-106); SODIUM SERUM 142 mmol/L (136-145); UREA NITROGEN, BLOOD 16 mg/dL (7-18)
[2017-11-16] MEDS: SODIUM PHOS / POTASSIUM PHOS 1 PKT PDR GT SCH (17:43)
--- NOTE | 2017-11-16 17:54 | NUR ---
RECEIVED A CALL EARLIER FROM LEROY MARTINEZ. NO BEDS YET AT [facility] . INFORMED DR. JAVIER CURRIE.
--- NOTE | 2017-11-16 19:05 | NUR ---
ENDORSED PT TO ROLLER SKATER KRYSTLE, MAGNESIUM WAS STARTED WITH. PT AND PT TOLERATED IT. PT IS STABLE AT THIS TIME.
--- NOTE | 2017-11-16 19:06 | NUR ---
RECEIVED BEDSIDE REPORT FROM DAY SHIFT NURSE ERIC RN, PT STABLE, NO DISTRESS NOTED, PICC LINE TO R IJ TRIPLE LUMEN, PATENT, INTACT, INFUSING WELL, PT ON 2.5LPM OXYMIZER, NO SOB, PT APHASIC, FLACC 0, GTUBE IN PLACE, PT TOLERATED FEEDING WELL, WILCOX IN PLACE, DRAINING YELLOW URINE WITH SEDIMENT, COLOSTOMY BAG IN PLACE, DRAINING BROWN WATERY FECES, WOUND VAC IN PLACE DRAINING SEROSANGUINEOUS FLUID, DRESSING INTACT, INITIAL ASSESSMENT DONE, ALL SAFETY PRECAUTION MET, WILL CONTINUE TO MONITOR.
[2017-11-16 20:00] VITALS: BP 120/34
--- NOTE | 2017-11-16 23:59 | NUR ---
PT BP 94/25 HR 45 PT RESTING, NO DISTRESS NOTED, NOTIFIED DR. VARGAS REGARDING PT BP, WENT TO PT BEDSIDE, CHECKED ON PT, AND STATED TO ADMINISTER NS BOLUS 500ML, HE WILL PUT THE ORDER LATER.
[2017-11-17] VITALS (10 sets, daily range): BP systolic 83–136; BP diastolic 25–39
--- NOTE | 2017-11-17 01:06 | NUR ---
NS BOLUS FINISHED, CHECKED PT BP, 88/27 HR44, PT STABLE, NO DISTRESS NOTED, NOTIFIED DR. VARGAS REGARDING PT BP STILL LOW AFTER BOLUS, STATED UNDERSTANDING, THEN SAW PT, STATED HE IS GOING TO ORDER ANOTHER BOLUS NS, NS BOLUS ADMINISTERED, PT TOLERATED WELL, NO DISTRESS NOTED, CALL LIGHT WITHIN REACH, WILL CONTINUE TO MONITOR.
[2017-11-17] MEDS ORDERED: NACL 0.9% 500 ML IV ONE ×3 (01:20→03:30)
--- NOTE | 2017-11-17 02:10 | NUR ---
NS BOLUS FINISHED INFUSING, PT BP NOW 92/29 HR 49, DR. VARGAS STATED TO RECHECK PT BP IN ONE HOUR, PT RESTING, NO DISTRESS NOTED, CALL LIGHT WITHIN REACH, WILL CONTINUE TO MONITOR.
--- NOTE | 2017-11-17 03:20 | NUR ---
RECHECKED PT BP, 83/29 HR 47, NOTIFIED DR. VARGAS REGARDING PT BP AGAIN, WENT TO PT ROOM TO CHECK PT, PT RESTING, NO DISTRESS NOTED, STATED TO ADMINISTER ANOTHER 500ML NS BOLUS, HE WILL PUT IN THE ORDER
--- NOTE | 2017-11-17 03:30 | NUR ---
NS BOLUS 500ML ADMINISTERED, PT TOLERATED WELL, WILL RECHECK PT BP IN 1 HR.
--- NOTE | 2017-11-17 04:40 | NUR ---
RECHECKED PT BP 107/38, HR 49, PT RESTING, NO DISTRESS NOTED, REPORTED TO DR. ALICIA DR. STATED TO RECHECK PT BP IN ONE HOUR.
[2017-11-17] MEDS: PIPER/TAZO 2.25GM/D5W PREMIX 50 ML IV SCH ×3 (05:27→17:17)
[2017-11-17] MEDS: DEXTROSE 50% 50 ML SYR IVP PRN ×3 (05:48→17:53)
--- NOTE | 2017-11-17 05:48 | NUR ---
RECHECKED PT BP 102/39, HR 53 PT RESTING NO DISTRESS NOTED, CHECKED PT BLOOD SUGAR 38, D50 ORDERED GIVEN, NOTIFIED DR. ALICIA DR. STATED UNDERSTANDING, WILL RECHECK PT BLOOD SUGAR IN 15 MINUTES.
[2017-11-17] MEDS: BLOOD GLUCOSE MONITORING 1 DEV DEV FS SCH ×3 (06:09→17:09)
[2017-11-17 06:50] LABS: BASOPHILS % (AUTO) 0.1 % (0.0-2.0); EOSINOPHILS # (AUTO) 0.2 K/uL (0-0.4); HEMATOCRIT 29.7 % (36-48); HEMOGLOBIN 9.8 g/dL (12.0-16.0); LYMPHOCYTES # (AUTO) 0.8 K/uL (2.5-16.5); LYMPHOCYTES % (AUTO) 9.3 % (20.5-51.1); MEAN CORPUSCULAR HEMOGLOBIN 30 pg (27-31); MEAN CORPUSCULAR HGB CONC 33 g/dL (33-37); MEAN CORPUSCULAR VOLUME 90.4 fL (80-94); MONOCYTES # (AUTO) 0.4 K/uL (0.8-1.0); NEUTROPHILS # (AUTO) 7.5 K/uL (1.8-7.7); NEUTROPHILS % (AUTO) 83.6 % (42.2-75.2); PLATELET COUNT (AUTO) 244 K/uL (140-450); RED BLOOD CELL COUNT(AUTO) 3.29 MIL/uL (4.20-5.40); RED CELL DISTRIBUTION WIDTH 15.9 % (11.6-13.7); WHITE BLOOD COUNT (AUTO) 8.9 K/uL (4.8-10.8)
[2017-11-17 07:19] LABS: MAGNESIUM 1.5 mg/dL (1.8-2.4)
--- NOTE | 2017-11-17 07:20 | NUR ---
ENDORSED PT TO DAY SHIFT NURSE NEO LENNON, PT IN STABLE CONDITION, NO DISTRESS NOTED, CALL LIGHT WITHIN REACH.
--- NOTE | 2017-11-17 07:21 | NUR ---
RECEIVED REPORT FROM CHEMICAL INSTRUMENTATION OFFICER NURSE AT BEDSIDE FOR CONTINUITY OF CARE. PT IS AAOX1. INTRODUCED SELF AND UPDATED BOARD. PT WITH RIG TRIPLE LUMEN CATH IN PLACE. ON O2 OXIMIZER 2.5L/MIN. NO SOB. WITH NON PRODUCTIVE COUGH. O2 SAT 99%. PT WITH MULTIPLE WOUNDS. PRESSURE ULCER ON SACRALCOCCYX WITH WOUND VAC. HEEL PROTECTORS ON. WILCOX CATHETER IN PLACE. G-TUBE IN PLACE WITH FEEDING AT 45ML/HR. NO SIGNS OF DISTRESS. WILL CONTINUE TO MONITOR.
[2017-11-17 07:27] LABS: ANION GAP 5.5 (8-16); CARBON DIOXIDE 32.1 mmol/L (21-32); CHLORIDE 107 mmol/L (98-107); CREATININE 0.3 mg/dL (0.6-1.3); SODIUM SERUM 142 mmol/L (136-145); UREA NITROGEN, BLOOD 19 mg/dL (7-18)
[2017-11-17 07:37] LABS: POTASSIUM 2.6 mmol/L (3.5-5.1)
[2017-11-17 07:38] LABS: GLUCOSE 35 mg/dL (74-106)
--- NOTE | 2017-11-17 08:00 | NUR ---
REPORT TO DR. HERRERA PT K 2.6, GLU 35, MAG 1.5. WILL WAIT FOR ORDERS
[2017-11-17] MEDS: INSULIN LANTUS 100 UNITS/ML 10 ML VIAL SUBQ SCH (09:00)
[2017-11-17] MEDS: ASCORBIC ACID 500 MG TAB GT SCH (09:48)
[2017-11-17] MEDS: COLISTIMETHATE SODIUM 75 MG in NACL 0.9% 100 ML IV SCH (09:48)
[2017-11-17] MEDS: SODIUM PHOS / POTASSIUM PHOS 1 PKT PDR GT SCH ×3 (09:48→17:17)
[2017-11-17] MEDS: MULTIVITAMIN/MINERALS 1 TAB PO SCH (09:49)
[2017-11-17] MEDS: MEMANTINE 10 MG TAB GT SCH (09:49)
[2017-11-17] MEDS: GABAPENTIN 100 MG CAP GT SCH ×3 (09:49→17:17)
[2017-11-17] MEDS: RIVAROXABAN 15 MG TAB PO SCH (09:55)
[2017-11-17] MEDS ORDERED: POTASSIUM CHLORIDE 40 MEQ, LIDOCAINE 1% 25 MG in NACL 0.9% 250 ML IV SCH (10:00)
--- NOTE | 2017-11-17 10:00 | NUR ---
RECHECKED B S. 103. REPOSITIONED PT AND BATHED PT WITH PRE SALES TECHNICAL CONSULTANT. LYING ON R LATERAL. NO SIGNS OF DISTRESS. WILL CONTINUE TO MONITOR.
[2017-11-17] MEDS ORDERED: MAG SULF 2000 MG/WATER PREMIX 50 ML IV SCH (11:00)
[2017-11-17] MEDS: NON ADHERENT DRESSING TP SCH ×2 (13:00→13:52)
[2017-11-17] MEDS: SKINTEGRITY HYDROGEL TP SCH (13:00)
[2017-11-17] MEDS: NACL 0.9% IRR 250 ML BOTTLE IR SCH ×2 (13:38→14:35)
[2017-11-17] MEDS: DRY DRESSING TP SCH (13:42)
[2017-11-17] MEDS: HYDRAGUARD CREAM TP SCH (13:51)
[2017-11-17] MEDS: FOAM DRESSING TP SCH (14:35)
--- NOTE | 2017-11-17 15:22 | NUR ---
RECEIVED CALL FROM LEROY AT [facility] AND SHE STATED THAT [facility] HAS A BED FOR PT AND PT CAN GO TO ROOM 210. NURSE CAN CALL REPORT TO [phone] AND ASK FOR UNIT 2 AND PT CAN TRANSFER AFTER 1900 AND ADMITTING PHYSICIAN WILL BE DR CHUNG.
[2017-11-17] MEDS ORDERED: MULT-1736 PO (17:56)
[2017-11-17] MEDS ORDERED: [UNRECOGNIZED DRUG - CODE] IR ×3 (17:56)
[2017-11-17] MEDS ORDERED: MORP2SOL18 IVP (17:56)
[2017-11-17] MEDS ORDERED: VITC500 GT (17:56)
[2017-11-17] MEDS ORDERED: ONDA2SOL45 IM/IVP (17:56)
[2017-11-17] MEDS ORDERED: ACET-1182 PO (17:56)
[2017-11-17] MEDS ORDERED: D50SYR IVP (17:56)
[2017-11-17] MEDS ORDERED: DOCU-299 PO (17:56)
[2017-11-17] MEDS ORDERED: METO5SOL20 GT (17:56)
[2017-11-17] MEDS ORDERED: GLUC-805 FS (17:56)
[2017-11-17] MEDS ORDERED: PHOS1PDR4 GT (17:56)
[2017-11-17] MEDS ORDERED: COLI150P9 IJ (17:56)
[2017-11-17] MEDS ORDERED: PRO5 PO (17:56)
[2017-11-17] MEDS ORDERED: RIVA15TA1 PO (17:56)
[2017-11-17] MEDS ORDERED: ACET-9529 PO (17:56)
[2017-11-17] MEDS ORDERED: HUMSLIDE SUBQ (17:56)
[2017-11-17] MEDS ORDERED: MAGNESIUM OXIDE 400 MG TAB GT SCH (18:40)
--- NOTE | 2017-11-17 19:00 | NUR ---
WOUND CARE DONE, CHANGED SACRALCOCCYX DRESSING AND D/C WOUND VAC. PACKED SACRAL WOUND AND COVERED WITH FOAM DRESSING. CLEANED MULTIPLE WOUNDS WITH NS. APPLIED ADAPTIC DRESSING. AND COVERED WITH FOAM DRESSING.
--- NOTE | 2017-11-17 19:01 | NUR ---
CALLED [facility] TO GIVE REPORT NURSE SAID TO CALL LATER.
--- NOTE | 2017-11-17 19:30 | NUR ---
CALLED [facility] TO GIVE REPORT, THEY SAID THEY ARE IN THE MIDDLE OF SHIFT REPORT AND TO CALL BACK AFTER 8PM. 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 ENDORSED TO EDUCATION RN NURSE NICK. PT IN STABLE CONDITION.
--- NOTE | 2017-11-17 19:31 | NUR ---
RECEIVED REPORT AT PT BEDSIDE FROM DAY SHIFT RN, FOR CONTINUITY OF CARE. PATIENT IS APHASIC, ON 2L O2 VIA OXIMIZER. UNABLE TO MAKE NEEDS KNOWN, UNABLE TO FOLLOW COMMANDS. PT HAS G-TUBE AND COLOSTOMY. PT HAS WILCOX IN PLACE WITH YELLOW, CLOUDY URINE. PT HAS MULTIPLE WOUNDS, SEE WOUND ASSESSMENT. LEFT LOWER EXTREMITY RESTRICTED FOR DVT. RESPIRATIONS EVEN AND UNLABORED. UPDATED BOARD. VITAL SIGNS WITHIN NORMAL LIMITS EXCEPT DIASTOLIC BP. PT STABLE, NO SIGNS OF DISTRESS NOTED AT THIS TIME. BED IN LOWEST POSITION, BED ALARM ON. CALL LIGHT WITHIN REACH, WILL CONTINUE TO MONITOR.
--- NOTE | 2017-11-17 20:30 | NUR ---
CALLED CITLALLI BAUMAN AT [facility] AND GAVE REPORT ON PT.
--- NOTE | 2017-11-17 20:40 | NUR ---
GAVE REPORT TO TRANSPORTERS. PT LEFT UNIT VIA GURNEY ACCOMPANIED BY TRANSPORTERS IN STABLE CONDITION. TELE MONITOR REMOVED.
== END 2017-11-17 20:40 | DRG 853 ==
LOC: MED 18:11 → MTU 21:13 → MIC 11-05 14:45 → MTU 11-15 18:15 → MIC 11-15 21:25 → MTU 11-15 21:43
PROVIDERS: ADMIT General Practice; ATTEND General Practice
PROC: 0QB10ZZ Excision of Sacrum, Open Approach (ICD-10-PCS; 2017-11-05)
PROC: 02HV33Z Insertion of Infusion Device into Superior Vena Cava, Percutaneous Approach (ICD-10-PCS; 2017-11-05)
PROC: 0QBS0ZZ Excision of Coccyx, Open Approach (ICD-10-PCS; principal; 2017-11-05 17:45)
PROC: 30233N1 Transfusion of Nonautologous Red Blood Cells into Peripheral Vein, Percutaneous Approach (ICD-10-PCS; 2017-11-06)
PROC: 0D1L0Z4 Bypass Transverse Colon to Cutaneous, Open Approach (ICD-10-PCS; 2017-11-12)
PROC: 0JB70ZZ Excision of Back Subcutaneous Tissue and Fascia, Open Approach (ICD-10-PCS; 2017-11-12)
DX: A41.9 Sepsis, unspecified organism (principal); L89.154 Pressure ulcer of sacral region, stage 4; M72.6 Necrotizing fasciitis; E43 Unspecified severe protein-calorie malnutrition; N17.0 Acute kidney failure with tubular necrosis; R65.21 Severe sepsis with septic shock; R53.2 Functional quadriplegia; I26.99 Other pulmonary embolism without acute cor pulmonale; J96.90 Respiratory failure, unspecified, unspecified whether with hypoxia or hypercapnia; G93.41 Metabolic encephalopathy; J18.1 Lobar pneumonia, unspecified organism; E87.0 Hyperosmolality and hypernatremia; D68.59 Other primary thrombophilia; E87.1 Hypo-osmolality and hyponatremia; E11.52 Type 2 diabetes mellitus with diabetic peripheral angiopathy with gangrene; I96 Gangrene, not elsewhere classified; I82.432 Acute embolism and thrombosis of left popliteal vein; I82.449 Acute embolism and thrombosis of unspecified tibial vein; I82.412 Acute embolism and thrombosis of left femoral vein; J44.0 Chronic obstructive pulmonary disease with (acute) lower respiratory infection; Z66 Do not resuscitate; G90.9 Disorder of the autonomic nervous system, unspecified; E87.6 Hypokalemia; F03.90 Unspecified dementia, unspecified severity, without behavioral disturbance, psychotic disturbance, mood disturbance, and anxiety; E86.0 Dehydration; E11.622 Type 2 diabetes mellitus with other skin ulcer; F32.9 Major depressive disorder, single episode, unspecified; E87.8 Other disorders of electrolyte and fluid balance, not elsewhere classified; E86.1 Hypovolemia; I25.10 Atherosclerotic heart disease of native coronary artery without angina pectoris; I69.365 Other paralytic syndrome following cerebral infarction, bilateral; S00.03XA Contusion of scalp, initial encounter; E11.42 Type 2 diabetes mellitus with diabetic polyneuropathy; D63.8 Anemia in other chronic diseases classified elsewhere; E11.65 Type 2 diabetes mellitus with hyperglycemia; E11.69 Type 2 diabetes mellitus with other specified complication; D75.82 Heparin induced thrombocytopenia (HIT); I49.8 Other specified cardiac arrhythmias; E83.42 Hypomagnesemia; E83.39 Other disorders of phosphorus metabolism; Z91.81 History of falling; Z95.1 Presence of aortocoronary bypass graft; Z79.2 Long term (current) use of antibiotics; Z79.82 Long term (current) use of aspirin; Z79.4 Long term (current) use of insulin; Z79.899 Other long term (current) drug therapy; Z68.32 Body mass index [BMI] 32.0-32.9, adult; Z79.01 Long term (current) use of anticoagulants
CPT/HCPCS: 36415; 70450; 71045; 76700; 80048; 80053; 80202; 80305; 81001; 81003; 82040; 82140; 82150; 82272; 82306; 82533; 82948; 83036; 83540; 83605; 83690; 83735; 83880; 84100; 84132; 84436; 84439; 84443; 84479; 84484; 85025; 85045; 85610; 85730; 86886; 86900; 86901; 86920; 87040; 87070; 87081; 87086; 87186; 88304; 90732; 93005; 93925; 93970; 96360; 96361; 99285; A6248; J0770; J1170; J1644; J1720; J1815; J1940; J2001; J2250; J2270; J2543; J2704; J2916; J3010; J3370; J3475; J3480; J3490; J7030; J7042; J7060; J8597; P9016; P9046; Q0092; Q0163